=== PATIENT | male | born 1980 | race Caucasian/White ===

== ENCOUNTER 2023-11-02 15:26 | Inpatient (IN) | payer OTHER, SELFPAY ==
[2023-11-02] VITALS (7 sets, daily range): BP systolic 118–133; BP diastolic 64–96; PULSE 64–94; RESP 14–18; TEMP 36–37.2; O2SAT 95–100; BMI 30.9; BMI 30.8
--- NOTE | 2023-11-02 15:40 | EDS_ITS ---
HPI HPI - GI History of Present Illness Chief Complaint: Abd Pain Narrative Narrative: 42-year-old male who denies significant past medical history presents with diverticulitis on CT scan with possible abscess. He relates history that over the last week he has had abdominal pain and bloating, along with obstipation. No fevers or chills. He may have been nauseated but he forced himself to vomit which made him feel better temporarily. He has been showing improvement over the last 5 days with his abdominal pain, but he saw his primary care provider who ordered an outpatient CT with oral and IV contrast. After the CT was performed performed as an outpatient, he went home and had 2 large bowel movements and feels improved. However, he was told that the CT read showed diverticulitis with abscess, so he needed to come to the emergency department and be admitted for a few rounds of IV antibiotics. He denies any exacerbating or alleviating factors but states that he is feeling improved with his abdominal pain. Additionally, he denies any past abdominal surgical history. PFSH PFS Medical History no medical history Allergy/AdvReac Type Severity Reaction Status Date / Time amoxicillin Allergy Intermediate Hives Verified 11/02/23 15:29 Social History Smoking Status: Light Smoker (<10/day) ROS ROS ED ROS Narrative Constitutional: No fever, no chills. HEENT: No sore throat. No neck pain. No loss of vision. No rhinorrhea. Cardiovascular: No chest pain. No palpitations. No pedal edema. Respiratory: No cough, no shortness of breath. Abdominal: No abdominal pain. Positive nausea. No vomiting. Positive obstipation. Mild diffuse abdominal pain, improving. Genitourinary: No dysuria. No hematuria. Musculoskeletal: No myalgias. No arthralgias. Neurologic: No headaches. No dizziness. No lightheadedness. Skin: No rash. No change in color. Psychiatric: No depression. No anxiety. EXAM Physical Exam Narrative Exam Narrative: Afebrile. Vital signs noted. HEENT: Normocephalic. Atraumatic. PERRL, EOMI. Neck soft and supple. No point tenderness or step off. Cardiovascular: Regular rate and rhythm. No murmurs, rubs, or gallops appreciated. Respiratory: No tachypnea. Lungs clear to auscultation bilaterally. Gastrointestinal: Abdomen soft, nontender, with normoactive to slightly decreased bowel sounds. No rebound or guarding. Neurological: Awake. Alert. Nonfocal, nonlateralizing. Skin: No rash. Normal color. No pallor. Musculoskeletal: No pedal edema. Full range of motion extremities. Const Vital Signs: 11/02/23 15:27 Temperature 96.8 F L Temperature Source Temporal Pulse Rate 94 Respiratory Rate 16 Blood Pressure 131/96 H Blood Pressure Mean 107 Pulse Ox 100 Oxygen Delivery Method Room Air MDM MDM MDM Narrative Medical decision making narrative: I do not feel that the differential is warranted as he presents with imaging studies saying that he has diverticulitis. I reviewed the CT results from the outside facility and there is marked inflammatory changes of the sigmoid colon consistent with diverticulitis. Superior and to the left of the colon is a hypo attenuating focus with an area suspicious for phlegmon versus abscess. He may have a microperforation. There is extraluminal punctate air and superior into the left of the sigmoid is an air-fluid level. There is also moderate stool retention. I will obtain a CBC and CMP and start him on Cipro and Flagyl as he has hives to amoxicillin. I will discuss patient with Dr. Beauchamp with general surgery. I reviewed his laboratory work and he has a leukocytosis of 28.2, hemoglobin normal at 15. He has elevated neutrophils of 73 and band of 8. His CMP is significant for a sodium of 130, LFTs are slightly elevated with AST of 58 and ALT of 105 with slightly elevated alk phos. In discussion with Dr. Beauchamp, he was able to review the CT imaging that had been downloaded from the outside facility. Patient will be admitted to the medical surgical floor. Patient is in stable condition. History & Record Review Discussion w/independent historian: Patient Lab Data Attestation: I reviewed the patient's lab results. Labs: Laboratory Results - last 24 hr 11/02/23 15:40 WBC 28.2 H RBC 4.95 Hgb 15.0 Hct 44.0 MCV 88.9 MCH 30.3 MCHC 34.1 RDW Std Deviation 45.5 H RDW Coeff of Hayden 14.1 Plt Count 370 MPV 10.4 Neut % (Auto) Not Reportable Absolute Neuts (auto) 22.8 H Absolute Lymphs (auto) 2.54 Total Counted 100 Neutrophils % (Manual) 73 H Band Neutrophils % 8 H Lymphocytes % (Manual) 9 L Monocytes % (Manual) 5 Eosinophils % (Manual) 1 Metamyelocytes % 1 Myelocytes % 3 H Diff Path Review May foll Platelet Estimate ADEQUATE RBC Morphology NORM C+C Sodium 130 L Potassium 3.4 L Chloride 93 L Carbon Dioxide 32.0 Anion Gap 5 BUN 16 Creatinine 1.14 Estim Creat Clear Calc 86.27 Est GFR (MDRD) Af Amer 90 Est GFR (MDRD) Non-Af 74 BUN/Creatinine Ratio 14.0 Glucose 116 H Calcium 9.3 Total Bilirubin 1.20 H AST 58 H ALT 105 H Alkaline Phosphatase 148 H Total Protein 8.1 Albumin 3.3 Globulin 4.8 H Albumin/Globulin Ratio 0.7 L Management Discussion w/another healthcare provider: [employer] Engine [employer] (Dr. Beauchamp, general surgery) Discharge Plan Dx/Rx/DC Orders Clinical Impression: Hyponatremia, Leukocytosis, Sigmoid diverticulitis, Colonic diverticular abscess Disposition Disposition: Acute Care Hospital [facility]
[2023-11-02 15:49] LABS: Mean Corp Hgb Conc 34.1 g/dL (32-36); Mean Corpuscular Hgb 30.3 pg (27.0-32.0); Mean Corpuscular Volume 88.9 fL (80-94); Mean Platelet Vol. 10.4 fl (6.2-12.0); POSITIVE COUNT YES; POSITIVE DIFFERENTIAL YES; POSITIVE MORPHOLOGY YES; Platelet Count 370 K/mm3 (150-450); RBC Distribution Width CV 14.1 % (11.6-14.6); RBC Distribution Width SD 45.5 fl (35.1-43.9); Red Blood Count 4.95 M/mm3 (4.6-6.2); White Blood Count 28.2 K/mm3 (4.4-11.0)
[2023-11-02] MEDS: 0.9% Normal Saline (1000mL) 1,000 ML 1000 ML IV (15:49)
[2023-11-02 15:55] LABS: Differential Indicated MANUAL DIFF
[2023-11-02 16:04] LABS: ALB/GLOB Ratio 0.7 RATIO (0.9-2.4); AST(SGOT) 58 U/L (15-37); Alanine Aminotransfer ALT/SGPT 105 U/L (16-61); Albumin, Serum 3.3 g/dL (3.2-5.0); Alkaline Phosphatase 148 U/L (45-117); Anion Gap 5 (5-15); BUN 16 mg/dL (7-18); Calcium,Total 9.3 mg/dL (8.5-10.1); Chloride 93 mmol/L (98-107); Creatinine, Serum 1.14 mg/dL (0.70-1.30); EST Glomerular Filtration Rate 74 mL/min (>60); Est Glom Filt Rate - Afr Amer 90 mL/min (>60); Estimated Creatinine Clearance 86.27 ml/min; Globulin 4.8 g/dL (2.2-4.2); Glucose 116 mg/dL (74-106); Potassium 3.4 mmol/L (3.5-5.1); Protein, Total 8.1 g/dL (6.4-8.2); Sodium Level 130 mmol/L (136-145)
[2023-11-02] MEDS: Ciprofloxacin 400 MG/200 ML BAG 200 MG IV (16:27)
[2023-11-02 16:46] LABS: Eosinophil 1 % (0-5); Lymphocyte 9 % (19-41); Metamyelocyte 1 % (0-1); Monocyte 5 % (0-10); Myelocyte 3 % (0-0); Neutrophil-Band 8 % (0-5); Neutrophil-Segmented 73 % (47-70); Total Cells Counted 100 (MANUAL DIFF)
[2023-11-02 16:47] LABS: Absolute Lymphocyte Count 2.54 X10^3/uL (0.83-4.51); Absolute Neutrophil Count 22.8 X10^3/uL (2.0-7.7); Platelet Estimate ADEQUATE (ADEQ); Red Cell Morphology NORM C+C NORMAL (NORM C&C)
--- NOTE | 2023-11-02 17:13 | PCM.HP.STD ---
HPI - General General Date of Service: 11/02/23 HPI Narrative JOE GARCÍA, is a 42 M who presents to [facility] after being referred to present for emergency evaluation upon a reading of an outpatient CT scan that was arranged through his primary care provider and performed at [facility]. He shares that he has had approximately 1 week of crampy abdominal pain and constipation. He shares that he was only able to manage small bowel movements despite doing things like milk of magnesia and additional fiber. He does confirm that he was passing flatus through these times. It became so uncomfortable with his inability to have a bowel movement and is associated bloating that he began inducing vomiting to clear stomach acid. He also reports that his appetite was minimal through this time. He denies any associated fevers, chills, or nausea. Following his CT imaging performed earlier today he returned home where he had 2 large bowel movements and now reports that this significantly improved his symptoms. Patient's CT results above showed evidence of a combination of extraluminal air and phlegmon. Laboratories were obtained in our ER and showed a white blood cell count of 28,[address] imaging results were digitally pushed through to our hospital and are available in the PACS system. Patient reports a possible intermittent history of similar symptoms which he suggested occurred with the frequency no more than once per year. He does mention that these were associated with some lower abdominal cramps and constipation, but always self-limited. He otherwise denies any present diagnoses. He has no history of abdominal surgery. He denies any family history of diverticulitis, inflammatory bowel disease, or colon cancer. He has never undergone colonoscopy himself. FORMERLY [facility], [facility]–1983 Medical History no medical history Allergy/AdvReac Type Severity Reaction Status Date / Time amoxicillin Allergy Intermediate Hives Verified 11/02/23 15:29 Social History Smoking Status: Light Smoker (<10/day) ROS Constitutional Constitutional: Denies chills or fever(s) Gastrointestinal Gastrointestinal: Reports abdominal pain, constipation and vomiting; Denies diarrhea or nausea Genitourinary Genitourinary: Denies dysuria Vital Signs Vital Signs Vital Signs: 11/02/23 15:27 Temperature 96.8 F L Temperature Source Temporal Pulse Rate 94 Respiratory Rate 16 Blood Pressure 131/96 H Blood Pressure Mean 107 Pulse Ox 100 Oxygen Delivery Method Room Air Weight Weight: 215 lb 9.6 oz Body Mass Index (BMI) 30.9 Physical Exam Const alert, oriented x3, no apparent distress and well nourished General Appearance: cooperative Resp normal respiratory effort GI GI Narrative: Hirsute, obese, umbilical herniation visible. Abdomen is soft and largely nontender to palpation (even focusing over the suprapubic and mid to lower abdomen). He does have tenderness with any significant palpation over his umbilical hernia which is soft and feels to be fat?containing Results Lab / Micro Data 11/02/23 15:40 11/02/23 15:40 Labs: Laboratory Results - last 24 hr 11/02/23 15:40: WBC 28.2 H, RBC 4.95, Hgb 15.0, Hct 44.0, MCV 88.9, MCH 30.3, MCHC 34.1, RDW Std Deviation 45.5 H, RDW Coeff of Hayden 14.1, Plt Count 370, MPV 10.4, Neut % (Auto) Not Reportable, Absolute Neuts (auto) 22.8 H, Absolute Lymphs (auto) 2.54, Total Counted 100, Neutrophils % (Manual) 73 H, Band Neutrophils % 8 H, Lymphocytes % (Manual) 9 L, Monocytes % (Manual) 5, Eosinophils % (Manual) 1, Metamyelocytes % 1, Myelocytes % 3 H, Diff Path Review March, Platelet Estimate ADEQUATE, RBC Morphology NORM C+C, Sodium 130 L, Potassium 3.4 L, Chloride 93 L, Carbon Dioxide 32.0, Anion Gap 5, BUN 16, Creatinine 1.14, Estim Creat Clear Calc 86.27, Est GFR (MDRD) Af Amer 90, Est GFR (MDRD) Non-Af 74, BUN/Creatinine Ratio 14.0, Glucose 116 H, Calcium 9.3, Total Bilirubin 1.20 H, AST 58 H, ALT 105 H, Alkaline Phosphatase 148 H, Total Protein 8.1, Albumin 3.3, Globulin 4.8 H, Albumin/Globulin Ratio 0.7 L Assessment & Plan Assessment/Plan (1) Colonic diverticular abscess: (2) Sigmoid diverticulitis: PLAN: Plan This is a 42-year-old male with no significant past medical history presents with a weeklong history of constipation and crampy abdominal pain. He had an outpatient CT scan performed today through an outside hospital that showed evidence of complicated diverticulitis. Following the CT scan he had a number of bowel movements from the imaging contrast and reports significant spontaneous resolution of his symptoms. In fact, on exam he denies tenderness with deeper palpation in the vicinity of the inflammation showing on CT imaging. However, he does have a leukocytosis of 28,[address] imaging shows a contained area of air/phlegmon approximately 5 cm in size. I held a detailed conversation with the patient and his spouse regarding the natural history of diverticulitis and reviewed his personal case details with them. With the benign nature of his exam, I would like to proceed with conservative management upfront. Patient does have a history of hives to amoxicillin so he has been started empirically on Cipro and Flagyl. At this juncture I will plan to admit to inpatient and continue these antibiotics with plans to reimage in 48 hours to assess for any possible need for percutaneous drainage. Charges/Coding Visit Charges Inpatient E&M: 06132 Init Hosp L2
--- NOTE | 2023-11-02 17:29 | NURSING ---
MED SURG NICCI DIVERTICULITIS, DIVERTICULAR ABSCESS
[2023-11-02] MEDS: metroNIDAZOLE 500 MG/100 ML BAG 100 MG IV ×2 (17:34→21:43)
--- NOTE | 2023-11-02 17:35 | NURSING ---
MED SURG BOR
[2023-11-02] MEDS: 0.9% Normal Saline (1000mL) 1,000 ML 125 ML IV (21:41)
[2023-11-02] MEDS: 0.9% Saline Lock 10 ML Syringe IV (21:43)
[2023-11-03 01:58] VITALS: BP 131/78; PULSE 73; RESP 16; TEMP 36.8; O2SAT 95
[2023-11-03] MEDS: Ciprofloxacin 400 MG/200 ML BAG 200 MG IV ×3 (02:00→20:49)
[2023-11-03] MEDS: metroNIDAZOLE 500 MG/100 ML BAG 100 MG IV ×3 (06:18→23:27)
[2023-11-03] MEDS: 0.9% Normal Saline (1000mL) 1,000 ML 125 ML IV ×2 (06:19→20:12)
[2023-11-03 06:23] VITALS: BP 135/98; PULSE 70; RESP 18; TEMP 36.7; O2SAT 95
--- NOTE | 2023-11-03 07:22 | PCM.PN.SRG ---
Subjective Subjective Patient seen and examined during AM rounds. He reports that he feels somewhat better and that this is the best he has felt in over a week. He confirms 3 additional bowel movements overnight. He denies any difficulty with urination. Objective Data Objective Data Vital Signs: Vital Signs Temp Pulse Resp BP Pulse Ox O2 Del Method 98.1 F 70 18 135/98 H 95 Room Air 11/03/23 06:23 11/03/23 06:23 11/03/23 06:23 11/03/23 06:23 11/03/23 06:23 11/03/23 06:23 Oxygen Delivery Method Room Air Weight: 215 lb 6.266 oz Body Mass Index (BMI) 30.8 Intake & Output: Intake and Output for Last 24 Hours 11/01/23 11/02/23 11/03/23 23:59 23:59 23:59 Intake Total 1400 / 1400 1200 / 1200 Balance 1400 / 1400 1200 / 1200 Lab / Micro Data 11/02/23 15:40 11/02/23 15:40 Labs: Laboratory Results - last 24 hr 11/02/23 15:40: WBC 28.2 H, RBC 4.95, Hgb 15.0, Hct 44.0, MCV 88.9, MCH 30.3, MCHC 34.1, RDW Std Deviation 45.5 H, RDW Coeff of Hayden 14.1, Plt Count 370, MPV 10.4, Neut % (Auto) Not Reportable, Absolute Neuts (auto) 22.8 H, Absolute Lymphs (auto) 2.54, Total Counted 100, Neutrophils % (Manual) 73 H, Band Neutrophils % 8 H, Lymphocytes % (Manual) 9 L, Monocytes % (Manual) 5, Eosinophils % (Manual) 1, Metamyelocytes % 1, Myelocytes % 3 H, Diff Path Review March, Platelet Estimate ADEQUATE, RBC Morphology NORM C+C, Sodium 130 L, Potassium 3.4 L, Chloride 93 L, Carbon Dioxide 32.0, Anion Gap 5, BUN 16, Creatinine 1.14, Estim Creat Clear Calc 86.27, Est GFR (MDRD) Af Amer 90, Est GFR (MDRD) Non-Af 74, BUN/Creatinine Ratio 14.0, Glucose 116 H, Calcium 9.3, Total Bilirubin 1.20 H, AST 58 H, ALT 105 H, Alkaline Phosphatase 148 H, Total Protein 8.1, Albumin 3.3, Globulin 4.8 H, Albumin/Globulin Ratio 0.7 L Physical Exam Resp normal respiratory effort GI GI Narrative: Nondistended, soft, nontender to palpation even deeper palpation across the left lower quadrant and suprapubic positions Assessment & Plan Assessment/Plan (1) Colonic diverticular abscess: (2) Sigmoid diverticulitis: PLAN: Plan This is a 42-year-old male with no significant past medical history presents with a weeklong history of constipation and crampy abdominal pain. He had an outpatient CT scan performed today through an outside hospital that showed evidence of complicated diverticulitis. He was admitted here on 11/02/2023 after he was referred for emergency room evaluation upon reporting of this CT imaging. Overnight he had an uneventful course and continues to report near complete resolution of his symptoms. His exam remains benign. ?Follow-up a.m. labs ? Patient okay for clear liquid diet with Ensure clears ? Planning to repeat CT imaging of the abdomen pelvis with p.o. and IV contrast tomorrow Charges/Coding Visit Charges Inpatient E&M: 95094 Subs Hosp L2
[2023-11-03 07:43] LABS: Hematocrit 41.5 % (40-54); Hemoglobin 14.2 g/dL (13.0-16.5); Mean Corp Hgb Conc 34.2 g/dL (32-36); Mean Corpuscular Hgb 30.5 pg (27.0-32.0); Mean Corpuscular Volume 89.1 fL (80-94); Mean Platelet Vol. 10.5 fl (6.2-12.0); POSITIVE COUNT YES; POSITIVE DIFFERENTIAL YES; POSITIVE MORPHOLOGY YES; Platelet Count 374 K/mm3 (150-450); RBC Distribution Width CV 14.5 % (11.6-14.6); RBC Distribution Width SD 47.2 fl (35.1-43.9); Red Blood Count 4.66 M/mm3 (4.6-6.2); White Blood Count 18.5 K/mm3 (4.4-11.0)
[2023-11-03 07:49] LABS: Differential Indicated MANUAL DIFF
[2023-11-03 08:17] LABS: Anion Gap 8 (5-15); BUN 11 mg/dL (7-18); BUN/Creat Ratio 14.2 RATIO (10-20); Calcium,Total 8.2 mg/dL (8.5-10.1); Chloride 101 mmol/L (98-107); Creatinine, Serum 0.78 mg/dL (0.70-1.30); EST Glomerular Filtration Rate 116 mL/min (>60); Est Glom Filt Rate - Afr Amer 140 mL/min (>60); Estimated Creatinine Clearance 126.09 ml/min; Glucose 89 mg/dL (74-106); Magnesium 2.7 mg/dL (1.6-2.6); Phosphorus 2.7 mg/dL (2.5-4.9); Potassium 3.1 mmol/L (3.5-5.1); Sodium Level 137 mmol/L (136-145)
[2023-11-03 09:02] LABS: Eosinophil 1 % (0-5); Lymphocyte 15 % (19-41); Metamyelocyte 1 % (0-1); Monocyte 4 % (0-10); Myelocyte 2 % (0-0); Neutrophil-Band 4 % (0-5); Neutrophil-Segmented 73 % (47-70); Platelet Estimate ADEQUATE (ADEQ); Red Cell Morphology NORM C+C NORMAL (NORM C&C); Total Cells Counted 100 (MANUAL DIFF)
[2023-11-03 09:03] LABS: Absolute Lymphocyte Count 2.79 X10^3/uL (0.83-4.51); Absolute Neutrophil Count 14.2 X10^3/uL (2.0-7.7)
[2023-11-03 09:19] VITALS: BP 135/91; PULSE 84; RESP 18; TEMP 36.8; O2SAT 98
--- NOTE | 2023-11-03 12:05 | CASEMGMT ---
SOCO SWANN Assessment: Face to Face with pt for initial transition planning/care coordination assessment. RN SHREE introduced self and role at [facility], pt voices understanding and consents to assessment. Pt is A/O x4 and answers all questions appropriately at this time. Patient sitting up in chair, no distress. Patient's mother and present, patient agreeable to assessment with visitors present. Care providers, pharmacy, and demographics verified/updated. Admitting Dx: Complicated diverticulitis. PCP: Dr. Jamar Roldan. Specialists: None. Preferred Pharmacy: [facility] in [place]. Insurance: [employer]. Prescription Benefit: yes LW/HPOA: Pt denies having a LW/DPOA and denies need for info regarding AD. LNOK: Capri Clark, . Living Arrangements: Pt lives with and 2 children. One story home with 2 steps to enter. Patient states I with ADLs and denies concerns at home. Transportation: Pt drives self and denies concerns with transportation. DME: Cane and walker, doesn't use AD. HHC/SNF: Denies hx. Pt states no concerns with going home at time of dc. Pt states no further concerns/needs. CM to follow. Advised pt to ask CM if any further question/concerns/needs arise, voices understanding. Pt Goal: Home. Plan: Home.
[2023-11-03 13:56] LABS: Pathologist Review Reviewed
[2023-11-03 15:30] VITALS: BP 126/91; PULSE 81; RESP 18; TEMP 37.1; O2SAT 99
[2023-11-03 20:18] VITALS: BP 128/79; PULSE 65; RESP 16; TEMP 36.4; O2SAT 95
[2023-11-03] MEDS: 0.9% Saline Lock 10 ML Syringe IV (20:48)
[2023-11-04] VITALS (18 sets, daily range): BP systolic 123–171; BP diastolic 81–129; PULSE 64–73; RESP 12–18; TEMP 36.4–36.8; O2SAT 92–99
[2023-11-04] MEDS: 0.9% Saline Lock 10 ML Syringe IV ×2 (04:33→05:46)
[2023-11-04] MEDS: metroNIDAZOLE 500 MG/100 ML BAG 100 MG IV ×2 (04:34→14:54)
[2023-11-04] MEDS: 0.9% Normal Saline (1000mL) 1,000 ML 75 ML IV (06:41)
--- NOTE | 2023-11-04 07:00 | CT_ITS ---
EXAM: CT abdomen and pelvis with contrast. HISTORY: Perforated sigmoid diverticulitis TECHNIQUE: CT Abdomen And Pelvis W/ Contrast Injection. A radiation dose optimization technique was used for this scan. COMPARISON: None. LIMITATIONS: None. LOWER CHEST: Mild atelectasis in the left lung base.. LIVER: Normal. GALLBLADDER: Normal. BILE DUCTS: Normal. PANCREAS: Normal. SPLEEN: Normal. ADRENAL GLANDS: Normal. KIDNEYS/URETERS/BLADDER: Cyst in the left kidney. No hydronephrosis. AORTA: Normal caliber. BOWEL/MESENTERY: Multiple diverticula are identified. There is extensive pericolonic inflammatory change at the sigmoid colon. A collection of fluid and gas in the same region measures 6.2 x 6 cm. No small bowel obstruction. APPENDIX: Normal. PERITONEUM: No gross free fluid.. REPRODUCTIVE ORGANS: Normal. BONES/SOFT TISSUES: No acute fracture. Right hip prosthesis. 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 OTHER: None. CONCLUSION: Sigmoid diverticulitis with localized perforation and a 6.2 cm abscess. Electronically Signed: Yonatan Obando MD at 7:42 EST , CT/Abdomen/Pelvis WITH Contrast IMPRESSION: undefined
[2023-11-04 08:15] LABS: Hematocrit 41.1 % (40-54); Hemoglobin 13.9 g/dL (13.0-16.5); Mean Corp Hgb Conc 33.8 g/dL (32-36); Mean Corpuscular Hgb 30.2 pg (27.0-32.0); Mean Corpuscular Volume 89.3 fL (80-94); Mean Platelet Vol. 10.7 fl (6.2-12.0); POSITIVE COUNT YES; POSITIVE MORPHOLOGY YES; Platelet Count 377 K/mm3 (150-450); RBC Distribution Width CV 14.5 % (11.6-14.6); White Blood Count 15.3 K/mm3 (4.4-11.0)
[2023-11-04 08:24] LABS: Differential Indicated MANUAL DIFF
--- NOTE | 2023-11-04 08:24 | CT_ITS ---
PROCEDURE: CT DIRECTED ABSCESS DRAINAGE, PERITONEAL DATE OF EXAMINATION: PROCEDURE: CT DIRECTED ABSCESS DRAINAGE, PERITONEAL DATE OF EXAMINATION: INDICATION: Male, 42 years old. PHYSICIAN: Lobo Schofield M.D. CONSENT: Written informed consent was obtained having explained the risks, benefits and alternatives in detail with the patient who accepted the risks and agreed to proceed. Laboratory review and clinical assessment was performed. CONSCIOUS SEDATION PROTOCOL: The Drugs used were: 5 mg Versed, IV., and 125 mcg Fentanyl, IV. The sedation time was: 15 minutes. The conscious sedation protocol was independently monitored. RADIATION DOSAGE (If Supplied By Facility): CTDIvol = ( 15.5 ) mGy, DLP = ( 1113.17 ) mGycm. Individualized dose optimization techniques were utilized. TECHNIQUE: CT sections were made through the abdomen and pelvis revealing an abscess in the left side of the pelvis adjacent to the sigmoid colon. The skin surface was prepped and draped in a sterile fashion. Puncture of this collection was performed initially with a 18-gauge biopsy needle and fluid was aspirated. An 8 Turkmen Drainage catheter was then inserted into the collection and formed into position. Additional fluid was aspirated for a total of approximately 20 cc of cloudy red fluid. The catheter was secured into position to allow for continued drainage. Followup CT sections reveals good position of the catheter. CT/CT Guidance Abscess Drg w/Cath IMPRESSION: 1. CT directed drainage of a fluid /abscess collection using CT image guidance and image documentation as described. 2. Conscious Sedation protocol utilized with independent monitoring Electronically Signed: Lobo Schofield MD at 13:50 EST ,
--- NOTE | 2023-11-04 08:24 | PCM.PN.SRG ---
Subjective Subjective Patient seen and examined during AM rounds. He reports no acute events overnight. He states that his abdominal pain is about as it was yesterday. Objective Data Objective Data Vital Signs: Vital Signs Temp Pulse Resp BP Pulse Ox O2 Del Method 98.0 F 73 16 131/88 H 98 Room Air 11/04/23 04:23 11/04/23 04:23 11/04/23 04:23 11/04/23 04:23 11/04/23 04:23 11/04/23 04:23 Oxygen Delivery Method Room Air Weight: 215 lb 6.266 oz Body Mass Index (BMI) 30.8 Intake & Output: Intake and Output for Last 24 Hours 11/02/23 11/03/23 11/04/23 23:59 23:59 23:59 Intake Total 1400 / 1400 3186.67 / 4186.67 2200 / 2200 Output Total 360 / 360 Balance 1400 / 1400 2826.67 / 3826.67 2200 / 2200 Lab / Micro Data 11/04/23 07:00 11/04/23 07:00 Labs: Laboratory Results - last 24 hr 11/02/23 15:40: Diff Path Review Reviewed 11/03/23 06:56: Absolute Neuts (auto) 14.2 H, Absolute Lymphs (auto) 2.79, Total Counted 100, Neutrophils % (Manual) 73 H, Band Neutrophils % 4, Lymphocytes % (Manual) 15 L, Monocytes % (Manual) 4, Eosinophils % (Manual) 1, Metamyelocytes % 1, Myelocytes % 2 H, Diff Path Review May , Platelet Estimate ADEQUATE, RBC Morphology NORM C+C 11/04/23 07:00: WBC 15.3 H, RBC 4.60, Hgb 13.9, Hct 41.1, MCV 89.3, MCH 30.2, MCHC 33.8, RDW Std Deviation 47.0 H, RDW Coeff of Hayden 14.5, Plt Count 377, MPV 10.7, Neut % (Auto) Not Reportable Radiography Diagnostic Testing: Radiology Impression Abdomen/Pelvis CT 11/04/23 07:00 IMPRESSION: undefined ADDENDUM: 11/04/23821 IMPRESSION: undefined Physical Exam Const oriented x3 and no apparent distress Resp normal respiratory effort GI GI Narrative: Mild tenderness in the mid to lower abdomen without guarding. Umbilical hernia remains stable in appearance. Otherwise unremarkable abdominal exam. Assessment & Plan Assessment/Plan (1) Colonic diverticular abscess: (2) Sigmoid diverticulitis: PLAN: Plan This is a 42-year-old male with no significant past medical history presents with a weeklong history of constipation and crampy abdominal pain. He had an outpatient CT scan performed today through an outside hospital that showed evidence of complicated diverticulitis. He was admitted here on 11/02/2023 after he was referred for emergency room evaluation upon reporting of this CT imaging. Overnight he had an uneventful course and CT imaging was repeated this morning. The area in question from his prior scan. More consolidated and measures 6 x 6 cm. I believed identified a window between patient's small bowel and colon and this was confirmed by radiology so he will now proceed to the radiology suite for CT-guided percutaneous drainage of this abscess. ? Continue to trend a.m. labs ? Follow-up abscess cultures ? Continue empiric Cipro and Flagyl ? Patient okay for clear liquid diet with Ensure clears Charges/Coding Visit Charges Inpatient E&M: 63703 Subs Hosp L2
[2023-11-04 08:31] LABS: Anion Gap 6 (5-15); BUN 8 mg/dL (7-18); BUN/Creat Ratio 10.5 RATIO (10-20); Calcium,Total 8.1 mg/dL (8.5-10.1); Chloride 99 mmol/L (98-107); Creatinine, Serum 0.76 mg/dL (0.70-1.30); EST Glomerular Filtration Rate 119 mL/min (>60); Est Glom Filt Rate - Afr Amer 144 mL/min (>60); Glucose 90 mg/dL (74-106); Magnesium 2.5 mg/dL (1.6-2.6); Phosphorus 2.9 mg/dL (2.5-4.9); Potassium 3.2 mmol/L (3.5-5.1); Sodium Level 134 mmol/L (136-145)
[2023-11-04] MEDS: Ciprofloxacin 400 MG/200 ML BAG 200 MG IV ×2 (08:54→23:22)
--- NOTE | 2023-11-04 09:00 | NURSING ---
Pt aware that Radiology wants to put a drain in. Pt wanted to talk to Dr. Schofield about his options. Ralph in Radiology aware and states she can see if Twila his MATERIAL MOVER could come up and talk to pt. Pt understands he is npo now. Ralph is aware that pt got done drinking his 240cc vegetable broth when this RN entered his room at approxmately 0840am this morning.
[2023-11-04 09:09] LABS: International Normalized Ratio 1.1; Prothrombin Time (Protime)PT. 14.1 SECONDS (11.7-14.9)
[2023-11-04 09:10] LABS: Partial Thromboplast Time 33.2 Seconds (24.1-36.2)
[2023-11-04 09:54] LABS: Eosinophil 1 % (0-5); Lymphocyte 17 % (19-41); Metamyelocyte 3 % (0-1); Monocyte 2 % (0-10); Myelocyte 4 % (0-0); Neutrophil-Band 2 % (0-5); Neutrophil-Segmented 71 % (47-70); Platelet Estimate ADEQUATE (ADEQ); Red Cell Morphology NORM C+C NORMAL (NORM C&C); Total Cells Counted 100 (MANUAL DIFF)
[2023-11-04 09:55] LABS: Absolute Neutrophil Count 11.1 X10^3/uL (2.0-7.7)
[2023-11-04] MEDS: 0.9% Normal Saline (250mL Bag) 250 ML 15 ML IV (11:37)
[2023-11-04] MEDS: Midazolam 2 MG/2 ML Syringe IV ×4 (11:38→12:05)
[2023-11-04] MEDS: fentaNYL 100 MCG/2 ML Ampul IV ×4 (11:40→12:02)
[2023-11-04] MEDS: Lidocaine 2% (20 ml mdv) 20 ML Vial INFILT (11:43)
[2023-11-04 13:21] LABS: Pathologist Review Reviewed
--- NOTE | 2023-11-04 13:33 | PRO.PCM_ITS ---
Procedure Report Date of Procedure: 11/04/23 Assessment & Plan Assessment/Plan (1) Colonic diverticular abscess: PLAN: PROCEDURE: CT DIRECTED ABSCESS DRAINAGE, diverticular ORDERING PROVIDER: Dr. Beauchamp INDICATION: Male, 42 years old. Colonic diverticular abscess. PROVIDER: Jaclyn Delong APRN-TITLE INVESTIGATOR CONSENT: Written informed consent was obtained having explained the risks, benefits and alternatives in detail with the patient who accepted the risks and agreed to proceed. Laboratory review and clinical assessment was performed. PRE-PROCEDURE SEDATION ASSESSMENT: Current history and physical dictated by referring physician and reviewed. No clinical changes since date of exam. Patient has an ASA Class of 1. PROCEDURAL SEDATION PROTOCOL: The Drugs used were: 5 mg Versed, IV, and 125 mcg Fentanyl, IV. The sedation time was: 32 minutes, starting at 1138 and terminated at 1210. The procedural sedation protocol was independently monitored by the department nurse. RADIATION DOSAGE (If Supplied By Facility): CTDIvol = 12.086 mGy, DLP = 937.8 mGycm Individualized dose optimization techniques were used for this CT. CONSENT: Written informed consent was obtained having explained the risks, benefits and alternatives in detail with the patient who accepted the risks and agreed to proceed. Laboratory review and clinical assessment was performed. TECHNIQUE: CT sections were made through the abdomen and pelvis revealing an abscess in the pelvis. The skin surface was prepped and draped in a sterile fashion. Puncture of this collection was initially attempted with a 8 Albanian catheter; however, the abscess wall was too thick to penetrate. A Drainage catheter was then inserted into the collection and formed into position. Additional fluid was aspirated for a total of approximately 200 cc of cloudy red fluid. The catheter was sutured into position to allow for continued drainage. Followup CT sections reveals good position of the catheter. IMPRESSION: 1. CT directed drainage of a fluid collection using CT image guidance and image documentation as described. 2. Procedural Sedation protocol utilized with independent monitoring by the department nurse.
[2023-11-04] MEDS: Acetaminophen 500 MG Tablet PO ×2 (14:59→20:15)
[2023-11-04] MEDS: Potassium Chloride 10mEq/100mL 10 MEQ/100 ML IV.SOLN. 100 MEQ IV BOLUS ×3 (18:07→21:52)
[2023-11-05 00:44] VITALS: BP 133/93; PULSE 65; RESP 18; TEMP 36.7; O2SAT 94
[2023-11-05] MEDS: metroNIDAZOLE 500 MG/100 ML BAG 100 MG IV ×3 (00:47→14:39)
[2023-11-05] MEDS: Potassium Chloride 10mEq/100mL 10 MEQ/100 ML IV.SOLN. 100 MEQ IV BOLUS (02:08)
[2023-11-05] MEDS: 0.9% Normal Saline (1000mL) 1,000 ML 75 ML IV (02:08)
[2023-11-05 06:22] LABS: Hematocrit 42.9 % (40-54); Hemoglobin 14.5 g/dL (13.0-16.5); Mean Corp Hgb Conc 33.8 g/dL (32-36); Mean Corpuscular Hgb 30.3 pg (27.0-32.0); Mean Corpuscular Volume 89.7 fL (80-94); Mean Platelet Vol. 10.2 fl (6.2-12.0); POSITIVE COUNT YES; POSITIVE MORPHOLOGY YES; Platelet Count 408 K/mm3 (150-450); RBC Distribution Width CV 14.5 % (11.6-14.6); RBC Distribution Width SD 48.1 fl (35.1-43.9); Red Blood Count 4.78 M/mm3 (4.6-6.2)
[2023-11-05 06:36] LABS: Differential Indicated MANUAL DIFF
[2023-11-05 06:44] VITALS: BP 146/99; PULSE 73; RESP 18; TEMP 36.6; O2SAT 96
[2023-11-05 06:53] LABS: Anion Gap 5 (5-15); BUN 7 mg/dL (7-18); BUN/Creat Ratio 9.5 RATIO (10-20); Calcium,Total 8.2 mg/dL (8.5-10.1); Chloride 103 mmol/L (98-107); Creatinine, Serum 0.74 mg/dL (0.70-1.30); EST Glomerular Filtration Rate 122 mL/min (>60); Est Glom Filt Rate - Afr Amer 148 mL/min (>60); Glucose 87 mg/dL (74-106); Magnesium 2.4 mg/dL (1.6-2.6); Phosphorus 2.9 mg/dL (2.5-4.9); Potassium 3.4 mmol/L (3.5-5.1); Sodium Level 135 mmol/L (136-145)
--- NOTE | 2023-11-05 07:55 | PCM.PN.SRG ---
Subjective Subjective Patient reports no abdominal pain this morning. He had a bowel movement this morning. He denies any nausea or vomiting. He denies any fevers or chills. He feels well Objective Data Objective Data Vital Signs: Vital Signs Temp Pulse Resp BP Pulse Ox O2 Del Method O2 Flow Rate 97.8 F 73 18 146/99 H 96 Room Air 2 11/05/23 06:44 11/05/23 06:44 11/05/23 06:44 11/05/23 06:44 11/05/23 06:44 11/05/23 06:44 11/04/23 12:10 Oxygen Flow Rate (L/min) 2 Oxygen Delivery Method Room Air Weight: 215 lb 6.266 oz Body Mass Index (BMI) 30.8 Intake & Output: Intake and Output for Last 24 Hours 11/03/23 11/04/23 11/05/23 23:59 23:59 23:59 Intake Total 3186.67 / 4186.67 4160 / 4160 650 / 650 Output Total 360 / 360 26 / 34 Balance 2826.67 / 3826.67 4134 / 4126 634 / 634 Lab / Micro Data 11/05/23 05:38 11/05/23 05:38 Labs: Laboratory Results - last 24 hr 11/03/23 06:56: Diff Path Review Reviewed 11/04/23 07:00: WBC 15.3 H, RBC 4.60, Hgb 13.9, Hct 41.1, MCV 89.3, MCH 30.2, MCHC 33.8, RDW Std Deviation 47.0 H, RDW Coeff of Hayden 14.5, Plt Count 377, MPV 10.7, Neut % (Auto) Not Reportable, Absolute Neuts (auto) 11.1 H, Absolute Lymphs (auto) 2.60, Total Counted 100, Neutrophils % (Manual) 71 H, Band Neutrophils % 2, Lymphocytes % (Manual) 17 L, Monocytes % (Manual) 2, Eosinophils % (Manual) 1, Metamyelocytes % 3 H, Myelocytes % 4 H, Diff Path Review May , Platelet Estimate ADEQUATE, RBC Morphology NORM C+C, Sodium 134 L, Potassium 3.2 L, Chloride 99, Carbon Dioxide 29.0, Anion Gap 6, BUN 8, Creatinine 0.76, Estim Creat Clear Calc 129.40, Est GFR (MDRD) Af Amer 144, Est GFR (MDRD) Non-Af 119, BUN/Creatinine Ratio 10.5, Glucose 90, Calcium 8.1 L, Phosphorus 2.9, Magnesium 2.5 11/04/23 08:41: PT 14.1, INR 1.1, APTT 33.2 11/05/23 05:38: WBC 18.0 H, RBC 4.78, Hgb 14.5, Hct 42.9, MCV 89.7, MCH 30.3, MCHC 33.8, RDW Std Deviation 48.1 H, RDW Coeff of Hayden 14.5, Plt Count 408, MPV 10.2, Neut % (Auto) Not Reportable, Sodium 135 L, Potassium 3.4 L, Chloride 103, Carbon Dioxide 27.0, Anion Gap 5, BUN 7, Creatinine 0.74, Estim Creat Clear Calc 132.90, Est GFR (MDRD) Af Amer 148, Est GFR (MDRD) Non-Af 122, BUN/Creatinine Ratio 9.5 L, Glucose 87, Calcium 8.2 L, Phosphorus 2.9, Magnesium 2.4 Micro: Microbiology 11/04/23 12:10 Wound Abcess - Abdominal Gram Stain - Final Radiography Diagnostic Testing: Radiology Impression Abdomen/Pelvis CT 11/04/23 07:00 IMPRESSION: undefined ADDENDUM: 11/04/23 0822 IMPRESSION: undefined Abscess Drainage CT 11/04/23 08:24 IMPRESSION: 1. CT directed drainage of a fluid /abscess collection using CT image guidance and image documentation as described. 2. Conscious Sedation protocol utilized with independent monitoring Electronically Signed: Lobo Schofield MD at 13:50 EST , Physical Exam Const oriented x3 and no apparent distress Cardio regular rate and regular rhythm GI soft to palpation and non-tender Assessment & Plan Assessment/Plan (1) Colonic diverticular abscess: PLAN: Patient has diverticulitis with diverticular abscess. He had a drain placed yesterday. His white count did rise slightly but this may be due to having the drain placed. He is not complaining of any abdominal pain and he is having bowel function. I will advance him to a full liquid diet. If he is doing well this afternoon I may discharge him home on a full liquid diet and oral antibiotics versus keeping him for 1 more day and rechecking labs in the morning. Alcides Diaz MD Pager: [facility] [address] [place] [address], [address] [place] [phone] Office:
[2023-11-05] MEDS: Ciprofloxacin 400 MG/200 ML BAG 200 MG IV (10:15)
[2023-11-05 12:27] LABS: Lymphocyte 9 % (19-41); Monocyte 5 % (0-10); Myelocyte 3 % (0-0); Neutrophil-Band 3 % (0-5); Neutrophil-Segmented 80 % (47-70); Total Cells Counted 100 (MANUAL DIFF)
[2023-11-05 12:48] LABS: Platelet Estimate ADEQUATE (ADEQ); Red Cell Morphology NORM C+C NORMAL (NORM C&C)
[2023-11-05 13:05] LABS: Absolute Neutrophil Count 14.9 X10^3/uL (2.0-7.7)
[2023-11-05 13:06] LABS: Absolute Lymphocyte Count 1.62 X10^3/uL (0.83-4.51)
[2023-11-05 14:40] VITALS: BP 131/89; PULSE 69; RESP 14; TEMP 36.7
[2023-11-05] MEDS: 0.9% Saline Lock 10 ML Syringe IV (14:40)
[2023-11-05 14:45] VITALS: O2SAT 96
--- NOTE | 2023-11-05 15:08 | PCM.DC.SUM ---
Providers Date of Admission: 11/02/23 Primary Care Physician: Dr. Jamar Roldan MD Reason For Visit: COMPLICATED DIVERTICULITIS Diagnosis Discharge Diagnosis (1) Colonic diverticular abscess: Status: Acute Code(s): K57.20 - Diverticulitis of large intestine with perforation and abscess without bleeding Plan: Patient has diverticulitis with diverticular abscess. He had a drain placed yesterday. His white count did rise slightly but this may be due to having the drain placed. He is not complaining of any abdominal pain and he is having bowel function. I will advance him to a full liquid diet. If he is doing well this afternoon I may discharge him home on a full liquid diet and oral antibiotics versus keeping him for 1 more day and rechecking labs in the morning. Alcides Diaz MD Pager: [facility] [address] [place] [address], [address] [place] [address] Office: Medications at Discharge Home Medications acetaminophen 500 mg tablet 500 mg PO Q4H PRN PRN Pain Score 1-10 #0 tabs 11/05/23 ciprofloxacin HCl 500 mg tablet (Cipro) 500 mg PO BID 10 days #20 tabs 11/05/23 metronidazole 500 mg tablet 500 mg PO Q8H 10 days #30 tabs 11/05/23 Hospital Course Summary of Care Provided Hospital Course: Patient was transferred here with perforated diverticulitis with abscess. He was kept on antibiotics and 2 days later a repeat CT was performed. That same day a percutaneous drain was placed. Patient is doing well and tolerating diet and having bowel movements and I will discharge him home on full liquid diet. Weight / BMI Weight Weight: 215 lb 6.266 oz Body Mass Index (BMI) 30.8 ABG / Lab / Microbiology Data 11/05/23 05:38 11/05/23 05:38 Laboratory: Laboratory Results - last 24 hr 11/05/23 05:38: WBC 18.0 H, RBC 4.78, Hgb 14.5, Hct 42.9, MCV 89.7, MCH 30.3, MCHC 33.8, RDW Std Deviation 48.1 H, RDW Coeff of Hayden 14.5, Plt Count 408, MPV 10.2, Neut % (Auto) Not Reportable, Absolute Neuts (auto) 14.9 H, Absolute Lymphs (auto) 1.62, Total Counted 100, Neutrophils % (Manual) 80 H, Band Neutrophils % 3, Lymphocytes % (Manual) 9 L, Monocytes % (Manual) 5, Myelocytes % 3 H, Diff Path Review May foll, Platelet Estimate ADEQUATE, RBC Morphology NORM C+C, Sodium 135 L, Potassium 3.4 L, Chloride 103, Carbon Dioxide 27.0, Anion Gap 5, BUN 7, Creatinine 0.74, Estim Creat Clear Calc 132.90, Est GFR (MDRD) Af Amer 148, Est GFR (MDRD) Non-Af 122, BUN/Creatinine Ratio 9.5 L, Glucose 87, Calcium 8.2 L, Phosphorus 2.9, Magnesium 2.4 Microbiology: Microbiology 11/04/23 12:10 Wound Abcess - Abdominal Gram Stain - Final 11/04/23 12:10 Wound Abcess - Abdominal Wound Culture - Preliminary GNR lactose strike plate attacher Gram positive organism D/C Instructions Discharge Diet: - (Full liquid diet) Discharge Activity: Return to Normal Activity and May Drive Call your doctor if your incision/area has: Increased Pain/ Swelling Call your doctor if you observe: Fever of 101 or Higher and Inability to have a bowel movement Additional Instructions: Empty drain as needed and record daily output amount Please Follow Up With: Amos Beauchamp MD When: call tuesday to make follow up appt [phone] Meaningful Use Info Meaningful Use Diagnoses (Choose all that apply): None applicable Discharge Plan Admission Admit Date/Time: 11/02/23 17:27 Attending Provider: Amos Beauchamp Primary Care Provider: Jamar Roldan Instructions Patient Instructions: Jan King Drain Tube Dc, Post Op Drain Emptying Steps Discharge Orders/Prescriptions Prescriptions: New acetaminophen 500 mg Tablet 500 mg PO Q4H PRN PRN (Reason: Pain Score 1-10) Qty: 0 0RF ciprofloxacin HCl [Cipro] 500 mg tablet 500 mg PO BID 10 Days Qty: 20 0RF metronidazole 500 mg tablet 500 mg PO Q8H 10 Days Qty: 30 0RF Referrals / Follow Up: Jamar Roldan MD [Primary Care Provider] - Disposition Disposition (needs filled in before D/C Order can be placed): Home, Self Care
[2023-11-05 16:00] VITALS: BP 127/87; PULSE 71; RESP 16; TEMP 36.8; O2SAT 95
[2023-11-07 13:18] LABS: Pathologist Review Reviewed
[2023-11-07 13:24] LABS: Pathologist Review Reviewed
== END 2023-11-05 16:20 | disposition home or self-care (01) | DRG 392 ==
LOC: ED 17:00 → MS3 19:08
PROVIDERS: Nurse Practitioner Acute Care; Admitting Provider Surgery; Emergency Provider Emergency Medicine; PCP Family Medicine; Visit Provider Surgery
DX: K57.20 Diverticulitis of large intestine with perforation and abscess without bleeding (principal); E87.1 Hypo-osmolality and hyponatremia; F17.200 Nicotine dependence, unspecified, uncomplicated
CPT/HCPCS: 36415; 74177; 75989; 80048; 80053; 83735; 84100; 85025; 85610; 85730; 87070; 87075; 87077; 87186; 87205; 99156; 99157; 99284; 99406; J7030; J7050; Q9967; A4216; J0744

== ENCOUNTER 2024-01-06 06:38 | Day surgery (SDC) | payer OTHER, SELFPAY ==
--- NOTE | 2024-01-06 | COLBX_PTH ---
PATHOLOGY RESULTS PATIENT: JOE GARCÍA LOC: EN U#:[id number] AGE/SX: 43/M ROOM: RE01/06/[address]: Dr. Amos Beauchamp MD : 1980 BED: DIS: 01/06/2024 SPEC #: [id number] RECD: 01/06/24 13:25 STATUS: MILTON RIOSCarlos #: [id number] MAYITO: 01/06/24 00:[address]: Amos Beauchamp DEPT: SURGICAL PATHOLOGY RECD BY: David Guillermo ENTERED: 01/09/24 07:59 SP TYPE: COLON BX OTHR DR: Dr. Jamar Roldan MD Tissues: Sigmoid colon biopsy Procedures: Surgery Specimen Level IV HEADER OPERATION: Colonoscopy, polypectomy PRE-OP DIAGNOSIS: Colonic diverticular abscess TISSUE SUBMITTED: Sigmoid colon polyp MICROSCOPIC DIAGNOSIS Sigmoid colon polyp, biopsy: Polypoid fragments of benign colonic mucosa. See comment. AM:sahley 01/10/2024 COMMENT Thermal artifact is present. MICROSCOPIC DESCRIPTION Slides are reviewed. GROSS DESCRIPTION Received in fixative is one container labeled with the patient's name and designated sigmoid colon polyp. The specimen consists of multiple irregular fragments of light vu soft tissue that in aggregate measure 1.0 x 0.3 x 0.1 cm. The specimen is totally submitted in one cassette. / SJ:rg 01/09/2024 TC:5 CPT: 03365
--- OUTSIDE RECORDS SUMMARY | 2024-01-06 06:42 | XMS RPT_ITS | CCD ---
Author Name Unknown Address [address] [place] [address] Organization [facility] Care Team Providers Care Blood Tester Fowl Name Role Phone RATNA ABDUL Attending UnavailBOB Thompson Attending Unavailable EMORY ATKINSON DO Attending Unavailable EMORY ATKINSON DO Primary Care Unavailable EMORY ATKINSON DO Admitting Unavailable HUMBERTO DSOUZA Admitting Unavailable HUMBERTO DSOUZA Attending Unavailable HUMBERTO DSOUZA Primary Care Unavailable DR HUMBERTO DSOUZA MD Attending Unavaildeisi CISSE DRIVER MESSENGER-CPHILLIP Unavailable NEHEMIAS LAMBERT DO Unavailable Unavailable JOSE LUIS DSOUZA MD Unavailable Liana Ceron RN Unavailable Unavailable HUMBERTO DSOUZA MD Unavailable [phone] Juan PEARCE MD Unavailable Madonna Maldonado Unavailable Unavailable Xavier MALDONADO MD Unavailable Erum Valle Unavailable Unavailable Bri Bucio RN Unavailable Unavaila ble Unavailable Unavailable Allergies Allergy Classification Reported Allergen(s) Allergy Type Date of Onset Reaction(s) Facility (1 source) Amoxicillin Drug Allergy [facility] Medications Completed/Discontinued Medications Medication Drug Class(es) Dates Sig (Normalized) Sig (Original) acyclovir 800 mg oral tablet (1 source) Herpesvirus Nucleoside Analog DNA Polymerase Inhibitor, Herpes Simplex Virus Nucleoside Analog DNA Polymerase Inhibitor, Herpes Zoster Virus Nucleoside Analog DNA Polymerase Inhibitor Start: 06-12-2012 End: 02-26-2014 ACYCLOVIR, 800MG (Oral Tablet) ; 1 Tablet four-five times daily (every four hours) for 0 days Quantity: 30 {Tablet} Refills: 1 Ordered: 26-Feb-2014 Start: 12-Jun-2012 End: 26-Feb-2014 Status: Inactive levothyroxine sodium 0.088 mg oral tablet (1 source) l-Thyroxine Start: 04-02-2014 End: 09-02-2017 take 1 tablet by mouth once daily Levothyroxine Sodium 88 MCG Oral Tablet ; 1 (one) Tablet daily for 30 days Quantity: 30 {Tablet} Refills: 2 Ordered: 02-Sep-2017 Madonna Maldonado Start: 02-Apr-2014 End: 02-Sep-2017 Status: Inactive predniSONE 10 mg oral tablet (1 source) Start: 03-19-2014 End: 03-31-2014 PREDNISONE (NELY), 10MG (Oral Tablet) ; 1 (one) Tablet D 1-3=6tab daily D 4-6=4tab D 7-9=2tab W80-43=6hug for 12 days Quantity: 40 {Tablet} Refills: 0 Ordered: 01-Apr-2014 MD Juan PEARCE Start: 19-Mar-2014 End: 31-Mar-2014 Status: Inactive Comments: Days 1,2,3 = 6 tabs daily; Days 4,5,6 = 4 tabs daily; Days 7,8,9 = 2 tabs daily; Days 10,11,12 = 1 tab daily; Take with food. May take each days medication at one time Problems Active Problems Problem Classification Problem Date Documented Date Episodic/Chronic Abdominal pain (4 sources) Right lower quadrant pain; Translations: [Right lower quadrant pain] Onset: 10-31-2023 Episodic Administrative/social admission (3 sources) Patient encounter status; Translations: [Counseling, unspecified] 10-31-2023 Episodic Allergic reactions (4 sources) Urticaria; Translations: [Urticaria, unspecified] 03-19-2014 Episodic Cardiac dysrhythmias (3 sources) Tachycardia; Translations: [Tachycardia, unspecified] 04-01-2014 Episodic Essential hypertension (3 sources) Hypertensive disorder; Translations: [Essential (primary) hypertension] 04-01-2014 Chronic Osteoarthritis (4 sources) Osteoarthritis of knee, unspecified; Translations: [Osteoarthritis of hip, unspecified] Onset: 11-06-2018 Chronic Other non-traumatic joint disorders (1 source) Pain in right shoulder; Translations: [Pain in joint, shoulder region] 06-12-2012 Episodic Other screening for suspected conditions (not mental disorders or infectious disease) (3 sources) Screening status; Translations: [Encounter for screening for lipoid disorders] 04-01-2014 Episodic Other skin disorders (2 sources) Skin tag; Translations: [Other hypertrophic disorders of the skin] 10-08-2021 Episodic Past or Other Problems Problem Classification Problem Date Documented Da te Episodic/Chronic Unclassified (1 source) !Patient notification of lab results - Dr. Dsouza (Discussed with pt. on phone that there is likely an abscess from the diverticulitis and he will need to be admitted to the hospital for IV antibiotics. Pt. decided he will go to [place] [facility].). You should call our office if you have any questions. 11-02-2023 Unclassified (1 source) Abdominal Pain, Male - Symptoms include abdominal pain and nausea, while symptoms do not include vomiting or diarrhea. The pain is located in the entire abdomen. Onset was 1 week(s) ago. Associated symptoms do not include fever, jaundice, bloody stool or dysuria. Note for Abdominal pain : C/O bloating and not able to pass stool. Is using Milk of Magnesia and stool softeners. 11-02-2023 Unclassified (1 source) Skin lesion - The skin lesion appeared gradually and has been occurring for years. The skin lesion is located on the lower extremity (right). 10-08-2021 Unclassified (1 source) recheck - other illness (abscess on upper back/neck area.). Note for recheck : finishing bactrim 09-09-2017 Unclassified (1 source) Cyst - Symptoms include a single cyst. Cyst(s) are located on the neck. Initial cyst onset was year(s) ago. Cyst changes include rapidly enlarging and becoming more painful. The patient is not currently being treated for this problem. Previous presentation included tender lesion(s). 09-02-2017 Unclassified (1 source) HYPERTENSION - Note for HYPERTENSION : still has rash at times. Here for exam. 03-19-2014 Unclassified (1 source) Rash - The rash has been occurring in an intermittent pattern for 2 weeks. The rash is characterized as red and raised above the skin. The rash was first seen on the trunk and the upper extremity. There has been associated itching, while there has been no pain. Note for Rash : Here for exam. 02-26-2014 Unclassified (1 source) Rash - The rash is characterized as red. The rash was first seen on the back (right mid back). Note for Rash : area is painful. 06-12-2012 Results Test Name Value Interpretation Reference Range Facil ity Vital Signs Date Time Vital Sign Value Performing Clinician Faci lity 10-31-2023 14:45-0500 Body height 179.07 cm Liana Ceron RN [facility], [place], [facility]. 10-31-2023 14:45-0500 Body mass index (BMI) [Ratio] 32.11 kg/m2 Liana Ceron RN [facility], [facility].; [facility], [facility]. 10-31-2023 14:45-0500 Body surface area Derived from formula 2.21 m2 Liana Ceron RN [facility], [facility].; [facility], [facility]. 10-31-2023 14:45-0500 Body temperature 98.5 [degF] Liana Ceron RN [facility], [place], [place]. Encounters Encounter Date Encounter Type Care Provider Facility Start: 11-02-2023 Emergency department patient visit EMORY LANDON [facility] Start: 11-02-2023 End: 11-02-2023 Results Review [facility]ILL[facility]AS [facility] Start: 11-02-2023 End: 11-02-2023 ambulatory HUMBERTO DSOUZA [facility] Start: 10-31-2023 End: 11-05-[address] HUMBERTO DSOUZA MD Facility:A Start: 10-31-2023 End: 10-31-2023 Office outpatient visit 15 minutes PHILLIP TAVERAS Work Phone: [facility] [place]. Start: 10-08-2021 End: 10-08-2021 Office outpatient visit 15 minutes PHILLIP BETITO DRIVER MESSENGER-C Work Phone: [employer] [facility]. Start: 12-08-2018 End: 12-08-2018 Patient encounter procedure BOB OSULLIVAN [facility] Start: 11-06-2018 Encounter for other preprocedural examination RATNA [facility] Start: 11-06-2018 End: 11-06-2018 Patient encounter procedure RATNA LIRIANO [facility] Start: 09-09-2017 End: 09-09-2017 Office outpatient visit 10 minutes PHILLIP CISSE DRIVER MESSENGER-C [facility] Start: 09-02-2017 End: 09-02-2017 Office outpatient visit 25 minutes PHILLIP MENDOZASUZANNEDAVID DRIVER MESSENGER-C Work Phone: [facility] [employer] [facility]. Start: 04-02-2014 End: 04-02-2014 Follow-up encounter PHILLIP GARCIADAVID DRIVER MESSENGER-C Work Phone: [facility] [place]. Start: 04-01-2014 End: 04-01-2014 Lab Only PHILLIP GARCIADAVID DRIVER MESSENGER-C Work Phone: [facility] [employer]. Start: 03-19-2014 End: 03-19-2014 Medication Refill/Order PHILLIP MENDOZASUZANNEDAVID DRIVER MESSENGER-C Work Phone: [facility] [employer]. Start: 03-19-2014 End: 03-19-2014 Patient encounter procedure PHILLIP GARCIADAVID DRIVER MESSENGER-C Work Phone: [facility]. Start: 02-26-2014 End: 02-26-2014 Patient encounter procedure PHILLIP GARCIAJAKOBER DRIVER MESSENGER-C Work Phone: [facility] [place] Start: 06-12-2012 End: 06-12-2012 Patient encounter procedure PHILLIP CISSE DRIVER MESSENGER-C Work Phone: [email or web address] Encounter for other preprocedural examination [facility] Procedures Date Procedure Procedure Detail Performing Clinician Start: 10-31-2023 End: 10-31-2023 Dischrg meds reconciled w/current med list HUMBERTO DSOUZA MD Work Phone: Start: 10-08-2021 End: 10-08-2021 Removal skn tags thermite welder fibrq tags any area upw/15 HUMBERTO DSOUZA MD Work Phone: Start: 09-02-2017 End: 09-02-2017 Incision & drainage abscess simple/single J EMORY MALDONADO MD Work Phone: [employer] [facility] [employer] Theresa Ceron RN Plan of Treatment Date Care Activity Detail Author Start: 10-31-2023 Ct abdomen & pelvis w/contrast material CT ABDOMEN AND PELVIS WITH IV AND ORAL CONTRAST ([id number]) Start: 31-Oct-2023 Intent [employer]; [employer]. Start: 05-16-2014 Assay of thyroid stimulating hormone tsh TSH (THYROID STIMULATING HORMONE) ([id number]) Start: 16-May-2014 21:10 Request [employer]; [employer]. 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 Immunizations Immunization Date Immunization Notes Care Provider Fa cility influenza virus vaccine, unspecified formulation PHILLIP CISSE DRIVER MESSENGER-C Work Phone: [email or web address]; tab ticketbroker Payers Date Payer Category Payer Unknown [id number] 2017 Unknown [id number] 1980 Unknown [id number] 2.16.8 [id number] 1980 Unknown [id number] 2.16.8 [id number] 1980 Unknown [id number] 2.16.8 [id number] 1980 Unknown [id number] [id number] [id number] 1980 Unknown [id number] 2.16.8 [id number] Unknown [facility] Social History Date Type Detail Facility Alcohol Use: Alcohol Use: ; Y es for Alcohol Use. 1 to 7 drinks per week. [facility] Current Work/Study Status Current Work/St udy Status [facility]; [facility] Tobacco use: Tobacco use: ; C urrent some day smoker. [facility]; [facility]. Male [facility]; [facility] Work Phone: Occasional tobacco smoker [facility] [employer] [facility]; [facility] Work Phone: Smoker [facility]; [facility]. Work Phone: Summary Purpose Family History No Family History Records FoundNo Family History Records FoundNo Family History Records Found Advance Directives No Advanced Directives Records FoundNo Advanced Directives Records FoundNo Advanced Directives Records Found Additional Source Comments (unrecognized sect ion and content) No Status Records FoundNo Status Records FoundNo Status Records Found INFORMATION SOURCE (unrecogn ized section and content) DATE CREATED AUTHOR AUTHOR'S ORGANIZ ATION 11/04/2023 [facility] DATE CREATED AUTHOR AUTHOR'S ORGANIZ ATION 11/12/2023 [facility] ([place]) FOR RECORDS PERTAINING TO PATIENTS WHO ARE OR HAVE BEEN ENROLLED IN A CHEMICAL DEPENDENCY/SUBSTANCEABUSE PROGRAM, SOME INFORMATION MAY BE OMITTED. This clinical summary was aggregated from multiple sources. Caution should be exercised in using it in the provision of clinical care. This summary normalizes information from multiple sources, and as a consequence, information in this document may materially change the coding, format and clinical context of patient data. In addition, data may be omitted in some cases. CLINICAL DECISIONS SHOULD BE BASED ON THE PRIMARY CLINICAL RECORDS. [facility] [employer] [facility]. provides no warranty or guarantee of the accuracy or completeness of information in this document.
[2024-01-06 07:04] VITALS: BP 121/81; PULSE 85; RESP 16; TEMP 36.4; O2SAT 100; BMI 29.3
[2024-01-06] MEDS: Lactated Ringers 1,000 ML 15 ML IV (07:08)
--- NOTE | 2024-01-06 07:28 | PCM.HP.BLA ---
History and Physical Date of Admission: 01/06/24 OFFICE VISIT Date of Service: 11/15/23 MR#: [id number] Acct: [id number] Name: JOE GARCAÍ Rep #: [id number] : 1980 Provider: Dr. Amos Beauchamp MD Age/Sex: 43/M Location: [facility] Status: Signed Intake Vital Signs 11/03/2310:18 Height 5 ft 10.08 in Intake Visit Reasons: DIVERTICULITIS 11/05 Chief Complaint: diverticulitis 11/05 Is patient in pain?: No Allergies amoxicillin Allergy (Intermediate, Verified 11/15/23 12:21) Hives Medications acetaminophen 500 mg tablet 500 mg PO Q4H PRN PRN Pain Score 1-10 #0 tabs 11/05/23 [Rx Confirmed 11/15/23] ciprofloxacin HCl 500 mg tablet (Cipro) 500 mg PO BID 10 days #20 tabs 11/05/23 [Rx Confirmed 11/15/23] metronidazole 500 mg tablet 500 mg PO Q8H 10 days #30 tabs 11/05/23 [Rx Confirmed 11/15/23] PFSH Surgical History History of right hip replacement Social History Smoking Status: Light Smoker (<10/day) alcohol intake: current alcohol intake frequency: holidays/special occasions only substance use type: does not use HPI HPI HPI: Patient is a 43-year-old male with history of colonic diverticulitis and diverticular abscess status post percutaneous drainage. He follows up from 11/10/2023 clinic visit and presents for possible drain discontinuation. He states that he has done well following her last visit and has not had any output from his drain. He denies any fevers or chills Below is recapitulated from patient's prior visit for ease of review: Patient follows up from recent hospitalization at due to 11/05/2023 and included percutaneous drainage via CT guidance of a peritoneal abscess secondary to complicated diverticulitis. Today presents with his and reports that he is overall doing well. In fact, he reports that he is returned to work without difficulty. He provides a drain log that suggests every day outside of 11/08/2023 he has had 5 mL or less drainage. He describes the output is generally light brown with no smell. He denies any fevers or chills. He continues on a full liquid diet but has had a strong appetite. He confirms that his bowels been regular and unremarkable. [facility] Musculoskeletal: Yes arthritis Gastro Gastrointestinal: Yes abdominal pain Exam Const General: cooperative and comfortable Resp Effort & Inspection: normal respiratory effort GI Other: Patient's abdomen is nondistended, soft, nontender to palpation. He has no output from his TOMASA drain and the drainage in the tubing is simply clear yellow. Assessment and Plan Assessment and Plan (1) Colonic diverticular abscess: Status: Acute Comment: This is a 43-year-old male who makes his second outpatient visit following percutaneous drain placement during inpatient stay which concluded 11/05/2023. Overall he appears continue to be doing well as an outpatient. He has just 1 more day of antibiotics. I have instructed him to then begin use of a probiotic. His drain was pulled successfully during today's visit and was well-tolerated. I have encouraged him to gradually go up on his diet?pain specific attention to incorporating protein. I have given him alarm symptoms to be on the look out for, but have stated that we will plan to begin the 6-week count down to a diagnostic colonoscopy. Plan: ? Complete antibiotic course ? Begin probiotic ? Patient continue more of a soft low residue diet with inclusion of foods such as mashed potatoes, eggs, ground lean meats,? ? Remove drain site dressing in 48 hours then begin showering ? Diagnostic colonoscopy in 6 weeks I have examined the patient and the H&P has been reviewed. There are no clinical changes since date of exam. Patient reports that he has had no further abdominal pain apart from some cramping related to his bowel prep. He confirms that he completed his prep and that his output is now clear. He states that he is given some thought to segmental colectomy for addressing his diverticular disease but is not yet decided. He denies any further questions related to procedure after a brief overview was reviewed. Therefore we will proceed to the endoscopy suite for diagnostic colonoscopy as discussed in greater detail above.
[2024-01-06 08:07] VITALS: BP 115/74; BP 121/81; PULSE 75; RESP 16; TEMP 36.6; O2SAT 99
[2024-01-06 08:10] VITALS: BP 119/86; BP 121/81; PULSE 76; RESP 16; O2SAT 100
[2024-01-06 08:15] VITALS: BP 121/81; BP 122/83; PULSE 71; RESP 16; O2SAT 100
--- NOTE | 2024-01-06 08:15 | OP.CCLET_ITS ---
01/06/2024 Jamar Roldan Md Re : Colonoscopy procedure for Alli Valderrama Jamar This procedure was performed on Saturday, January 06, 2024. My impressions and recommendations are as follows: Impressions : - Enlarged prostate found on perianal exam. - Diverticulosis in the sigmoid colon. No specimens collected. - One 5 mm, non-bleeding polyp in the sigmoid colon, removed with a hot snare. Complete resection. Partial retrieval. - The examination was otherwise normal on direct and retroflexion views. Recommendations : - Discharge patient to home (via wheelchair). - High fiber diet today. - Continue present medications. - Await pathology results. - Repeat colonoscopy date to be determined after pending pathology results are reviewed for surveillance based on pathology results. - Telephone my office for pathology results in 1 week. My findings are described in the full procedure note, which is enclosed. If I can be of further assistance, please feel free to contact me at Doctor phone number(s): , Work: . Sincerely, Amos Beauchamp MD 01/06/2024 8:14:27 AM This report has been signed electronically.
--- NOTE | 2024-01-06 08:15 | OP.COLON_ITS ---
Patient Name: Alli Clark Procedure Date: 01/06/2024 7:19 AM Date of : 1980 Age: 43 Procedure: Colonoscopy Indications: Diverticulitis Providers: Amso Beauchamp MD Referring MD: Jamar Roldan Md Medicines: See the Anesthesia note for documentation of the administered medications Patient Profile: Refer to note in patient chart for documentation of history and physical. Last Colonoscopy: none. The patient's first colonoscopy is today. Complications: No immediate complications. Estimated blood loss: Minimal. Procedure: Pre-Anesthesia Assessment: - The heart rate, respiratory rate, oxygen saturations, blood pressure, adequacy of pulmonary ventilation, and response to care were monitored throughout the procedure. After I obtained informed consent, the scope was passed under direct vision. Throughout the procedure, the patient's blood pressure, pulse, and oxygen saturations were monitored continuously. The pediatric colonoscope was introduced through the anus and advanced to the cecum, identified by the appendiceal orifice, IC valve and transillumination. The colonoscopy was performed without difficulty. The patient tolerated the procedure well. The quality of the bowel preparation was adequate to identify polyps. Scope In: 7:37:28 AM Scope Withdrawal Time 0 hours 19 minutes 5 seconds Scope Out: 8:02:20 AM Total Procedure Duration Time 0 hours 24 minutes 52 seconds Findings: The perianal exam findings include enlarged prostate. Many small-mouthed diverticula were found in the sigmoid colon. No biopsies or other specimens were collected for this exam. A 5 mm, non-bleeding polyp was found in the sigmoid colon. The polyp was semi-pedunculated. The polyp was removed with a hot snare. Resection was complete, but the polyp tissue was only partially retrieved. Estimated blood loss was minimal. The exam was otherwise without abnormality on direct and retroflexion views. Impression: - Enlarged prostate found on perianal exam. - Diverticulosis in the sigmoid colon. No specimens collected. - One 5 mm, non-bleeding polyp in the sigmoid colon, removed with a hot snare. Complete resection. Partial retrieval. - The examination was otherwise normal on direct and retroflexion views. Recommendation: - Discharge patient to home (via wheelchair). - High fiber diet today. - Continue present medications. - Await pathology results. - Repeat colonoscopy date to be determined after pending pathology results are reviewed for surveillance based on pathology results. - Telephone my office for pathology results in 1 week. Procedure Code(s): --- Professional --- 63862, Colonoscopy, flexible; with removal of tumor(s), polyp(s), or other lesion(s) by snare technique Diagnosis Code(s): --- Professional --- D12.5, Benign neoplasm of sigmoid colon K57.32, Diverticulitis of large intestine without perforation or abscess without bleeding K57.30, Diverticulosis of large intestine without perforation or abscess without bleeding CPT copyright 2021 [employer]. All rights reserved. The codes documented in this report are preliminary and upon medical coder review may be revised to meet current compliance requirements. Amos Beauchamp MD 01/06/2024 8:14:27 AM This report has been signed electronically. Number of Addenda: 0 Note Initiated On: 01/06/2024 7:19 AM
[2024-01-06 08:20] VITALS: BP 121/81; BP 121/85; PULSE 87; RESP 16; TEMP 36.6; O2SAT 99
[2024-01-06 08:31] VITALS: BP 121/81
== END 2024-01-06 08:43 | disposition home or self-care (01) ==
LOC: EN 06:40 → AC 06:41
PROVIDERS: PCP Family Medicine; Referring Provider Family Medicine; Visit Provider Surgery
PROC: 0DJD8ZZ Inspection of Lower Intestinal Tract, Via Natural or Artificial Opening Endoscopic (ICD-10-PCS; CPT 45378; principal; 2024-01-06 07:25)
DX: K57.30 Diverticulosis of large intestine without perforation or abscess without bleeding (principal); K57.32 Diverticulitis of large intestine without perforation or abscess without bleeding; F17.200 Nicotine dependence, unspecified, uncomplicated; K63.5 Polyp of colon; N40.0 Benign prostatic hyperplasia without lower urinary tract symptoms
CPT/HCPCS: 45385; 88305; J7120; J2405

== ENCOUNTER 2025-06-23 14:58 | Inpatient (IN) | payer OTHER, SELFPAY ==
[2025-06-23] VITALS (8 sets, daily range): BP systolic 119–154; BP diastolic 78–106; PULSE 92–128; RESP 18–20; TEMP 36.9–37.5; O2SAT 95–100; BMI 27.8; BMI 27.9
--- NOTE | 2025-06-23 15:35 | CT_ITS ---
PROCEDURE: ABDOMEN/PELVIS W IV CONT ONLY 06/23/2025 REASON FOR EXAM: LLQ PAIN TECHNIQUE: ABDOMEN/PELVIS W IV CONT ONLY Coronal and Sagittal reconstruction series were provided. CONTRAST: Isovue 370 VOLUME: 100 mL One or more dose reduction techniques were used (e.g., Automated exposure control, adjustment of the mA and/or kV according to patient size, use of iterative reconstruction technique. RADIATION DOSE SUMMARY: CTDlvol: 25.31 mGy DLP: 1372.09 mGycm COMPARISON: CT 11/04/2023 FINDINGS: Lung bases: Subtle patchy airspace disease in the inferior lingula and lung bases. Included heart size appears normal. Liver: Normal Gallbladder: Normal Spleen: Normal Pancreas: Normal Adrenals: Normal Kidneys: Simple cyst upper pole left kidney, requiring no follow-up, Bosniak 1 Bladder: Inflammatory stranding in the pelvis may represent cystitis. Also suggestion of mild diverticulitis either which could be primary etiology for the fat stranding seen Reproductive Organs: Enlarged prostate Bowel: Dilated fluid-filled and air-filled loops of small bowel suggesting ileus or obstruction or enteritis and colitis. Fluid-filled cecum, ascending colon. Appendix: No inflammatory process in the right lower quadrant. Lymph nodes: No significant lymphadenopathy Vasculature: Unremarkable aorta and IVC Peritoneum / Retroperitoneum: No free air, fat stranding and trace fluid at the pericolonic sigmoid colon Bones: Unremarkable CT/Abdomen/Pelvis W IV Cont ONLY IMPRESSION: Inflammatory process in the left lower quadrant with bowel wall thickening of t he sigmoid colon suggest possibility of recurrent diverticulitis. Trace fluid and fat stranding. No drainable fluid collection. Fluid-filled distended loops of small bowel indicate possible SBO or ileus, ple ase correlate clinically Subtle patchy airspace disease inferior lingula and to lesser extent lung bases , please provide clinical correlation to exclude pneumonia Reading Location[facility]
[2025-06-23 15:51] LABS: Hematocrit 42.8 % (40-54); Hemoglobin 15.5 g/dL (13.0-16.5); Immature Granulocytes Count 0.210 X10^3/uL (0.0-0.0); Mean Corp Hgb Conc 36.2 g/dL (32-36); Mean Corpuscular Volume 86.5 fL (80-94); Mean Platelet Vol. 11.3 fl (6.2-12.0); NRBC Flagged by Analyzer 0 % (0-5); POSITIVE DIFFERENTIAL YES; Platelet Count 249 K/mm3 (150-450); RBC Distribution Width CV 13.6 % (11.6-14.6); RBC Distribution Width SD 43.2 fl (35.1-43.9); Red Blood Count 4.95 M/mm3 (4.6-6.2); White Blood Count 25.7 K/mm3 (4.4-11.0)
--- NOTE | 2025-06-23 16:02 | EX.ED.DYSGE1 ---
HPI <TERRI Owens - Last Filed: 06/23/25 18:00> History of Present Illness Chief Complaint: Abd Pain Narrative Narrative: 44-year-old male with past medical history of diverticulitis with abscess presents with 3 days of left lower quadrant abdominal pain. He states it felt like prior episode of diverticulitis though he started to drink clear fluids only. He did not really have much of an appetite. Last night he vomited x 1. He took a plexus cleanse and Metamucil with Gatorade to clear out his system and has been having loose nonbloody stool. He states when he had the diverticulitis in the past Dr. Beauchamp placed the drain that was in for about 3 weeks. He had a follow-up colonoscopy that showed no damage. PFSH <TERRI Owens - Last Filed: 06/23/25 18:00> PFSH Medical History Alcohol use Arthritis History of diverticulitis Former smoker Home Medications ?Medication ?Instructions ?Recorded ?Last Taken ?Type acetaminophen 500 mg tablet 500 mg PO Q4H PRN fever or pain 06/23/25 06/23/25 History Allergy/AdvReac Type Severity Reaction Status Date / Time amoxicillin Allergy Intermediate Hives Verified 06/23/25 15:02 Surgical History Hx of tonsillectomy Hx of left knee surgery History of right hip replacement Social History Smoking Status: Former smoker alcohol intake: current alcohol intake frequency: holidays/special occasions only substance use type: does not use ROS <TERRI Owens - Last Filed: 06/23/25 18:00> ROS ED ROS Narrative Constitutional: Negative for fever, chills, malaise. GI: Positive for abdominal pain, nausea, vomiting. Negative for melena, hematochezia. : Negative for dysuria. EXAM <TERRI Owens - Last Filed: 06/23/25 18:00> Physical Exam Narrative Exam Narrative: CONST: Patient sitting in no acute distress. EYES: Normal inspection. NECK: Normal inspection. RESP: No respiratory distress, CTAB. CVS: Tachycardic with regular rhythm, no murmur, no gallop. ABD: Soft with left lower quadrant tenderness, no guarding or rebound. SKIN: Color normal, no rash, warm, dry, intact. EXTREMITIES: Normal appearance, no pedal edema. NEURO: Alert and answering questions appropriately. PSYCH: Normal affect. Const Vital Signs: 06/23/25 14:59 06/23/25 16:02 06/23/25 17:00 Temperature 99.1 F 98.4 F 98.5 F Temperature Source Oral Oral Oral Pulse Rate 128 H 103 H 92 Respiratory Rate 18 18 18 Blood Pressure 134/96 H 125/78 H 130/88 H Blood Pressure Mean 108 93 102 Pulse Ox 98 97 98 Oxygen Delivery Method Room Air Room Air Room Air 06/23/25 17:21 06/23/25 18:00 Temperature 98.5 F 98.9 F Temperature Source Temporal Pulse Rate 92 95 Respiratory Rate 18 18 Blood Pressure 130/88 H 119/82 H Blood Pressure Mean 102 94 Pulse Ox 97 95 Oxygen Delivery Method Room Air <Kentrell Solano MD - Last Filed: 06/23/25 18:26> Physical Exam Const Vital Signs: 06/23/25 14:59 06/23/25 16:02 06/23/25 17:00 Temperature 99.1 F 98.4 F 98.5 F Temperature Source Oral Oral Oral Pulse Rate 128 H 103 H 92 Respiratory Rate 18 18 18 Blood Pressure 134/96 H 125/78 H 130/88 H Blood Pressure Mean 108 93 102 Pulse Ox 98 97 98 Oxygen Delivery Method Room Air Room Air Room Air 06/23/25 17:21 06/23/25 18:00 Temperature 98.5 F 98.9 F Temperature Source Temporal Pulse Rate 92 95 Respiratory Rate 18 18 Blood Pressure 130/88 H 119/82 H Blood Pressure Mean 102 94 Pulse Ox 97 95 Oxygen Delivery Method Room Air MDM <TERRI Owens - Last Filed: 06/23/25 18:00> [facility] MDM Narrative Medical decision making narrative: Differential: Diverticulitis, abscess, perforation, kidney stone Consults: General surgery, hospitalist 44-year-old male presents with 3 days of LLQ abdominal pain. He appears well and nontoxic. He was tachycardic at 128 with otherwise normal vital signs, afebrile. He is tender in the LLQ without peritoneal signs. Labs show WBC of 25.7, lactic 1.0. Normal electrolytes, BUN 28, creatinine 1.34 (up from 0.74 two years ago). CT shows sigmoid diverticulitis without fluid collection. He was treated with IV fluids, Toradol, Cipro and Flagyl. Blood cultures were sent prior to antibiotics. The CT read also noted fluid-filled distended loops of small bowel which could be possible SBO or ileus. Clinically had 1 episode of vomiting last night but is tolerating p.o. intake today and has been having bowel movements so I do not suspect SBO. I spoke with Dr. Mejias in general surgery to make him aware but at this time there is no surgical intervention. I discussed case with the hospitalist for admission. History & Record Review Discussion w/independent historian: Patient Additional record(s) reviewed:: Prior inpatient record, Prior ED visit and Prior labs Lab Data Attestation: I reviewed the patient's lab results. Labs: Laboratory Results - last 24 hr 06/23/25 06/23/25 15:45 16:35 WBC 25.7 H RBC 4.95 Hgb 15.5 Hct 42.8 MCV 86.5 MCH 31.3 MCHC 36.2 H RDW Std Deviation 43.2 RDW Coeff of Hayden 13.6 Plt Count 249 MPV 11.3 Immature Gran % (Auto) 0.800 Neut % (Auto) 90.1 H Lymph % (Auto) 5.1 L Bosque % (Auto) 3.3 Eos % (Auto) 0.4 Baso % (Auto) 0.3 Absolute Neuts (auto) 23.2 H Absolute Lymphs (auto) 1.31 Nucleated RBC % 0 Differential Comment SCANNED Platelet Estimate ADEQUATE Sodium 134 Potassium 3.5 Chloride 96 L Carbon Dioxide 21.6 Anion Gap 16 H BUN 28 H Creatinine 1.34 H Estim Creat Clear Calc 77.72 Est GFR (MDRD) Non-Af 67 BUN/Creatinine Ratio 21.0 H Glucose 124 H Lactic Acid 1.0 Calcium 9.7 Radiography Diagnostic Testing: Clinical Impression(s) from Imaging Studies Abdomen/Pelvis CT 06/23/25 15:35 IMPRESSION: Inflammatory process in the left lower quadrant with bowel wall thickening of the sigmoid colon suggest possibility of recurrent diverticulitis. Trace fluid and fat stranding. No drainable fluid collection. Fluid-filled distended loops of small bowel indicate possible SBO or ileus, please correlate clinically Subtle patchy airspace disease inferior lingula and to lesser extent lung bases, please provide clinical correlation to exclude pneumonia Reading Location: [facility] BEDS AT [facility] <Kentrell Solano MD - Last Filed: 06/23/25 18:26> [facility] Lab Data Labs: Laboratory Results - last 24 hr 06/23/25 06/23/25 15:45 16:35 WBC 25.7 H RBC 4.95 Hgb 15.5 Hct 42.8 MCV 86.5 MCH 31.3 MCHC 36.2 H RDW Std Deviation 43.2 RDW Coeff of Hayden 13.6 Plt Count 249 MPV 11.3 Immature Gran % (Auto) 0.800 Neut % (Auto) 90.1 H Lymph % (Auto) 5.1 L Bosque % (Auto) 3.3 Eos % (Auto) 0.4 Baso % (Auto) 0.3 Absolute Neuts (auto) 23.2 H Absolute Lymphs (auto) 1.31 Nucleated RBC % 0 Differential Comment SCANNED Platelet Estimate ADEQUATE Sodium 134 Potassium 3.5 Chloride 96 L Carbon Dioxide 21.6 Anion Gap 16 H BUN 28 H Creatinine 1.34 H Estim Creat Clear Calc 77.72 Est GFR (MDRD) Non-Af 67 BUN/Creatinine Ratio 21.0 H Glucose 124 H Lactic Acid 1.0 Calcium 9.7 Radiography Diagnostic Testing: Clinical Impression(s) from Imaging Studies Abdomen/Pelvis CT 06/23/25 15:35 IMPRESSION: Inflammatory process in the left lower quadrant with bowel wall thickening of the sigmoid colon suggest possibility of recurrent diverticulitis. Trace fluid and fat stranding. No drainable fluid collection. Fluid-filled distended loops of small bowel indicate possible SBO or ileus, please correlate clinically Subtle patchy airspace disease inferior lingula and to lesser extent lung bases, please provide clinical correlation to exclude pneumonia Reading Location: [facility] 234 BEDS AT [facility] Management Discussion w/another healthcare provider: Hospitalist (Dr. Murry) and Rrts (Dr. Mejias, General Surgery) Treatment and Re-Evaluation :: Dr. Solano: I have personally performed a face to face assessment of the patient and have reviewed the JOB Note. I performed a substantive portion of the visit including all aspects of the following. My zheng findings include: History is suprapubic to left lower quadrant abdominal pain with history of diverticular abscess. Exam is afebrile. Vital signs noted. Nontoxic-appearing. Cardiovascular examination reveals positive tachycardia. Lungs clear to auscultation bilaterally. Abdomen is soft with mild tenderness to palpation in the suprapubic and left lower quadrant area, no guarding or rebound. Positive bowel sounds. Medical Decision Making: Check labs. Check CT scan. On review of the CT report there is diverticulitis but no drainable fluid collection. Given his leukocytosis and tachycardia, lactic acid is obtained and is negative. Discussed with general surgery and hospitalist. IV antibiotics. Admit. Other additions or changes: [None] Discharge Plan Triage Chief Complaint: Abd Pain ED Midlevel Provider: [place] [place] ED Provider: Kentrell Solano Dx/Rx/DC Orders Clinical Impression: Sigmoid diverticulitis, Acute kidney injury Prescriptions: No Action acetaminophen 500 mg Tablet 500 mg PO Q4H PRN (Reason: fever or pain) Primary Care Provider: Jamar Roldan Referrals: Jamar Roldan MD [Primary Care Provider] - Print Language: Icelandic
--- OUTSIDE RECORDS SUMMARY | 2025-06-23 16:03 | XMS RPT_ITS | CCD ---
Author Organization [facility] Care Team Providers Care Foamite Mixer Name Role Phone RATNA ABDUL Attending UnavailBOB Thompson Attending Unavailable Dr. Humberto Dsouza Primary Care Provider MD Xiomara Kentrell Emergency Provider [phone] Nehemias Beauchamp Attending Provider LIANNA CHAMPION, DR HUMBERTO Puga Attending Unavaildeisi [facility], [facility]IP Manning Unavailable [phone] NEHEMIAS LAMBERT DO Unavailable Unavailable JOSE LUIS DSOUZA MD Unavailable Liana Ceron RN Unavailable Unavailable HUMBERTO DSOUZA MD Unavailable Juan PEARCE MD Unavailable [phone] Madonna Maldonado Unavailable Unavailable Xavier MALDONADO MD Unavailable Erum Valle Unavailable Unavailable Fortunato WAN, Bri Unavailable Unavaila ble Unavailable Unavailable Dr. Nehemias Beauchamp Admit Provider [phone] Nehemias Beauchamp Other Provider Dr. Alcides Diaz Attending Provider Dr. Humberto Dsouza Referring Provider [phone] Nehemias Beauchamp Consulting Unavailable Nehemias Beauchamp Attending Unavailable Humberto Dsouza Referring Unavailable Humberto Dsouza Primary Care Unavailable Humberto Dsouza Primary Care Unavailable Nehemias Beauchamp Attending Unavailable Nehemias Beauchamp Admitting Unavailable Nehemias Beauchamp Consulting Unavailable Humberto Dsouza Primary Care Unavailable Nehemias Beauchamp Attending Unavailable Alcides Diaz Attending Unavailable Humberto Dsouza Primary Care Unavailable LiannaHumberto Referring Unavailable Nehemias Beauchamp Attending Unavailable Humberto Dsouza Primary Care Unavailable DsouzaHumberto brandt Referring Unavailable Nehemias Beauchamp Attending Unavailable DsouzaHumberto Primary Care Unavailable LiannaHumberto Referring Unavailable Nehemias Beauchamp Attending Unavailable Nehemias Beauchamp Admitting Unavailable LiannaHumberto Primary Care Unavailable Nehemias Beauchamp Attending Unavailable EMORY ATKINSON DO Attending Unavailable CSERNYIK, EMORY DO Primary Care Unavailable CSERNYIK, EMORY DO Admitting Unavailable Allergies Allergy Classification Reported Allergen(s) Allergy Type Date of Onset Reaction(s) Facility (6 sources) Amoxicillin Drug Allergy 11-02-2023 [place] (1 source) Amoxicillin Drug Allergy 01-06-2024 [facility] Repository Medications Current Medications Medication Drug Class(es) Dates Sig (Normalized) Sig (Original) acetaminophen 500 mg oral tablet (2 sources) Start: 11-05-2023 take 500 mg by mouth every four hours as needed Acetaminophen Active 500 MG PO EVERY 4 HOURS NEEDED 0 November 05, 2023 12:00am ciprofloxacin 500 mg oral tablet (1 source) Quinolone Antimicrobial Start: 11-05-2023 take 1 tablet by mouth twice daily Ciprofloxacin Hcl (Cipro) 500 mg tablet Active 500 MG PO TWICE A DAY 20 November 05, 2023 12:00am metroNIDAZOLE 500 mg oral tablet (1 source) Nitroimidazole Antimicrobial Start: 11-05-2023 take 500 mg by mouth every eight hours Metronidazole Active 500 MG PO Q8H 30 November 05, 2023 12:00am [employer] (2 sources) Start: 12-30-2023 [employer] Active 12 OZ PO DAILY December 30, 2023 12:00am Start: 12-30-2023 take 1 tablet by luis alberto th twice daily [employer] Active 1 TABLET PO TWICE A DAY December 30, 2023 12:00am Completed/Discontinued Medications Medication Drug Class(es) Dates Sig (Normalized) Sig (Original) acyclovir 800 mg oral tablet (3 sources) Herpesvirus Nucleoside Analog DNA Polymerase Inhibitor, Herpes Simplex Virus Nucleoside Analog DNA Polymerase Inhibitor, Herpes Zoster Virus Nucleoside Analog DNA Polymerase Inhibitor Start: 06-12-2012 End: 02-26-2014 ACYCLOVIR, 800MG (Oral Tablet) ; 1 Tablet four-five times daily (every four hours) for 0 days Quantity: 30 {Tablet} Refills: 1 Ordered: 26-Feb-2014 Start: 12-Jun-2012 End: 26-Feb-2014 Status: Inactive levothyroxine sodium 0.088 mg oral tablet (3 sources) l-Thyroxine Start: 04-02-2014 End: 09-02-2017 take 1 tablet by mouth once daily Levothyroxine Sodium 88 MCG Oral Tablet ; 1 (one) Tablet daily for 30 days Quantity: 30 {Tablet} Refills: 2 Ordered: 02-Sep-2017 Madonna Maldonado Start: 02-Apr-2014 End: 02-Sep-2017 Status: Inactive predniSONE 10 mg oral tablet (3 sources) Start: 03-19-2014 End: 03-31-2014 PREDNISONE (NELY), 10MG (Oral Tablet) ; 1 (one) Tablet D 1-3=6tab daily D 4-6=4tab D 7-9=2tab [id number] for 12 days Quantity: 40 {Tablet} Refills: 0 Ordered: 01-Apr-2014 MD Juan PEARCE Start: 19-Mar-2014 End: 31-Mar-2014 Status: Inactive Comments: Days 1,2,3 = 6 tabs daily; Days 4,5,6 = 4 tabs daily; Days 7,8,9 = 2 tabs daily; Days 10,11,12 = 1 tab daily; Take with food. May take each days medication at one time Comment on above: Days 1,2,3 = 6 tabs daily; Days 4,5,6 = 4 tabs daily; Days 7,8,9 = 2 tabs daily; Days 10,11,12 = 1 tab daily; Take with food. May take each days medication at one time sulfamethoxazole 800 mg / trimethoprim 160 mg oral tablet (3 sources) Dihydrofolate Reductase Inhibitor Antibacterial, Sulfonamide Antimicrobial Start: 09-09-2017 End: 09-16-2017 take 1 tablet by mouth twice daily Bactrim DS 800-160 MG Oral Tablet ; 1 (one) Tablet Tablet two times daily for 7 days Quantity: 14 {Tablet} Refills: 0 Ordered: 09-Sep-2017 MD Xavier MALDONADO Start: 09-Sep-2017 End: 16-Sep-2017 Status: Inactive Problems Active Problems Problem Classification Problem Date Documented Date Episodic/Chronic Abdominal pain (8 sources) Right lower quadrant pain; Translations: [Right lower quadrant pain] Onset: 10-31-2023 Episodic Administrative/social admission (9 sources) Patient encounter status; Translations: [Counseling, unspecified] 10-31-2023 Episodic Allergic reactions (12 sources) Urticaria; Translations: [Urticaria, unspecified] 03-19-2014 Episodic Cardiac dysrhythmias (9 sources) Tachycardia; Translations: [Tachycardia, unspecified] 04-01-2014 Episodic Diseases of white blood cells (6 sources) Leukocytosis; Translations: [Elevated white blood cell count, unspecified] 11-02-2023 Chronic Diverticulosis and diverticulitis (17 sources) Diverticulitis of sigmoid colon; Translations: [Diverticulitis of large intestine without perforation or abscess without bleeding] Onset: 11-14-2023 11-02-2023 Chronic Essential hypertension (9 sources) Hypertensive disorder; Translations: [Essential (primary) hypertension] 04-01-2014 Chronic Fluid and electrolyte disorders (6 sources) Hyponatremia; Translations: [Hypo-osmolality and hyponatremia] 11-02-2023 Episodic Osteoarthritis (4 sources) Osteoarthritis of knee, unspecified; Translations: [Osteoarthritis of hip, unspecified] Onset: 11-06-2018 Chronic Other non-traumatic joint disorders (3 sources) Pain in right shoulder; Translations: [Pain in joint, shoulder region] 06-12-2012 Episodic Other screening for suspected conditions (not mental disorders or infectious disease) (9 sources) Screening status; Translations: [Encounter for screening for lipoid disorders] 04-01-2014 Episodic Other skin disorders (6 sources) Skin tag; Translations: [Other hypertrophic disorders of the skin] 10-08-2021 Episodic Comment on above: LLE Skin and subcutaneous tissue infections (9 sources) Abscess; Translations: [Cutaneous abscess, unspecified] 09-09-2017 Episodic Substance-related disorders (2 sources) Nicotine dependence, cigarettes, uncomplicated; Translations: [Nicotine dependence, cigarettes, uncomplicated] Onset: 11-06-2018 Chronic Thyroid disorders (6 sources) Hypothyroidism; Translations: [Hypothyroidism, unspecified] 04-02-2014 Chronic Unclassified (3 sources) !Patient notification of lab results 1 - [facility]. The test(s) that you had done were/was blood work (The tests showed that the thyroid is underactive. You should start medication to help the thyroid function normally. Please start levothyroxine 88 mcg daily and follow up in 2-3 weeks. This prescription has been sent to your pharmacy. Also, the LDL (bad cholesterol) was 133 with a goal of 130. The triglycerides were 167 with a goal of 150. Continue to watch the diet and decrease fats and cholesterol in the diet). You should call our office to schedule an appointment for a repeat visit, to schedule an appointment for additional testing and if you have any questions. Please follow up as scheduled. 04-02-2014 Unclassified (3 sources) LAB DRAW - The labs drawn today include: CBC, CMP, Lipid Panel and TSH. The lab was drawn from the left antecubital vein. The lab was ordered by Dr. Pearce. 04-01-2014 Viral infection (3 sources) Herpes zoster without mention of complication 06-12-2012 Episodic Past or Other Problems Problem Classification Problem Date Documented Da te Episodic/Chronic Unclassified (3 sources) !Patient notification of lab results - Dr. Dsouza (Discussed with pt. on phone that there is likely an abscess from the diverticulitis and he will need to be admitted to the hospital for IV antibiotics. Pt. decided he will go to [facility].). You should call our office if you have any questions. 11-02-2023 Unclassified (3 sources) Abdominal Pain, Male - Symptoms include abdominal pain and nausea, while symptoms do not include vomiting or diarrhea. The pain is located in the entire abdomen. Onset was 1 week(s) ago. Associated symptoms do not include fever, jaundice, bloody stool or dysuria. Note for Abdominal pain: C/O bloating and not able to pass stool. Is using Milk of Magnesia and stool softeners. 11-02-2023 Unclassified (3 sources) Skin lesion - The skin lesion appeared gradually and has been occurring for years. The skin lesion is located on the lower extremity (right). 10-08-2021 Unclassified (3 sources) recheck - other illness (abscess on upper back/neck area.). Note for recheck: finishing bactrim 09-09-2017 Unclassified (3 sources) Cyst - Symptoms include a single cyst. Cyst(s) are located on the neck. Initial cyst onset was year(s) ago. Cyst changes include rapidly enlarging and becoming more painful. The patient is not currently being treated for this problem. Previous presentation included tender lesion(s). 09-02-2017 Unclassified (3 sources) HYPERTENSION - Note for HYPERTENSION: still has rash at times. Here for exam. 03-19-2014 Unclassified (3 sources) Rash - The rash has been occurring in an intermittent pattern for 2 weeks. The rash is characterized as red and raised above the skin. The rash was first seen on the trunk and the upper extremity. There has been associated itching, while there has been no pain. Note for Rash: Here for exam. 02-26-2014 Unclassified (3 sources) Rash - The rash is characterized as red. The rash was first seen on the back (right mid back). Note for Rash: area is painful. 06-12-2012 Results Test Name Value Interpretation Reference Range Facility Colonoscopy Reporton 024 Colonoscopy Report [facility] Medical Records Department [address] [place] [id number] Colonoscopy Report MR#: [id number] Acct: [id number] Name: JOE CLARK Rep #: [id number] : 1980 43 From: Nehemias Beauchamp MD PCP: Dr. Humberto Dsouza MD Status:[facility] Patient Name: Joe Clark Procedure Date: 01/06/2024 7:19 AM Date of : 1980 Age: 43 Procedure: Colonoscopy Indications: Diverticulitis Providers: Nehemias Beauchamp MD Referring MD: Humberto Dsouza Md Medicines: See the Anesthesia note for documentation of the administered medications Patient Profile: Refer to note in patient chart for documentation of history and physical. Last Colonoscopy: none. The patient's first colonoscopy is today. Complications: No immediate complications. Estimated blood loss: Minimal. Procedure: Pre-Anesthesia Assessment: - The heart rate, respiratory rate, oxygen saturations, blood pressure, adequacy of pulmonary ventilation, and response to care were monitored throughout the procedure. After I obtained informed consent, the scope was passed under direct vision. Throughout the procedure, the patient's blood pressure, pulse, and oxygen saturations were monitored continuously. The pediatric colonoscope was introduced through the anus and advanced to the cecum, identified by the appendiceal orifice, IC valve and transillumination. The colonoscopy was performed without difficulty. The patient tolerated the procedure well. The quality of the bowel preparation was adequate to identify polyps. Scope In: 7:37:28 AM Scope Withdrawal Time 0 hours 19 minutes 5 seconds Scope Out: 8:02:20 AM Total Procedure Duration Time 0 hours 24 minutes 52 seconds Findings: The perianal exam findings include enlarged prostate. Many small-mouthed diverticula were found in the sigmoid colon. No biopsies or other specimens were collected for this exam. A 5 mm, non-bleeding polyp was found in the sigmoid colon. The polyp was semi-pedunculated. The polyp was removed with a hot snare. Resection was complete, but the polyp tissue was only partially retrieved. Estimated blood loss was minimal. The exam was otherwise without abnormality on direct and retroflexion views. Impression: - Enlarged prostate found on perianal exam. - Diverticulosis in the sigmoid colon. No specimens collected. - One 5 mm, non-bleeding polyp in the sigmoid colon, removed with a hot snare. Complete resection. Partial retrieval. - The examination was otherwise normal on direct and retroflexion views. Recommendation: - Discharge patient to home (via wheelchair). - High fiber diet today. - Continue present medications. - Await pathology results. - Repeat colonoscopy date to be determined after pending pathology results are reviewed for surveillance based on pathology results. - Telephone my office for pathology results in 1 week. Procedure Code(s): --- Professional --- 59936, Colonoscopy, flexible; with removal of tumor(s), polyp(s), or other lesion(s) by snare technique Diagnosis Code(s): --- Professional --- D12.5, Benign neoplasm of sigmoid colon K57.32, Diverticulitis of large intestine without perforation or abscess without bleeding K57.30, Diverticulosis of large intestine without perforation or abscess without bleeding CPT copyright 2021 [employer]. All rights reserved. The codes documented in this report are preliminary and upon tomahawk weapon system operator review may be revised to meet current compliance requirements. Nehemias Beauchamp MD 01/06/2024 8:14:27 AM This report has been signed electronically. Number of Addenda: 0 Note Initiated On: 01/06/2024 7:19 AM 01/06/24 0815 Date Nehemias Beauchamp MD Cosigner Signature: Date (if indicated) CC: Dr. Nehemias Beauchamp MD; Dr. Humberto Dsouza MD Date Dictated: 01/06/24718 Date Transcribed: Hand Candy Cutter: RITCHIE Garrison [facility] No Panel Informationon 01-06 [facility]; [facility] Novav[facility]; [facility] Nov[facility] Surgery Specimen Level [place] 01-06-2024 Surgery Specimen Level IV Patient Age/Sex Location Account Attending Physician JOE CLARK 43/M EN [id number] Dr. Nehemias Beauchamp MD Specimen: [id number] Received: 01/06/24 Status: [place] Che Num: [id number] Spec Type: COLON BX Subm Dr: Dr. Nehemias Beauchamp MD HEADER OPERATION: Colonoscopy, polypectomy PRE-OP DIAGNOSIS: Colonic diverticular abscess TISSUE SUBMITTED: Sigmoid colon polyp MICROSCOPIC DIAGNOSIS Sigmoid colon polyp, biopsy: Polypoid fragments of benign colonic mucosa. See comment. AM:ashley 01/10/2024 COMMENT Thermal artifact is present. MICROSCOPIC DESCRIPTION Slides are reviewed. GROSS DESCRIPTION Received in fixative is one container labeled with the patient's name and designated sigmoid colon polyp. The specimen consists of multiple irregular fragments of light vu soft tissue that in aggregate measure 1.0 x 0.3 x 0.1 cm. The specimen is totally submitted in one cassette. / SJ:ashley 01/09/2024 TC:5 CPT: 35339 Patient Age/Sex Location Account Attending Physician JOE CLARK 43/M EN [id number] Dr. Nehemias Beauchamp MD Signed (signature on file) Dr. Naga Gruber DO 01/10/24 1216 Normal [facility] Comment on above: Performed By: #### P KELI ####[facility] [id number] [place], [place], [id number] No Panel Informationon 11-22 [facility], [facility]. Surgery Visit Reporton 11-15 Surgery Visit Report [facility] [address] [place] [address] OFFICE VISIT Date of Service: 11/15/23 MR#: [id number] Acct: [id number] Name: JOE CLARK Rep #: [id number] : 1980 Provider: Dr. Nehemias garcia MD Age/Sex: 43/M Location: [facility] Status: Signed Intake Vital Signs 11/03/23 10:18 Height 5 ft 10.08 in Intake Visit Reasons: DIVERTICULITIS 11/05 Chief Complaint: diverticulitis 11/05 Is patient in pain?: No Allergies amoxicillin Allergy (Intermediate, Verified 11/15/23 12:21) Hives Medications acetaminophen 500 mg tablet 500 mg PO Q4H PRN PRN Pain Score 1-10 #0 tabs 11/05/23 [Rx Confirmed 11/15/23] ciprofloxacin HCl 500 mg tablet (Cipro) 500 mg PO BID 10 days #20 tabs 11/05/23 [Rx Confirmed 11/15/23] metronidazole 500 mg tablet 500 mg PO Q8H 10 days #30 tabs 11/05/23 [Rx Confirmed 11/15/23] PFSH Surgical History History of right hip replacement Social History Smoking Status: Light Smoker (<10/day) alcohol intake: current alcohol intake frequency: holidays/special occasions only substance use type: does not use HPI HPI HPI: Patient is a 43-year-old male with history of colonic diverticulitis and diverticular abscess status post percutaneous drainage. He follows up from 11/10/2023 clinic visit and presents for possible drain discontinuation. He states that he has done well following her last visit and has not had any output from his drain. He denies any fevers or chills Below is recapitulated from patient's prior visit for ease of review: Patient follows up from recent hospitalization at due to 11/05/2023 and included percutaneous drainage via CT guidance of a peritoneal abscess secondary to complicated diverticulitis. Today presents with his and reports that he is overall doing well. In fact, he reports that he is returned to work without difficulty. He provides a drain log that suggests every day outside of 2023 he has had 5 mL or less drainage. He describes the output is generally light brown with no smell. He denies any fevers or chills. He continues on a full liquid diet but has had a strong appetite. He confirms that his bowels been regular and unremarkable. [facility] Musculoskeletal: Yes arthritis Gastro Gastrointestinal: Yes abdominal pain Exam Const General: cooperative and comfortable Resp Effort Inspection: normal respiratory effort GI Other: Patient's abdomen is nondistended, soft, nontender to palpation. He has no output from his TOMASA drain and the drainage in the tubing is simply clear yellow. Assessment and Plan Assessment and Plan (1) Colonic diverticular abscess: Status: Acute Comment: This is a 43-year-old male who makes his second outpatient visit following percutaneous drain placement during inpatient stay which concluded 11/05/2023. Overall he appears continue to be doing well as an outpatient. He has just 1 more day of antibiotics. I have instructed him to then begin use of a probiotic. His drain was pulled successfully during today's visit and was well-tolerated. I have encouraged him to gradually go up on his diet???pain specific attention to incorporating protein. I have given him alarm symptoms to be on the look out for, but have stated that we will plan to begin the 6-week count down to a diagnostic colonoscopy. Plan: ??? Complete antibiotic course ??? Begin probiotic ??? Patient continue more of a soft low residue diet with inclusion of foods such as mashed potatoes, eggs, ground lean meats,? Remove drain site dressing in 48 hours then begin showering ??? Diagnostic colonoscopy in 6 weeks Coding Level of Care Code Off vis,est,level 3 Diagnoses Colonic diverticular abscess K57.20 11/15/23 1724 Date Nehemias Beauchamp MD [facility] Signature: Date (if applicable) CC: Normal [facility] Surgery Visit Reporton 11-10 Surgery Visit Report [facility] [address] [place] [address] OFFICE VISIT Date of Service: 11/10/23 MR#: [id number] Acct: [id number] Name: JOE CLARK Rep #: [id number] : 1980 Provider: Dr. Nehemias garcia MD Age/Sex: 43/M Location: [facility] Status: Signed Intake Vital Signs 11/03/23 10:18 Height 5 ft 10.08 in Intake Visit Reasons: DIVERTICULITIS 11/05 Chief Complaint: diverticulitis 11/05 Is patient in pain?: No Allergies amoxicillin Allergy (Intermediate, Verified 11/10/23 15:42) Hives Medications acetaminophen 500 mg tablet 500 mg PO Q4H PRN PRN Pain Score 1-10 #0 tabs 11/05/23 [Rx Confirmed 11/10/23] ciprofloxacin HCl 500 mg tablet (Cipro) 500 mg PO BID 10 days #20 tabs 11/05/23 [Rx Confirmed 11/10/23] metronidazole 500 mg tablet 500 mg PO Q8H 10 days #30 tabs 11/05/23 [Rx Confirmed 11/10/23] PFSH Surgical History History of right hip replacement Social History (Updated 11/10/23 @ 15:41 by Kylee Dominguez LPN) Smoking Status: Light Smoker (<10/day) alcohol intake: current alcohol intake frequency: holidays/special occasions only substance use type: does not use HPI HPI HPI: Patient follows up from recent hospitalization at due to 11/05/2023 and included percutaneous drainage via CT guidance of a peritoneal abscess secondary to complicated diverticulitis. Today presents with his and reports that he is overall doing well. In fact, he reports that he is returned to work without difficulty. He provides a drain log that suggests every day outside of 2023 he has had 5 mL or less drainage. He describes the output is generally light brown with no smell. He denies any fevers or chills. He continues on a full liquid diet but has had a strong appetite. He confirms that his bowels been regular and unremarkable. [facility] Musculoskeletal: Yes arthritis Gastro Gastrointestinal: Yes abdominal pain Exam Const General: cooperative, healthy appearing and no acute distress Orientation: alert, awake and oriented x3 Resp Effort Inspection: normal respiratory effort GI Other: Percutaneous drain remains in place. There is brown???almost feculent???appearing drainage in patient's drain tubing and in the bulb. There also appears to be partial occlusion with some exudative material of the drain tubing. Patient's abdomen is nondistended, soft, and nontender to palpation Assessment and Plan Assessment and Plan (1) Colonic diverticular abscess: Status: Acute Comment: This is a 43-year-old male who makes his first outpatient visit following percutaneous drain placement during inpatient stay which concluded 11/05/2023. Overall he appears to be doing well as an outpatient. He remains on antibiotics and is continuing a dietary restriction. I am encouraged by his clinical exam, however, his output has a dark brown appearance and part of the drain tubing appeared partially obstructed with exudative material. This was cleared via his three-way stopcock using injectable saline during today's visit. I have shared with Mr. Clark and his that I am reluctant to pull his drain given the appearance and character of the output he presently has and his drain tubing. Ideally this would appear more serous in character. Therefore, I am recommending continuing the drain for another 5 days recording the outputs and if the output remains minimal and the character changes favorably we will plan to discontinue the drain. At that time we would then begin a 6-week count towards proceeding with a diagnostic colonoscopy. Plan: ??? Continue drain and daily outputs ??? Complete antibiotic course ??? Patient okay to begin more of a soft low residue diet with inclusion of foods such as mashed potatoes, eggs, ground lean meats,? Follow-up office visit 11/15/2023 Coding Level of Care Code Off vis,est,level 3 Diagnoses Colonic diverticular abscess K57.20 11/10/23 1723 Date Nehemias Beauchamp MD Cosigner Signature: Date (if applicable) CC: Normal [facility] Culture, Anaerobic Any Sourc sneha 11-09-2023 CUAN #1 Studies Have Confirmed That B. Fragilis Group are Routinely Susceptible to: Metronidazole, Piperacillin/Tazobac macias, Amoxicillin/Clavulan ic acid, and Ertapenem. They are showing an increased RESISTANCE to Penicillin, Clindamycin and Moxifloxacin. Bacteria Spec Anaerobe Cult #2 PREVIOUSLY NAMED ACTINOMYCES TURICENSIS. Bacteria Spec Anaerobe Cult Copy of report sent to Infection Control Printer [id number] 11/09/23 0949 JPIELINDSAY. Bacteroides caccae Beta Lactamase-Reportable Positive Schaalia turicensis Normal [facility] Comment on above: Performed By: #### M 100.2000, M100.3000, M100.4001 ####[facility] [address] [place], [place], [address] CBC W/Diff, Automatedon 10-21 PATH REV Reviewed [facility] Comment on above: Result Comment: Neut rophilic leukocytosis with left shift. Clinical correlation necessary. Taj Jimenez M.D. 11/07/23 AMENDED REPORT 11/07/23 1324 PATH REV previously reported as: March foll Performed By: #### L 501.5200, L500.2500, L100.0100, L501.2300 #### [facility] [address] [place], [address] PATH REV Reviewed Normal [facility] Comment on above: Result Comment: Neut rophilic leukocytosis with left shift. Clinical correlation necessary. Taj Jimenez M.D. 11/07/23 AMENDED REPORT 11/07/23 1318 PATH REV previously reported as: March foll Performed By: #### L 100.0100, L501.2300, L500.2500, L501.5200 ####[facility] [address] [place], [address] Wound Cultureon 11-07-2023 WC Escherichia coli Amount Growth Rare Streptococcus sanguinis Amount Growth 1+ Escherichia coli: REACTION Ampicillin Islt LUZ >=32 R Ampicillin+Sulbac Islt LUZ 16 I ceFAZolin Islt LUZ <=4 S Cefepime Islt LUZ <=0.12 S cefTRIAXone Islt LUZ <=0.25 S Ciprofloxacin Islt LUZ <=0.25 S Ertapenem Islt LUZ <=0.12 S B-Lactamase Extended Susc Islt NEG Gentamicin Islt LUZ <=1 S Imipenem Islt LUZ <=0.25 S levoFLOXacin Islt LUZ <=0.12 S Pip+Tazo Islt LUZ <=4 S Tobramycin Islt LUZ <=1 S TMP SMX Islt LUZ <=20 S Streptococcus sanguinis: REACTION Ampicillin Islt LUZ <=0.25 S Penicillin G Islt LUZ <=0.06 S Cefotaxime Islt LUZ <=0.12 S cefTRIAXone Islt LUZ 0.25 S Erythromycin Islt LUZ <=0.12 S Vancomycin Islt LUZ 0.5 S Normal [facility] Comment on above: Performed By: #### M 100.2000, M100.3000, M100.4001 ####[facility] [address] [place], [address] Basic Metabolic Profile (BMP )on 11-06-2023 BUN Normal - [facility] Comment on above: Result Comment: Canc elled via OM: Order cancelled - Patient discharged Performed By: #### L 100.0100, L500.2500 ####[facility] [address] [place], [address] BUN/CRE Normal - [facility] Comment on above: Result Comment: Canc elled via OM: Order cancelled - Patient discharged Performed By: #### L 100.0100, L500.2500 ####[facility] [address] [place], [address] CA,Total Normal 8.5-10.1 [facility] Comment on above: Result Comment: Canc elled via OM: Order cancelled - Patient discharged Performed By: #### L 100.0100, L500.2500 ####[facility] [address] [place], [address] CL Normal 98-107 [facility] Comment on above: Result Comment: Canc elled via OM: Order cancelled - Patient discharged Performed By: #### L 100.0100, L500.2500 ####[facility] [address] [place], [address] CO2 Normal 21.0-32.0 [facility] Comment on above: Result Comment: Canc elled via OM: Order cancelled - Patient discharged Performed By: #### L 100.0100, L500.2500 ####[facility] [address] [place], [address] CREAT,SERUM Normal 0.70-1.30 [facility] Comment on above: Result Comment: Canc elled via OM: Order cancelled - Patient discharged Performed By: #### L 100.0100, L500.2500 ####[facility] [address] [place], [address] EST GFR Normal >60 [facility] Comment on above: Result Comment: Canc elled via OM: Order cancelled - Patient discharged Performed By: #### L 100.0100, L500.2500 ####[facility] [address] [place], [address] EST GFR - AA Normal >60 [facility] Comment on above: Result Comment: Canc elled via OM: Order cancelled - Patient discharged Performed By: #### L 100.0100, L500.2500 ####[facility] [address] [place], [address] GAP Normal 5-15 [facility] Comment on above: Result Comment: Canc elled via OM: Order cancelled - Patient discharged Performed By: #### L 100.0100, L500.2500 ####[facility] [address] [place], [address] GLU Normal 74-106 [facility] Comment on above: Result Comment: Canc elled via OM: Order cancelled - Patient discharged Performed By: #### L 100.0100, L500.2500 ####[facility] [address] [place], [address] Potassium Normal 3.5-5.1 [facility] Comment on above: Result Comment: Canc elled via OM: Order cancelled - Patient discharged Performed By: #### L 100.0100, L500.2500 ####[facility] [address] [place], [address] Basic Metabolic Profile (BMP) Normal 136-145 [facility] Comment on above: Result Comment: Canc elled via OM: Order cancelled - Patient discharged Performed By: #### L 100.0100, L500.2500 ####[facility] [address] [place], [address] CBC W/Diff, Automatedon 12- Absolute Neut Normal 2.0-7.7 [facility] Comment on above: Result Comment: Canc elled via OM: Order cancelled - Patient discharged Performed By: #### L 100.0100, L500.2500 ####[facility] [address] [place], [address] HCT Normal 40-54 [facility] Comment on above: Result Comment: Canc elled via OM: Order cancelled - Patient discharged Performed By: #### L 100.0100, L500.2500 ####[facility] [address] [place], [address] HGB Normal 13.0-16.5 [facility] Comment on above: Result Comment: Canc elled via OM: Order cancelled - Patient discharged Performed By: #### L 100.0100, L500.2500 ####[facility] [address] [place], [address] MCH Normal 27.0-32.0 [facility] Comment on above: Result Comment: Canc elled via OM: Order cancelled - Patient discharged Performed By: #### L 100.0100, L500.2500 ####[facility] [address] [place], [address] MCHC Normal 32-36 [facility] Comment on above: Result Comment: Canc elled via OM: Order cancelled - Patient discharged Performed By: #### L 100.0100, L500.2500 ####[facility] [address] [place], [address] MCV Normal 80-94 [facility] Comment on above: Result Comment: Canc elled via OM: Order cancelled - Patient discharged Performed By: #### L 100.0100, L500.2500 ####[facility] [address] [place], [address] NEUT% Normal 47-70 [facility] Comment on above: Result Comment: Canc elled via OM: Order cancelled - Patient discharged Performed By: #### L 100.0100, L500.2500 ####[facility] [address] [place], [address] PLT Normal 150-450 [facility] Comment on above: Result Comment: Canc elled via OM: Order cancelled - Patient discharged Performed By: #### L 100.0100, L500.2500 ####[facility] [address] [place], [address] RBC Normal 4.6-6.2 [facility] Comment on above: Result Comment: Canc elled via OM: Order cancelled - Patient discharged Performed By: #### L 100.0100, L500.2500 ####[facility] [address] [place], [address] RDW CV Normal 11.6-14.6 [facility] Comment on above: Result Comment: Canc elled via OM: Order cancelled - Patient discharged Performed By: #### L 100.0100, L500.2500 ####[facility] [address] [place], [address] RDW SD Normal 35.1-43.9 [facility] Comment on above: Result Comment: Canc elled via OM: Order cancelled - Patient discharged Performed By: #### L 100.0100, L500.2500 ####[facility] [address] [place], [address] WBC Normal 4.4-11.0 [facility] Comment on above: Result Comment: Canc elled via OM: Order cancelled - Patient discharged Performed By: #### L 100.0100, L500.2500 ####[facility] [address] [place], [address] Absolute lymphocyte countOrd ered By: Nehemias Beauchamp on 11-05-2023 Lymphocytes Auto (Unsp spec) [#/Vol] 1.62 10*3/uL 0.83-4.51 [facility] Basic Metabolic Profile (BMP )on 11-05-2023 BUN/CRE 9.5 RATIO Low 10-20 [facility] Comment on above: Performed By: #### L 501.5200, L500.2500, L100.0100, L501.2300 #### [facility] [address] [place], [address] CA,Total 8.2 mg/dL Low 8.5-10.1 [facility] Comment on above: Performed By: #### L 501.5200, L500.2500, L100.0100, L501.2300 #### [facility] [address] [place], [address] Chloride [Moles/Vol] 103 mmol/L Normal 98-107 [facility] Comment on above: Performed By: #### L 501.5200, L500.2500, L100.0100, L501.2300 #### [facility] [address] [place], [address] CO2 [Moles/Vol] 27.0 mmol/L Normal 21.0-32.0 [facility] Comment on above: Performed By: #### L 501.5200, L500.2500, L100.0100, L501.2300 #### [facility] [address] [place], [address] Creatinine [Mass/Vol] 0.74 mg/dL Normal 0.70-1.30 [facility] Comment on above: Result Comment: The validity of the calculated GFR GFRAA in patients over 70 years has not been determined. Clinical correlation is essential. Performed By: #### L 501.5200, L500.2500, L100.0100, L501.2300 #### [facility] [address] [place], [address] ECRCL 132.90 ml/min Normal [facility] Comment on above: Performed By: #### L 501.5200, L500.2500, L100.0100, L501.2300 #### [facility] [address] [place], [address] EST GFR - AA 148 mL/min Normal >60 [facility] Comment on above: Result Comment: Afri can [place] GFR Calc Performed By: #### L 501.5200, L500.2500, L100.0100, L501.2300 #### [facility] [address] [place], [address] GAP 5 Normal 5-15 [facility] Comment on above: Performed By: #### L 501.5200, L500.2500, L100.0100, L501.2300 #### [facility] [address] [place], [address] GFR/1.73 sq M.predicted among non-blacks MDRD (S/P/Bld) [Vol rate/Area] 122 mL/min/{1.73_m2} Normal >60 [facility] Comment on above: Result Comment: Non- GFR Calc Performed By: #### L 501.5200, L500.2500, L100.0100, L501.2300 #### [facility] [address] [place], [address] Glucose [Mass/Vol] 87 mg/dL Normal 74-106 [facility] Comment on above: Performed By: #### L 501.5200, L500.2500, L100.0100, L501.2300 #### [facility] [address] [place], [address] Potassium [Moles/Vol] 3.4 mmol/L Low 3.5-5.1 [facility] Comment on above: Performed By: #### L 501.5200, L500.2500, L100.0100, L501.2300 #### [facility] [address] [place], [address] Sodium [Moles/Vol] 135 mmol/L Low 136-145 [facility] Comment on above: Performed By: #### L 501.5200, L500.2500, L100.0100, L501.2300 #### [facility] [address] [place], [address] Urea nitrogen [Mass/Vol] 7 mg/dL Normal 7-18 [facility] Comment on above: Performed By: #### L 501.5200, L500.2500, L100.0100, L501.2300 #### [facility] [address] [place], [address] Basophil percentageOrdered B y: Nehemias Beauchamp on 11-05-2023 Basophil percentage Not Reportable [facility] Basophil percentage 2.9 mg/dL 2.5-4.9 [facility] Chloride [Moles/Vol] 103 mmol/L 98-107 [facility] Glucose [Mass/Vol] 87 mg/dL 74-106 [facility] Neutrophils (Bld) [#/Vol] 14.9 10*3/uL 2.0-7.7 [facility] Potassium [Moles/Vol] 3.4 mmol/L 3.5-5.1 [facility] Sodium [Moles/Vol] 135 mmol/L 136-145 [facility] WBC (Bld) [#/Vol] 18.0 10*3/uL 4.4-11.0 [facility] Blood band neutrophil count as percentage of total leukocytesOrdered By: Nehemias Beauchamp on 11-05-2023 Band form neutrophils/100 WBC (Bld) 3 % 0-5 [facility] Blood erythrocytes count (nu mber/volume)Ordered By: Nehemias Beauchamp on 11-05-2023 RBC (Bld) [#/Vol] 4.78 10*6/uL 4.6-6.2 [facility] Blood hemoglobin measurement (mass/volume)Ordered By: Nehemias Beauchamp on 11-05-2023 Hemoglobin (Bld) [Mass/Vol] 14.5 g/dL 13.0-16.5 [facility] Blood lymphocytes/100 leukoc ytesOrdered By: Nehemias Beauchamp on 11-05-2023 Lymphocytes/100 WBC (Bld) 9 % 19-41 [facility] Blood monocytes/100 leukocyt esOrdered By: Nehemias Beauchamp on 11-05-2023 Monocytes/100 WBC (Bld) 5 % 0-10 [facility] Blood platelet adequacy dete ction by light microscopyOrdered By: Nehemias Beauchamp on 11-05-2023 Platelets LM Ql (Bld) ADEQUATE ADEQ [facility] Blood platelet mean volumeOr dered By: Nehemias Beauchamp on 11-05-2023 Platelet mean volume (Bld) [Entitic vol] 10.2 fL 6.2-12.0 [facility] Blood segmented neutrophils/ 100 leukocytesOrdered By: Nehemias Beauchamp on 11-05-2023 Segmented neutrophils/100 WBC (Bld) 80 % 47-70 [facility] Determination of erythrocyte mean corpuscular volume (MCV)Ordered By: Nehemias Beauchamp on 11-05-2023 MCV (RBC) [Entitic vol] 89.7 fL 80-94 [facility] Hematocrit Auto (Bld) [Volum e fraction]Ordered By: Nehemias Beauchamp on 11-05-2023 Hematocrit (Bld) [Volume fraction] 42.9 % 40-54 [facility] - Chemistry and C hemistry - challengeOrdered By: Nehemias Beauchamp on 11-05-2023 CO2 [Moles/Vol] 27.0 mmol/L 21.0-32.0 [facility] Magnesium [Mass/Vol] 2.4 mg/dL 1.6-2.6 [facility] Urea nitrogen/Creatinine [Mass ratio] 9.5 mg/mg 10-20 [facility] - Hematology and Cell countsOrdered By: Nehemias Beauchamp on 11-05-2023 Erythrocyte distribution width (RBC) [Entitic vol] 48.1 fL 35.1-43.9 [facility] Erythrocyte distribution width (RBC) [Ratio] 14.5 % 11.6-14.6 [facility] MCH (RBC) [Entitic mass] 30.3 pg 27.0-32.0 [facility] Myelocytes/100 WBC (Bld) 3 % 0-0 [facility] MCHC Auto (RBC) [Mass/Vol]Or dered By: Nehemias Beauchamp on 11-05-2023 MCHC (RBC) [Mass/Vol] 33.8 g/dL 32-36 [facility] Magnesiumon 11-05-2023 Magnesium [Mass/Vol] 2.4 mg/dL Normal 1.6-2.6 [facility] Comment on above: Performed By: #### L 501.5200, L500.2500, L100.0100, L501.2300 #### [facility] [address] [place], [address] No Panel InformationOrdered By: Nehemias Beauchamp on 11-05-2023 Estimated Creatinine Clearance Calc 132.90 ml/min [facility] Estimated GFR (MDRD) Amer 148 mL/min >60 [facility] Comment on above: GFR Calc Estimated GFR (MDRD) Non-Af Amer 122 mL/min >60 [facility] Comment on above: Non- GFR Calc Phosphoruson 11-05-2023 Phosphate [Mass/Vol] 2.9 mg/dL Normal 2.5-4.9 [facility] Comment on above: Performed By: #### L 501.5200, L500.2500, L100.0100, L501.2300 #### [facility] [address] [place], [address] Platelets bldOrdered By: Luz Beauchamp on 11-05-2023 Platelets (Bld) [#/Vol] 408 10*3/uL 150-450 [facility] RBC morphologyOrdered By: Merissa Beauchamp on 11-05-2023 RBC morphology finding Nom (Bld) NORM C+C NORMAL NORM C&C [facility] Review by pathologistOrdered By: Nehemias Beauchamp on 11-05-2023 Pathologist review Hern[place] (Unsp spec) [Interp] Reviewed [facility] Comment on above: Previous reported re sult: Tatiana bhatti Edited by: REGIS on 11/07/23:1324Neutrophilic leukocytosis with left shift.Clinical correlation necessary.Taj Jimenez M.D. 11/07/23 AMENDED REPORT 11/07/23 1324 PATH REV previously reported as: Tatiana bhatti Pathologist review [place] (Unsp spec) [Interp] Tatiana bhatti [facility] Serum or plasma calcium adam urement (mass/volume)Ordered By: Nehemias Beauchamp on 11-05-2023 Calcium [Mass/Vol] 8.2 mg/dL 8.5-10.1 [facility] Serum or plasma creatinine m easurement (mass/volume)Ordered By: Nehemias Beauchamp on 11-05-2023 Creatinine [Mass/Vol] 0.74 mg/dL 0.70-1.30 [facility] Comment on above: The validity of the calculated GFR & GFRAA in patients over 70 years has not been determined. Clinical correlation is essential. Serum or plasma urea nitroge n measurement (mass/volume)Ordered By: Nehemias Beauchamp on 11-05-2023 Urea nitrogen [Mass/Vol] 7 mg/dL 7-18 [facility] Thin prep Papanicolaou smear with manual screeningOrdered By: Nehemias Beauchamp on 11-05-2023 Thin prep Papanicolaou smear with manual screening 5 5-15 [facility] Total cell countOrdered By: Nehemias Beauchamp on 11-05-2023 Cells counted Molgen (Bld/Tiss) [#] 100 MANUAL DIFF [facility] Abdomen/Pelvis WITH Contrast on 11-04-2023 Abdomen/Pelvis WITH Contrast [facility] Imaging Services [address] [place] [address] Abdomen/Pelvis WITH Contrast MR#: [id number] Acct: [id number] Name: JOE CLARK Rep #: [id number] : 1980 M 42 From: Yonatan Obando MD PCP: Dr. Humberto Dsouza MD Status: ADM IN Study: Abdomen/Pelvis WITH Contrast Date of Exam: Exam# [id number] Ordering Dr: Debbie Rodríguez P A-C ADDENDUM by Dr. Yonatan Obando MD on 11/04/23 at 0815 ADDENDUM [id number] A prior CT abdomen pelvis from an outside hospital from November 02, 2023 was sent for comparison. The exam is unreadable in the format submitted. If acceptable images of the prior exam can be submitted, an addendum will be issued. Electronically Signed: Yonatan Obando MD at 8:15 EST , 11/04/23 0815 Date cc: LM Rodríguez; Dr. Humberto Dsouza MD * Signed ADDENDUM by Dr. Yonatan Obando MD on 11/04/[address]/Abdomen/Pelvis WITH Contrast IMPRESSION: undefined 11/04/23 08 Date cc: LM Rodríguez; Dr. Humberto Dsouza MD * Signed [id number] EXAM: CT abdomen and pelvis with contrast. HISTORY: Perforated sigmoid diverticulitis TECHNIQUE: CT Abdomen And Pelvis W/ Contrast Injection. A radiation dose optimization technique was used for this scan. COMPARISON: None. LIMITATIONS: None. LOWER CHEST: Mild atelectasis in the left lung base.. LIVER: Normal. GALLBLADDER: Normal. BILE DUCTS: Normal. PANCREAS: Normal. SPLEEN: Normal. ADRENAL GLANDS: Normal. KIDNEYS/URETERS/BLAD MADDY: Cyst in the left kidney. No hydronephrosis. AORTA: Normal caliber. BOWEL/MESENTERY: Multiple diverticula are identified. There is extensive pericolonic inflammatory change at the sigmoid colon. A collection of fluid and gas in the same region measures 6.2 x 6 cm. No small bowel obstruction. APPENDIX: Normal. PERITONEUM: No gross free fluid.. REPRODUCTIVE ORGANS: Normal. BONES/SOFT TISSUES: No acute fracture. Right hip prosthesis. 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 OTHER: None. CONCLUSION: Sigmoid diverticulitis with localized perforation and a 6.2 cm abscess. Electronically Signed: oYnatan Obando MD at 7:42 EST , CT/Abdomen/Pelvis WITH Contrast IMPRESSION: undefined CC: LM Rodríguez; Dr. Humberto Dsouza MD Hand Candy Cutter: Signed Normal [facility] Bacteria identified Anaer cx Nom (Unsp spec)Ordered By: Nehemias Beauchamp on 11-04-2023 Anaerobic Culture Bacteroides caccae [facility] Anaerobic Culture [place] turgerbernsis [facility] Bacteria identified Cx Nom ( Wound)Ordered By: Nehemias Beauchamp on 11-04-2023 Wound Culture Escherichia coli [facility] Wound Culture Streptococcus sanguinis [facility] Basic Metabolic Profile (BMP )on 11-04-2023 BUN/CRE 10.5 RATIO Normal 10-20 [facility] Comment on above: Performed By: #### L 100.0100, L501.2300, L500.2500, L501.5200 ####[facility] [address] [place], [address] CA,Total 8.1 mg/dL Low 8.5-10.1 [facility] Comment on above: Performed By: #### L 100.0100, L501.2300, L500.2500, L501.5200 ####[facility] [address] [place], [address] Chloride [Moles/Vol] 99 mmol/L Normal 98-107 [facility] Comment on above: Performed By: #### L 100.0100, L501.2300, L500.2500, L501.5200 ####[facility] [address] [place], [address] CO2 [Moles/Vol] 29.0 mmol/L Normal 21.0-32.0 [facility] Comment on above: Performed By: #### L 100.0100, L501.2300, L500.2500, L501.5200 ####[facility] [address] [place], [address] Creatinine [Mass/Vol] 0.76 mg/dL Normal 0.70-1.30 [facility] Comment on above: Result Comment: The validity of the calculated GFR GFRAA in patients over 70 years has not been determined. Clinical correlation is essential. Performed By: #### L 100.0100, L501.2300, L500.2500, L501.5200 ####[facility] [address] [place], [address] ECRCL 129.40 ml/min Normal [facility] Comment on above: Performed By: #### L 100.0100, L501.2300, L500.2500, L501.5200 ####[facility] [address] [place], [address] EST GFR - AA 144 mL/min Normal >60 [facility] Comment on above: Result Comment: Afri can [place] GFR Calc Performed By: #### L 100.0100, L501.2300, L500.2500, L501.5200 ####[facility] [address] [place], [address] GAP 6 Normal 5-15 [facility] Comment on above: Performed By: #### L 100.0100, L501.2300, L500.2500, L501.5200 ####[facility] [address] [place], [address] GFR/1.73 sq M.predicted among non-blacks MDRD (S/P/Bld) [Vol rate/Area] 119 mL/min/{1.73_m2} Normal >60 [facility] [facility] Comment on above: Result Comment: Non- GFR Calc Performed By: #### L 100.0100, L501.2300, L500.2500, L501.5200 ####[facility] [address] [place], [address] Glucose [Mass/Vol] 90 mg/dL Normal 74-106 [facility] Comment on above: Performed By: #### L 100.0100, L501.2300, L500.2500, L501.5200 ####[facility] [address] [place], [address] Potassium [Moles/Vol] 3.2 mmol/L Low 3.5-5.1 [facility] Comment on above: Performed By: #### L 100.0100, L501.2300, L500.2500, L501.5200 ####[facility] [address] [place], [address] Sodium [Moles/Vol] 134 mmol/L Low 136-145 [facility] Comment on above: Performed By: #### L 100.0100, L501.2300, L500.2500, L501.5200 ####[facility] [address] [place], [address] Urea nitrogen [Mass/Vol] 8 mg/dL Normal 7-18 [facility] Comment on above: Performed By: #### L 100.0100, L501.2300, L500.2500, L501.5200 ####[facility] [address] [place], [address] Blood eosinophils/100 leukoc ytesOrdered By: Nehemias Beauchamp on 11-04-2023 Eosinophils/100 WBC (Bld) 1 % 0-5 [facility] Blood metamyelocytes/100 benny kocytesOrdered By: Nehemias Beauchamp on 11-04-2023 Metamyelocytes/100 WBC (Bld) 3 % 0-1 [facility] CBC W/Diff, Automatedon 10-21 PATH REV Reviewed Normal [facility] Comment on above: Result Comment: Neut rophilic leukocytosis. Clinical correlation necessary. Taj Jimenez M.D. 11/04/23 AMENDED REPORT 11/04/23 1320 PATH REV previously reported as: March magy Performed By: #### L 100.0100, L501.5200, L501.2300, L500.2500 ####[facility] [address] [place], [address] Absolute Neut Normal 2.0-7.7 [facility] Comment on above: Result Comment: Canc elled via OM: Duplicate Order Performed By: #### L 100.0100, L300.3900, L300.4310 ####[facility] [address] [place], [address] HCT Normal 40-54 [facility] Comment on above: Result Comment: Canc elled via OM: Duplicate Order Performed By: #### L 100.0100, L300.3900, L300.4310 ####[facility] [address] [place], [address] HGB Normal 13.0-16.5 [facility] Comment on above: Result Comment: Canc elled via OM: Duplicate Order Performed By: #### L 100.0100, L300.3900, L300.4310 ####[facility] [address] [place], [address] MCH Normal 27.0-32.0 [facility] Comment on above: Result Comment: Canc elled via OM: Duplicate Order Performed By: #### L 100.0100, L300.3900, L300.4310 ####[facility] [address] [place], [address] MCHC Normal 32-36 [facility] Comment on above: Result Comment: Canc elled via OM: Duplicate Order Performed By: #### L 100.0100, L300.3900, L300.4310 ####[facility] [address] [place], [address] MCV Normal 80-94 [facility] Comment on above: Result Comment: Canc elled via OM: Duplicate Order Performed By: #### L 100.0100, L300.3900, L300.4310 ####[facility] [address] [place], [address] NEUT% Normal 47-70 [facility] Comment on above: Result Comment: Canc elled via OM: Duplicate Order Performed By: #### L 100.0100, L300.3900, L300.4310 ####[facility] [address] [place], [address] PLT Normal 150-450 [facility] Comment on above: Result Comment: Canc elled via OM: Duplicate Order Performed By: #### L 100.0100, L300.3900, L300.4310 ####[facility] [address] [place], [address] RBC Normal 4.6-6.2 [facility] Comment on above: Result Comment: Canc elled via OM: Duplicate Order Performed By: #### L 100.0100, L300.3900, L300.4310 ####[facility] [address] [place], [address] RDW CV Normal 11.6-14.6 [facility] Comment on above: Result Comment: Canc elled via OM: Duplicate Order Performed By: #### L 100.0100, L300.3900, L300.4310 ####[facility] [address] [place], [address] RDW SD Normal 35.1-43.9 [facility] Comment on above: Result Comment: Canc elled via OM: Duplicate Order Performed By: #### L 100.0100, L300.3900, L300.4310 ####[facility] [address] [place], [address] WBC Normal 4.4-11.0 [facility] Comment on above: Result Comment: Canc elled via OM: Duplicate Order Performed By: #### L 100.0100, L300.3900, L300.4310 ####[facility] [address] [place], [address] CT Guidance Abscess Drg w/Ca thon 11-04-2023 CT Guidance Abscess Drg w/Cath [facility] Imaging Services [address] [place] [address] CT Guidance Abscess Drg w/Cath MR#: [id number] Acct: [id number] Name: JOE CLARK Rep #: [id number] : 1980 M 42 From: Lobo perdue MD PCP: Dr. Humberto Dsouza MD Status: ADM IN Study: CT Guidance Abscess Drg w/Cath Date of Exam: 1 01/05/23 Exam# [id number] Ordering Dr: Nehemias Beauchamp MD [id number] PROCEDURE: CT DIRECTED ABSCESS DRAINAGE, PERITONEAL DATE OF EXAMINATION: PROCEDURE: CT DIRECTED ABSCESS DRAINAGE, PERITONEAL DATE OF EXAMINATION: INDICATION: Male, 42 years old. PHYSICIAN: Lobo Schofield M.D. CONSENT: Written informed consent was obtained having explained the risks, benefits and alternatives in detail with the patient who accepted the risks and agreed to proceed. Laboratory review and clinical assessment was performed. CONSCIOUS SEDATION PROTOCOL: The Drugs used were: 5 mg Versed, IV., and 125 mcg Fentanyl, IV. The sedation time was: 15 minutes. The conscious sedation protocol was independently monitored. RADIATION DOSAGE (If Supplied By Facility): CTDIvol = ( 15.5 ) mGy, DLP = ( 1113.17 ) mGycm. Individualized dose optimization techniques were utilized. TECHNIQUE: CT sections were made through the abdomen and pelvis revealing an abscess in the left side of the pelvis adjacent to the sigmoid colon. The skin surface was prepped and draped in a sterile fashion. Puncture of this collection was performed initially with a 18-gauge biopsy needle and fluid was aspirated. An 8 [place]i Drainage catheter was then inserted into the collection and formed into position. Additional fluid was aspirated for a total of approximately 20 cc of cloudy red fluid. The catheter was secured into position to allow for continued drainage. Followup CT sections reveals good position of the catheter. CT/CT Guidance Abscess Drg w/Cath IMPRESSION: 1. CT directed drainage of a fluid /abscess collection using CT image guidance and image documentation as described. 2. Conscious Sedation protocol utilized with independent monitoring Electronically Signed: Lobo Schofield MD at 13:50 EST , CC: Dr. Nehemias Beauchamp MD; Dr. Humberto Dsouza MD Hand Candy Cutter: Signed Normal [facility] Gram Stainon 11-04-2023 GS Gram Stain 4+ White Blood Cells 4+ Gram variable khalida 4+ Gram positive cocci Normal [facility] Comment on above: Performed By: #### M 100.2000, M100.3000, M100.4001 ####[facility] [address] [place], [address] Gram stain for investigation of transfusion reactionOrdered By: Nehemias Beauchamp on 11-04-2023 Microscopic observation Gram stain Nom (Unsp spec) [facility] Laboratory - CoagulationOrde red By: Jaclyn Delong on 11-04-2023 aPTT Coag (Bld) [Time] 33.2 s 24.1-36.2 [facility] PT Coag (PPP) [Time] 14.1 s 11.7-14.9 [facility] Magnesiumon 11-04-2023 Magnesium [Mass/Vol] 2.5 mg/dL Normal 1.6-2.6 [facility] Comment on above: Performed By: #### L 100.0100, L501.2300, L500.2500, L501.5200 ####[facility] [address] [place], [address] Partial Thromboplast Timeon 11-04-2023 aPTT Coag (Bld) [Time] 33.2 s Normal 24.1-36.2 [facility] Comment on above: Performed By: #### L 100.0100, L300.3900, L300.4310 ####[facility] [address] [place], [address] Phosphoruson 11-04-2023 Phosphate [Mass/Vol] 2.9 mg/dL Normal 2.5-4.9 [facility] Comment on above: Performed By: #### L 100.0100, L501.2300, L500.2500, L501.5200 ####[facility] [address] [place], [address] Prothrombin Time w/INRon INR Coag (PPP) [Relative time] 1.1 {INR} Normal [facility] Comment on above: Performed By: #### L 100.0100, L300.3900, L300.4310 ####[facility] [address] [place], [address] PT Coag (PPP) [Time] 14.1 s Normal 11.7-14.9 [facility] Comment on above: Performed By: #### L 100.0100, L300.3900, L300.4310 ####[facility] [address] [place], [address] Whole blood international no rmalized ratio (INR)Ordered By: Jaclyn Delong on 11-04-2023 INR Coag (Bld) [Relative time] 1.1 {INR} [facility] Basic Metabolic Profile (BMP )on 11-03-2023 BUN/CRE 14.2 RATIO Normal 10-20 [facility] Comment on above: Performed By: #### L 100.0100, L501.5200, L501.2300, L500.2500 ####[facility] [address] [place], [address] CA,Total 8.2 mg/dL Low 8.5-10.1 [facility] Comment on above: Performed By: #### L 100.0100, L501.5200, L501.2300, L500.2500 ####[facility] [address] [place], [address] Chloride [Moles/Vol] 101 mmol/L Normal 98-107 [facility] Comment on above: Performed By: #### L 100.0100, L501.5200, L501.2300, L500.2500 ####[facility] [address] [place], [address] CO2 [Moles/Vol] 28.0 mmol/L Normal 21.0-32.0 [facility] Comment on above: Performed By: #### L 100.0100, L501.5200, L501.2300, L500.2500 ####[facility] [address] [place], [address] Creatinine [Mass/Vol] 0.78 mg/dL Normal 0.70-1.30 [facility] Comment on above: Result Comment: The validity of the calculated GFR GFRAA in patients over 70 years has not been determined. Clinical correlation is essential. Performed By: #### L 100.0100, L501.5200, L501.2300, L500.2500 ####[facility] [address] [place], [address] ECRCL 126.09 ml/min Normal [facility] Comment on above: Performed By: #### L 100.0100, L501.5200, L501.2300, L500.2500 ####[facility] [address] [place], [address] EST GFR - AA 140 mL/min Normal >60 [facility] Comment on above: Result Comment: Afri can [place] GFR Calc Performed By: #### L 100.0100, L501.5200, L501.2300, L500.2500 ####[facility] [address] [place], [address] GAP 8 Normal 5-15 [facility] Comment on above: Performed By: #### L 100.0100, L501.5200, L501.2300, L500.2500 ####[facility] [address] [place], [address] GFR/1.73 sq M.predicted among non-blacks MDRD (S/P/Bld) [Vol rate/Area] 116 mL/min/{1.73_m2} Normal >60 [facility] Comment on above: Result Comment: Non- GFR Calc Performed By: #### L 100.0100, L501.5200, L501.2300, L500.2500 ####[facility] [address] [place], [address] Glucose [Mass/Vol] 89 mg/dL Normal 74-106 [facility] Comment on above: Performed By: #### L 100.0100, L501.5200, L501.2300, L500.2500 ####[facility] [address] [place], [address] Potassium [Moles/Vol] 3.1 mmol/L Low 3.5-5.1 [facility] Comment on above: Performed By: #### L 100.0100, L501.5200, L501.2300, L500.2500 ####[facility] [address] [place], [address] Sodium [Moles/Vol] 137 mmol/L Normal 136-145 [facility] Comment on above: Performed By: #### L 100.0100, L501.5200, L501.2300, L500.2500 ####[facility] [address] [place], [address] Urea nitrogen [Mass/Vol] 11 mg/dL Normal 7-18 [facility] Comment on above: Performed By: #### L 100.0100, L501.5200, L501.2300, L500.2500 ####[facility] [address] [place], [address] CBC W/Diff, Automatedon 10-21 PATH REV Reviewed Normal [facility] Comment on above: Result Comment: Leuk ocytosis. Clinical correlation necessary. Taj Jimenez M.D. 11/03/23 AMENDED REPORT 11/03/23 1356 PATH REV previously reported as: March magy Performed By: #### L 500.4050, L100.0100 #### [facility] [address] [place], [address] Magnesiumon 11-03-2023 Magnesium [Mass/Vol] 2.7 mg/dL High 1.6-2.6 [facility] Comment on above: Performed By: #### L 100.0100, L501.5200, L501.2300, L500.2500 ####[facility] [address] [place], [address] Phosphoruson 11-03-2023 Phosphate [Mass/Vol] 2.7 mg/dL Normal 2.5-4.9 [facility] Comment on above: Performed By: #### L 100.0100, L501.5200, L501.2300, L500.2500 ####[facility] [address] [place], [address] Absolute lymphocyte countOrd ered By: Kentrell Solano on 11-02-2023 Lymphocytes Auto (Unsp spec) [#/Vol] 2.54 10*3/uL 0.83-4.51 [facility] Basophil percentageOrdered B y: Kentrell Solano on 11-02-2023 Basophil percentage Not Reportable [facility] Bilirubin [Mass/Vol] 1.20 mg/dL 0.20-1.00 [facility] Comment on above: For patients on eltr ombopag therapy, use of Dimension [place] TBIL is not recommended. Chloride [Moles/Vol] 93 mmol/L 98-107 [facility] Glucose [Mass/Vol] 116 mg/dL 74-106 [facility] Comment on above: Fasting Glucose resu lt from 100 to 125 mg/dL suggests IMPAIRED HOMEOSTASIS per A.D.A. criteria. Neutrophils (Bld) [#/Vol] 22.8 10*3/uL 2.0-7.7 [facility] Potassium [Moles/Vol] 3.4 mmol/L 3.5-5.1 [facility] Comment on above: Slight Hemolysis, Re sult may be falsely increased. Protein [Mass/Vol] 8.1 g/dL 6.4-8.2 [facility] Sodium [Moles/Vol] 130 mmol/L 136-145 [facility] WBC (Bld) [#/Vol] 28.2 10*3/uL 4.4-11.0 [facility] Blood band neutrophil count as percentage of total leukocytesOrdered By: Kentrell Solano on 11-02-2023 Band form neutrophils/100 WBC (Bld) 8 % 0-5 [facility] Blood eosinophils/100 leukoc ytesOrdered By: Kentrell Solano on 11-02-2023 Eosinophils/100 WBC (Bld) 1 % 0-5 [facility] Blood erythrocytes count (nu mber/volume)Ordered By: Kentrell Solano on 11-02-2023 RBC (Bld) [#/Vol] 4.95 10*6/uL 4.6-6.2 [facility] Blood hemoglobin measurement (mass/volume)Ordered By: Kentrell Solano on 11-02-2023 Hemoglobin (Bld) [Mass/Vol] 15.0 g/dL 13.0-16.5 [facility] Blood lymphocytes/100 leukoc ytesOrdered By: Kentrell Solano on 11-02-2023 Lymphocytes/100 WBC (Bld) 9 % 19-41 [facility] Blood metamyelocytes/100 benny kocytesOrdered By: Kentrell Solano on 11-02-2023 Metamyelocytes/100 WBC (Bld) 1 % 0-1 [facility] Blood monocytes/100 leukocyt esOrdered By: Kentrell Solano on 11-02-2023 Monocytes/100 WBC (Bld) 5 % 0-10 [facility] Blood platelet adequacy dete ction by light microscopyOrdered By: Kentrell Solano on 11-02-2023 Platelets LM Ql (Bld) ADEQUATE ADEQ [facility] Blood platelet mean volumeOr dered By: Kentrell Solano on 11-02-2023 Platelet mean volume (Bld) [Entitic vol] 10.4 fL 6.2-12.0 [facility] Blood segmented neutrophils/ 100 leukocytesOrdered By: Kentrell Solano on 11-02-2023 Segmented neutrophils/100 WBC (Bld) 73 % 47-70 [facility] Comprehensive Metabolic Prof ilon 11-02-2023 Albumin [Mass/Vol] 3.3 g/dL Normal 3.2-5.0 [facility] Comment on above: Performed By: #### L 500.4050, L100.0100 #### [facility] [address] [place], [address] Albumin/Globulin [Mass ratio] 0.7 {ratio} Low 0.9-2.4 [facility] Comment on above: Performed By: #### L 500.4050, L100.0100 #### [facility] [address] [place], [address] ALK P 148 U/L High 45-117 [facility] Comment on above: Performed By: #### L 500.4050, L100.0100 #### [facility] [address] [place], [address] ALT [Catalytic activity/Vol] 105 U/L High 16-61 [facility] Comment on above: Performed By: #### L 500.4050, L100.0100 #### [facility] [address] [place], [address] AST [Catalytic activity/Vol] 58 U/L High 15-37 [facility] Comment on above: Result Comment: Slig ht Hemolysis, Result may be falsely increased. Performed By: #### L 500.4050, L100.0100 #### [facility] [address] [place], [address] Bilirubin [Mass/Vol] 1.20 mg/dL High 0.20-1.00 [facility] Comment on above: Result Comment: For patients on eltrombopag therapy, use of Dimension [place] TBIL is not recommended. Performed By: #### L 500.4050, L100.0100 #### [facility] [address] [place], [address] BUN/CRE 14.0 RATIO Normal 10-20 [facility] Comment on above: Performed By: #### L 500.4050, L100.0100 #### [facility] [address] [place], [address] CA,Total 9.3 mg/dL Normal 8.5-10.1 [facility] Comment on above: Performed By: #### L 500.4050, L100.0100 #### [facility] [address] [place], [address] Chloride [Moles/Vol] 93 mmol/L Low 98-107 [facility] Comment on above: Performed By: #### L 500.4050, L100.0100 #### [facility] [address] [place], [address] CO2 [Moles/Vol] 32.0 mmol/L Normal 21.0-32.0 [facility] Comment on above: Performed By: #### L 500.4050, L100.0100 #### [facility] [address] [place], [address] Creatinine [Mass/Vol] 1.14 mg/dL Normal 0.70-1.30 [facility] Comment on above: Result Comment: The validity of the calculated GFR GFRAA in patients over 70 years has not been determined. Clinical correlation is essential. Performed By: #### L 500.4050, L100.0100 #### [facility] [address] [place], [address] ECRCL 86.27 ml/min Normal [facility] Comment on above: Performed By: #### L 500.4050, L100.0100 #### [facility] [address] [place], [address] EST GFR - AA 90 mL/min Normal >60 [facility] Comment on above: Result Comment: Afri can [place] GFR Calc Performed By: #### L 500.4050, L100.0100 #### [facility] [address] [place], [address] GAP 5 Normal 5-15 [facility] Comment on above: Performed By: #### L 500.4050, L100.0100 #### [facility] [address] [place], [address] GFR/1.73 sq M.predicted among non-blacks MDRD (S/P/Bld) [Vol rate/Area] 74 mL/min/{1.73_m2} Normal >60 [facility] Comment on above: Result Comment: Non- GFR Calc Performed By: #### L 500.4050, L100.0100 #### [facility] [address] [place], [address] Globulin (S) [Mass/Vol] 4.8 g/dL High 2.2-4.2 [facility] Comment on above: Performed By: #### L 500.4050, L100.0100 #### [facility] [address] [place], [address] Glucose [Mass/Vol] 116 mg/dL High 74-106 [facility] Comment on above: Result Comment: Fast ing Glucose result from 100 to 125 mg/dL suggests IMPAIRED HOMEOSTASIS per A.D.A. criteria. Performed By: #### L 500.4050, L100.0100 #### [facility] [address] [place], [address] Potassium [Moles/Vol] 3.4 mmol/L Low 3.5-5.1 [facility] Comment on above: Result Comment: Slig ht Hemolysis, Result may be falsely increased. Performed By: #### L 500.4050, L100.0100 #### [facility] [address] [place], [address] Sodium [Moles/Vol] 130 mmol/L Low 136-145 [facility] Comment on above: Performed By: #### L 500.4050, L100.0100 #### [facility] [address] [place], [address] T PROT 8.1 g/dL Normal 6.4-8.2 [facility] Comment on above: Performed By: #### L 500.4050, L100.0100 #### [facility] [address] [place], [address] Urea nitrogen [Mass/Vol] 16 mg/dL Normal 7-18 [facility] Comment on above: Performed By: #### L 500.4050, L100.0100 #### [facility] [address] [place], [address] Determination of erythrocyte mean corpuscular volume (MCV)Ordered By: Kentrell Solano on 11-02-2023 MCV (RBC) [Entitic vol] 88.9 fL 80-94 [facility] Emergency Department Summary on 11-02-2023 Emergency Department Summary [facility] Medical Records Department [address] [place] [address] Emergency Department Summary 11/02/23 MR#: [id number] Acct: [id number] Name: JOE CLARK Rep #: [id number] : 1980 42 From: Kentrell Solano MD PCP: Dr. Humberto Dsouza MD Status:REG ER Location: ED HPI HPI - GI History of Present Illness Chief Complaint: Abd Pain Narrative Narrative: 42-year-old male who denies significant past medical history presents with diverticulitis on CT scan with possible abscess. He relates history that over the last week he has had abdominal pain and bloating, along with obstipation. No fevers or chills. He may have been nauseated but he forced himself to vomit which made him feel better temporarily. He has been showing improvement over the last 5 days with his abdominal pain, but he saw his primary care provider who ordered an outpatient CT with oral and IV contrast. After the CT was performed performed as an outpatient, he went home and had 2 large bowel movements and feels improved. However, he was told that the CT read showed diverticulitis with abscess, so he needed to come to the emergency department and be admitted for a few rounds of IV antibiotics. He denies any exacerbating or alleviating factors but states that he is feeling improved with his abdominal pain. Additionally, he denies any past abdominal surgical history. [facility] Medical History no medical history Allergy/AdvReac Type Severity Reaction Status Date / Time amoxicillin Allergy Intermediate Hives Verified 11/02/23 15:29 Social History Smoking Status: Light Smoker (<10/day) ROS ROS ED ROS Narrative Constitutional: No fever, no chills. HEENT: No sore throat. No neck pain. No loss of vision. No rhinorrhea. Cardiovascular: No chest pain. No palpitations. No pedal edema. Respiratory: No cough, no shortness of breath. Abdominal: No abdominal pain. Positive nausea. No vomiting. Positive obstipation. Mild diffuse abdominal pain, improving. Genitourinary: No dysuria. No hematuria. Musculoskeletal: No myalgias. No arthralgias. Neurologic: No headaches. No dizziness. No lightheadedness. Skin: No rash. No change in color. Psychiatric: No depression. No anxiety. EXAM Physical Exam Narrative Exam Narrative: Afebrile. Vital signs noted. HEENT: Normocephalic. Atraumatic. PERRL, EOMI. Neck soft and supple. No point tenderness or step off. Cardiovascular: Regular rate and rhythm. No murmurs, rubs, or gallops appreciated. Respiratory: No tachypnea. Lungs clear to auscultation bilaterally. Gastrointestinal: Abdomen soft, nontender, with normoactive to slightly decreased bowel sounds. No rebound or guarding. Neurological: Awake. Alert. Nonfocal, nonlateralizing. Skin: No rash. Normal color. No pallor. Musculoskeletal: No pedal edema. Full range of motion extremities. Const Vital Signs: 11/02/23 15:27 Temperature 96.8 F L Temperature Source Temporal Pulse Rate 94 Respiratory Rate 16 Blood Pressure 131/96 H Blood Pressure Mean 107 Pulse Ox 100 Oxygen Delivery Method Room Air MDM MDM MDM Narrative Medical decision making narrative: I do not feel that the differential is warranted as he presents with imaging studies saying that he has diverticulitis. I reviewed the CT results from the outside facility and there is marked inflammatory changes of the sigmoid colon consistent with diverticulitis. Superior and to the left of the colon is a hypoattenuating focus with an area suspicious for phlegmon versus abscess. He may have a microperforation. There is extraluminal punctate air and superior into the left of the sigmoid is an air-fluid level. There is also moderate stool retention. I will obtain a CBC and CMP and start him on Cipro and Flagyl as he has hives to amoxicillin. I will discuss patient with Dr. Beauchamp with general surgery. I reviewed his laboratory work and he has a leukocytosis of 28.2, hemoglobin normal at 15. He has elevated neutrophils of 73 and band of 8. His CMP is significant for a sodium of 130, LFTs are sl ightly elevated with AST of 58 and ALT of 105 with slightly elevated alk phos. In discussion with Dr. Beauchamp, he was able to review the CT imaging that had been downloaded from the outside facility. Patient will be admitted to the medical surgical floor. Patient is in stable condition. History Record Review Discussion w/independent historian: Patient Lab Data Attestation: I reviewed the patient's lab results. Labs: Laboratory Results - last 24 hr 11/02/23 15:40 WBC 28.2 H RBC 4.95 Hgb 15.0 Hct 44.0 MCV 88.9 MCH 30.3 MCHC 34.1 RDW Std Deviation 45.5 H RDW Coeff of Hayden 14.1 Plt Count 370 MPV 10.4 Neut % (Auto) Not Reportable Absolute Neuts (auto) 22.8 H Absolute Lymphs (more content not included)... Normal [facility] Hematocrit Auto (Bld) [Volum e fraction]Ordered By: Kentrell Solano on 11-02-2023 Hematocrit (Bld) [Volume fraction] 44.0 % 40-54 [facility] Laboratory - Chemistry and C hemistry - challengeOrdered By: Kentrell Solano on 11-02-2023 ALP [Catalytic activity/Vol] 148 U/L 45-117 [facility] ALT [Catalytic activity/Vol] 105 U/L 16-61 [facility] CO2 [Moles/Vol] 32.0 mmol/L 21.0-32.0 [facility] Globulin (S) [Mass/Vol] 4.8 g/dL 2.2-4.2 [facility] Urea nitrogen/Creatinine [Mass ratio] 14.0 mg/mg 10-20 [facility] Laboratory - Hematology and Cell countsOrdered By: Kentrell Solano on 11-02-2023 Erythrocyte distribution width (RBC) [Entitic vol] 45.5 fL 35.1-43.9 [facility] Erythrocyte distribution width (RBC) [Ratio] 14.1 % 11.6-14.6 [facility] MCH (RBC) [Entitic mass] 30.3 pg 27.0-32.0 [facility] Myelocytes/100 WBC (Bld) 3 % 0-0 [facility] MCHC Auto (RBC) [Mass/Vol]Or dered By: Kentrell Solano on 11-02-2023 MCHC (RBC) [Mass/Vol] 34.1 g/dL 32-36 [facility] No Panel InformationOrdered By: Kentrell Solano on 11-02-2023 Estimated Creatinine Clearance Calc 86.27 ml/min [facility] Estimated GFR (MDRD) Amer 90 mL/min >60 [facility] Comment on above: GFR Calc Estimated GFR (MDRD) Non-Af Amer 74 mL/min >60 [facility] Comment on above: Non- GFR Calc Platelets bldOrdered By: Mis Solano on 11-02-2023 Platelets (Bld) [#/Vol] 370 10*3/uL 150-450 [facility] RBC morphologyOrdered By: Bryan Solano on 11-02-2023 RBC morphology finding Nom (Bld) NORM C+C NORMAL NORM C&C [facility] Review by pathologistOrdered By: Kentrell Solano on 11-02-2023 Pathologist review Hernesto (Unsp spec) [Interp] May foll [facility] Serum or plasma albumin adam urement (mass/volume)Ordered By: Kentrell Solano on 11-02-2023 Albumin [Mass/Vol] 3.3 g/dL 3.2-5.0 [facility] Serum or plasma albumin/glob ulin mass ratioOrdered By: Kentrell Solano on 11-02-2023 Albumin/Globulin [Mass ratio] 0.7 {ratio} 0.9-2.4 [facility] Serum or plasma calcium adam urement (mass/volume)Ordered By: Kentrell Solano on 11-02-2023 Calcium [Mass/Vol] 9.3 mg/dL 8.5-10.1 [facility] Serum or plasma creatinine m easurement (mass/volume)Ordered By: Kentrell Solano on 11-02-2023 Creatinine [Mass/Vol] 1.14 mg/dL 0.70-1.30 [facility] Comment on above: The validity of the calculated GFR & GFRAA in patients over 70 years has not been determined. Clinical correlation is essential. Serum or plasma urea nitroge n measurement (mass/volume)Ordered By: Kentrell Solano on 11-02-2023 Urea nitrogen [Mass/Vol] 16 mg/dL 7-18 [facility] Thin prep Papanicolaou smear with manual screeningOrdered By: Kentrell Solano on 11-02-2023 Thin prep Papanicolaou smear with manual screening 58 U/L 15-37 [facility] Comment on above: Slight Hemolysis, Re sult may be falsely increased. Thin prep Papanicolaou smear with manual screening 5 5-15 [facility] Total cell countOrdered By: Kentrell Solano on 11-02-2023 Cells counted [employer] (Bld/Tiss) [#] 100 MANUAL DIFF [facility] .Auto Diffon 11-01-2023 Basophil, Absolute 0.0 10 3/mcL Normal 0.0-0.3 [facility] ([place]) Comment on above: Performed By: #### C MP, ANEU, CBC, ADIFF, GFR #### [facility] [address] [place] [id number] Basophils/100 WBC (Bld) 0.2 % Normal 0.0-2.5 [facility] ([place]) Comment on above: Performed By: #### C MP, ANEU, CBC, ADIFF, GFR #### [address] [address] Eosinophil, Absolute 0.1 10 3/mcL Normal 0.0-0.7 [facility] ([place]) Comment on above: Performed By: #### C MP, ANEU, CBC, ADIFF, GFR #### [address] [address] Eosinophils/100 WBC (Bld) 0.5 % Normal 0.0-6.0 [facility] ([place]) Comment on above: Performed By: #### C MP, ANEU, CBC, ADIFF, GFR #### [address] [address] Lymphocyte, Absolute 1.6 10 3/mcL Normal 0.9-4.3 [facility] ([place]) Comment on above: Performed By: #### C MP, ANEU, CBC, ADIFF, GFR #### [address] [address] Lymphocytes/100 WBC (Bld) 8.8 % Low 20.0-40.0 [facility] ([place] Comment on above: Performed By: #### C MP, ANEU, CBC, ADIFF, GFR #### [address] [address] Monocyte, Absolute 1.4 10 3/mcL Normal 0.1-1.4 [facility] ([place] Comment on above: Performed By: #### C MP, ANEU, CBC, ADIFF, GFR #### [address] [address] Monocytes/100 WBC (Bld) 7.7 % Normal 2.0-13.0 [facility] ([place]) Comment on above: Performed By: #### C MP, ANEU, CBC, ADIFF, GFR #### [address] [address] Neutrophils/100 WBC (Bld) 82.8 % High 50.0-75.0 [facility] ([place] Comment on above: Performed By: #### C MP, ANEU, CBC, ADIFF, GFR #### [address] [address] .GFRon 11-01-2023 GFR Non- >60 Normal [facility] ([place]) Comment on above: Result Comment: GFR Population mean for , Non- Americans Ages 20-29 = 116 mL/min/1.73 sq.m. Ages 30-39 = 107 mL/min/1.73 sq.m. Ages 40-49 = 99 mL/min/1.73 sq.m. Ages 50-59 = 93 mL/min/1.73 sq.m. Ages 60-69 = 85 mL/min/1.73 sq.m. Ages 70+ = 75 mL/min/1.73 sq.m. Chronic Kidney Disease: Less than 60 mL/min/1.73 square meters End Stage Renal Disease: Less than 15 mL/min/1.73 square meters Performed By: #### C MP, ANEU, CBC, ADIFF, GFR #### [address] [address] GFR >60 Normal [facility] ([place] Comment on above: Result Comment: GFR Population mean for , Non- Americans Ages 20-29 = 116 mL/min/1.73 sq.m. Ages 30-39 = 107 mL/min/1.73 sq.m. Ages 40-49 = 99 mL/min/1.73 sq.m. Ages 50-59 = 93 mL/min/1.73 sq.m. Ages 60-69 = 85 mL/min/1.73 sq.m. Ages 70+ = 75 mL/min/1.73 sq.m. Chronic Kidney Disease: Less than 60 mL/min/1.73 square meters End Stage Renal Disease: Less than 15 mL/min/1.73 square meters Performed By: #### C MP, ANEU, CBC, ADIFF, GFR #### [address] [address] .NEUABSon 11-01-2023 Neutrophil, Absolute 15.0 10 3/mcL High 2.3-8.1 A [facility] ([place]) Comment on above: Performed By: #### C MP, ANEU, CBC, ADIFF, GFR #### [address] [address] CBCon 11-01-2023 Erythrocyte distribution width (RBC) [Ratio] 14.9 % Normal 11.5-15.5 [facility] ([place] Comment on above: Performed By: #### C MP, ANEU, CBC, ADIFF, GFR #### [place] [address] Hematocrit (Bld) [Volume fraction] 42.4 % Normal 40.0-52.0 [facility] ([place]) Comment on above: Performed By: #### C MP, ANEU, CBC, ADIFF, GFR #### [place] [id number] Hgb 13.8 G/dL Normal 13.0-17.5 [facility] ([place] Comment on above: Performed By: #### C MP, ANEU, CBC, ADIFF, GFR #### [place] [address] MCH (RBC) [Entitic mass] 30.3 pg Normal 27.0-33.0 [facility] ([place] Comment on above: Performed By: #### C MP, ANEU, CBC, ADIFF, GFR #### [place] [address] MCHC 32.6 G/dL Normal 32.0-36.0 [facility] ([place] Comment on above: Performed By: #### C MP, ANEU, CBC, ADIFF, GFR #### [place] [address] MCV (RBC) [Entitic vol] 93.0 fL Normal 81.0-100.0 [facility] ([place]) Comment on above: Performed By: #### C MP, ANEU, CBC, ADIFF, GFR #### [place] [address] Platelet 336 10 3/mcL Normal 150-450 [facility] ([place]) Comment on above: Performed By: #### C MP, ANEU, CBC, ADIFF, GFR #### [place] [address] Platelet mean volume (Bld) [Entitic vol] 10.0 fL Normal 6.4-10.5 [facility] ([place]) Comment on above: Performed By: #### C MP, ANEU, CBC, ADIFF, GFR #### [place] [address] RBC 4.56 10 6/mcL Normal 4.50-6.00 [facility] ([place]) Comment on above: Performed By: #### C MP, ANEU, CBC, ADIFF, GFR #### [place] [address] WBC 18.1 10 3/mcL High 4.5-10.8 [facility] ([place]) Comment on above: Performed By: #### C MP, ANEU, CBC, ADIFF, GFR #### [address] [address] CMPon 11-01-2023 Albumin Level 3.7 G/dL Normal 3.2-4.8 [facility] ([place]) Comment on above: Performed By: #### C MP, ANEU, CBC, ADIFF, GFR #### [place] [address] Albumin/Globulin [Mass ratio] 1.0 {ratio} Normal 0.9-1.6 [facility] ([place] Comment on above: Performed By: #### C MP, ANEU, CBC, ADIFF, GFR #### [address] [address] ALP [Catalytic activity/Vol] 121 U/L Normal 38-126 [facility] ([place] Comment on above: Performed By: #### C MP, ANEU, CBC, ADIFF, GFR #### [address] [address] ALT [Catalytic activity/Vol] 122 U/L High 12-55 [facility] ([place] Comment on above: Performed By: #### C MP, ANEU, CBC, ADIFF, GFR #### [address] [address] AST [Catalytic activity/Vol] 72 U/L High 8-34 [facility] ([place] Comment on above: Performed By: #### C MP, ANEU, CBC, ADIFF, GFR #### [place] [id number] Bili Total 0.70 mg/dL Normal 0.20-1.20 [facility] ([place]) Comment on above: Result Comment: Use of this assay is not recommended for patients undergoing treatment with eltrombopag due to the potential for falsely elevated results. Performed By: #### C MP, ANEU, CBC, ADIFF, GFR #### [place] [address] BUN/Creatinine Ratio 14.3 ratio Normal 10.0-22.0 [facility] ([place] Comment on above: Performed By: #### C MP, ANEU, CBC, ADIFF, GFR #### [place] [address] Calcium [Mass/Vol] 9.2 mg/dL Normal 8.7-10.4 [facility] ([place]) Comment on above: Performed By: #### C MP, ANEU, CBC, ADIFF, GFR #### [place] [address] Chloride [Moles/Vol] 98 mmol/L Normal 98-110 [facility] ([place]) Comment on above: Performed By: #### C MP, ANEU, CBC, ADIFF, GFR #### [place] [id number] CO2 [Moles/Vol] 30 mmol/L Normal 22-32 [facility] ([place]) Comment on above: Performed By: #### C MP, ANEU, CBC, ADIFF, GFR #### [address] [address] Creatinine [Mass/Vol] 0.84 mg/dL Normal 0.60-1.40 [facility] ([place]) Comment on above: Performed By: #### C MP, ANEU, CBC, ADIFF, GFR #### [address] [address] Electrolyte Balance 7.0 mEq/L Normal 4.0-15.0 [facility] ([place]) Comment on above: Performed By: #### C MP, ANEU, CBC, ADIFF, GFR #### [address] [address] Globulin 3.7 G/dL Normal 1.5-3.8 [facility] ([place] Comment on above: Performed By: #### C MP, ANEU, CBC, ADIFF, GFR #### [address] [address] Glucose [Mass/Vol] 101 mg/dL Normal 70-110 [facility] ([place]) Comment on above: Performed By: #### C MP, ANEU, CBC, ADIFF, GFR #### [address] [address] Potassium [Moles/Vol] 3.3 mmol/L Low 3.5-5.0 [facility] ([place]) Comment on above: Performed By: #### C MP, ANEU, CBC, ADIFF, GFR #### [address] [address] Sodium [Moles/Vol] 135 mmol/L Low 136-145 [facility] ([place]) Comment on above: Performed By: #### C MP, ANEU, CBC, ADIFF, GFR #### [address] [address] Total Protein 7.4 G/dL Normal 5.7-8.2 [facility] ([place]) Comment on above: Result Comment: No te - New Reference Range in effect 20 Performed By: #### C MP, ANEU, CBC, ADIFF, GFR #### [address] [address] Urea nitrogen [Mass/Vol] 12.0 mg/dL Normal 8.0-22.0 [facility] ([place]) Comment on above: Performed By: #### C MP, ANEU, CBC, ADIFF, GFR #### [address] [address] Laboratory - Chemistry and C hemistry - challengeon 10-31-2023 Albumin BCP dye [Mass/Vol] 3.7 g/dL Normal 3.2 - 4.8 g/dL [facility]; [facility] Albumin/Globulin [Mass ratio] 1.0 {ratio} Normal 0.9 - 1.6 {ratio} [facility]; [facility] ALP [Catalytic activity/Vol] 121 U/L Normal 38 - 126 U/L [facility].; [facility] ALT No additional P-5'-P [Catalytic activity/Vol] 122 U/L Abnormal 12 - 55 U/L [facility]; [facility]. AST [Catalytic activity/Vol] 72 U/L Abnormal 8 - 34 U/L [facility]; [facility], [facility]. Bilirubin [Mass/Vol] 0.70 mg/dL Normal 0.20 - 1.20 mg/dL [facility]; [facility] Calcium [Mass/Vol] 9.2 mg/dL Normal 8.7 - 10. 4 mg/dL [facility]; [facility], [facility]. Chloride [Moles/Vol] 98 mmol/L Normal 98 - 11 0 meq/L [facility]; [facility], [facility]. CO2 [Moles/Vol] 30 mmol/L Normal 22 - 32 meq/L [facility], [facility] Creatinine [Mass/Vol] 0.84 mg/dL Normal 0.60 - 1.40 mg/dL [facility].; [facility], [facility]. Globulin (S) [Mass/Vol] 3.7 g/dL Normal 1.5 - 3.8 g/dL [facility]; [facility], [facility] Glucose [Mass/Vol] 101 mg/dL Normal 70 - 110 mg/dL [facility]; [facility], [facility] Potassium [Moles/Vol] 3.3 mmol/L Abnormal 3.5 - 5.0 meq/L [facility]; [facility] Protein [Mass/Vol] 7.4 g/dL Normal 5.7 - 8.2 g/dL [facility]; [facility] Sodium [Moles/Vol] 135 mmol/L Abnormal 136 - 145 meq/L [facility]; [facility] Urea nitrogen [Mass/Vol] 12.0 mg/dL Normal 8.0 - 22.0 mg/dL [facility]; [facility] Urea nitrogen/Creatinine [Mass ratio] 14.3 {ratio} Normal 10.0 - 22.0 {ratio} [facility]; [facility] Laboratory - Hematology and Cell countson 10-31-2023 Erythrocyte distribution width (RBC) [Ratio] 14.9 % Normal 11.5 - 15.5 % [facility]; [facility] Hematocrit (Bld) [Volume fraction] 42.4 % Normal 40.0 - 52.0 % [facility]; [facility] Hemoglobin (Bld) [Mass/Vol] 13.8 g/dL Normal 13.0 - 17.5 g/dL [facility]; [facility] MCH (RBC) [Entitic mass] 30.3 pg Normal 27.0 - 33.0 pg [facility]; [facility] MCHC (RBC) [Mass/Vol] 32.6 g/dL Normal 32.0 - 36.0 g/dL [facility]; [facility] MCV (RBC) [Entitic vol] 93.0 fL Normal 81.0 - 100.0 fL [facility]; [facility] Platelet mean volume (Bld) [Entitic vol] 10.0 fL Normal 6.4 - 10.5 fL [facility]; [facility], [facility] Platelets (Bld) [#/Vol] 336 {10^3/mcL} Normal 15 0 - 450 {10^3/mcL} [facility], [facility] RBC (Bld) [#/Vol] 4.56 {10^6/mcL} Normal 4.50 - 6.00 {10^6/mcL} [facility].; [facility], [facility] WBC (Bld) [#/Vol] 18.1 {10^3/mcL} Abnormal 4.5 - 1 0.8 {10^3/mcL} [facility].; [facility], [facility]. No Panel Informationon 10-31 Electrolyte Balance 7.0 meq/L Normal 4.0 - 15 .0 meq/L [facility].; [facility] Vital Signs Date Time Vital Sign Value Performing Clinician Faci lity 01-06-2024 08:20-0500 Body temperature 98 [degF] Dr. Humberto Dsouza Work Phone: [facility] 01-06-2024 08:20-0500 Diastolic blood pressure 85 mm[Hg] Dr. Humberto Dsouza Work Phone: [facility] 01-06-2024 08:20-0500 Heart rate 87 /min Dr. Humberto Dsouza Work Phone: [facility] 01-06-2024 08:20-0500 Respiratory rate 16 /min Dr. Humberto Dsouza Work Phone: [facility] 01-06-2024 08:20-0500 SaO2% (BldA) [Mass fraction] 99 % Dr. Humberto Dsouza Work Phone: [facility] 01-06-2024 08:20-0500 Systolic blood pressure 121 mm[Hg] Dr. Humberto Dsouza Work Phone: [facility] 01-06-2024 07:04-0500 Body height 177.[address] Humberto Dsouza Work Phone: [facility] 01-06-2024 07:04-0500 Body mass index (BMI) [Ratio] 29.3 kg/m2 Dr. Humberto Dsouza Work Phone: [facility] 01-06-2024 07:04-0500 Body weight 92.[address] Humberto Dsouza Work Phone: [facility] 11-05-2023 16:00-0500 Body temperature 98.2 [degF] Dr. Humberto Dsouza Work Phone: [facility] 11-05-2023 16:00-0500 Diastolic blood pressure 87 mm[Hg] Dr. Humberto Dsouza Work Phone: [facility] 11-05-2023 16:00-0500 Heart rate 71 /min Dr. Humberto Dsouza Work Phone: [facility] 11-05-2023 16:00-0500 Respiratory rate 16 /min Dr. Humberto Dsouza Work Phone: [facility] 11-05-2023 16:00-0500 SaO2% (BldA) [Mass fraction] 95 % Dr. Humberto Dsouza Work Phone: [facility] 11-05-2023 16:00-0500 Systolic blood pressure 127 mm[Hg] Dr. Humberto Dsouza Work Phone: [facility] 11-05-2023 14:45-0500 SaO2% (BldA) [Mass fraction] 96 % Dr. Humberto Dsouza Work Phone: [facility] 11-05-2023 06:44-0500 Body temperature 97.8 [degF] Dr. Humberto Dsouza Work Phone: [facility] 11-05-2023 06:44-0500 Diastolic blood pressure 99 mm[Hg] Dr. Humberto Dsouza Work Phone: [facility] 11-05-2023 06:44-0500 Heart rate 73 /min Dr. Humberto Dsouza Work Phone: [facility] 11-05-2023 06:44-0500 Respiratory rate 18 /min Dr. Humberto Dsouza Work Phone: [facility] 11-05-2023 06:44-0500 Systolic blood pressure 146 mm[Hg] Dr. Humberto Dsouza Work Phone: [facility] 11-04-2023 12:10-0500 Inhaled oxygen flow rate 2 L/min Dr. Humberto Dsouza Work Phone: [facility] 11-03-2023 10:18-0500 Body height [address] Humberto Dsouza Work Phone: [facility] 11-03-2023 10:18-0500 Body weight 97.[address] Humberto Dsouza Work Phone: [facility] 11-02-2023 21:04-0500 Body mass index (BMI) [Ratio] 30.8 kg/m2 Dr. Humberto Dsouza Work Phone: [facility] 11-02-2023 18:00-0500 Body temperature 97.8 [degF] Dr. Humberto Dsouza Work Phone: [facility] 11-02-2023 18:00-0500 Diastolic blood pressure 64 mm[Hg] Dr. Humberto Dsouza Work Phone: [facility] 11-02-2023 18:00-0500 Heart rate 67 /min Dr. Humberto Dsouza Work Phone: [facility] 11-02-2023 18:00-0500 Respiratory rate 14 /min Dr. Humberto Dsouza Work Phone: [facility] 11-02-2023 18:00-0500 SaO2% (BldA) [Mass fraction] 99 % Dr. Humberto Dsouza Work Phone: [facility] 11-02-2023 18:00-0500 Systolic blood pressure 123 mm[Hg] Dr. Humberto Dsouza Work Phone: [facility] 11-02-2023 15:27-0500 Body height 177.[address] Humberto Dsouza Work Phone: [facility] 11-02-2023 15:27-0500 Body mass index (BMI) [Ratio] 30.9 kg/m2 Dr. Humberto Dsouza Work Phone: [facility] 11-02-2023 15:27-0500 Body weight 97.[address] Humberto Dsouza Work Phone: [facility] 10-31-2023 14:45-0500 Body height 179.07 cm Liana Ceron RN [facility] [employer] [facility] 10-31-2023 14:45-0500 Body mass index (BMI) [Ratio] 32.11 kg/m2 Liana Ceron RN [facility] [employer] [facility] [employer] [facility] 10-31-2023 14:45-0500 Body surface area Derived from formula 2.21 m2 Liana Ceron RN [facility] [facility] [employer] [facility] 10-31-2023 14:45-0500 Body temperature 98.5 [degF] Liana Ceron RN [facility] [employer] [facility] Comment on above: Method: Oral 10-31-2023 14:45-0500 Body weight 102.97 kg Liana Ceron RN [facility] [employer] [facility] [employer] [facility] [employer] [facility] 10-31-2023 14:45-0500 Diastolic blood pressure 98 mm[Hg] Liana Ceron RN [facility] [employer] [facility] [employer] [facility], [employer]. Comment on above: Patient Position: Sitting; Cuff Location : Left Arm; Cuff Size: Standard 10-31-2023 14:45-0500 Heart rate 101 /min Liana Ceron RN [facility].; [facility] Comment on above: Pattern: Regular 10-31-2023 14:45-0500 Inhaled oxygen concentration 21 % Liana Ceron RN [facility], [facility].; [facility] Comment on above: Room air 10-31-2023 14:45-0500 SaO2% (BldA) [Mass fraction] 97 % Liana Ceron RN [facility], [facility].; [facility] 10-31-2023 14:45-0500 Systolic blood pressure 142 mm[Hg] Liana Ceron RN [facility].; [facility] Comment on above: Patient Position: Sitting; Cuff Location : Left Arm; Cuff Size: Standard 10-08-2021 15:43-0500 Body height 179.07 cm Bri Bucio RN [facility], [facility].; [facility] 10-08-2021 15:43-0500 Body mass index (BMI) [Ratio] 31.12 kg/m2 Bri Bucio RN [facility], [facility].; [facility] 10-08-2021 15:43-0500 Body surface area Derived from formula 2.19 m2 Bri Bucio RN [facility].; [facility] 10-08-2021 15:43-0500 Body weight 99.79 kg Bri Bucio RN [facility], [facility].; [facility] 10-08-2021 15:43-0500 Diastolic blood pressure 96 mm[Hg] Bri Bucio RN [facility], [facility].; [facility] [employer] [facility] Comment on above: Patient Position: Sitting; Cuff Location : Left Arm; Cuff Size: Large 10-08-2021 15:43-0500 Heart rate 89 /min Bri Bucio RN [facility], [facility].; [facility] [employer] [facility] Comment on above: Pattern: Regular 10-08-2021 15:43-0500 Systolic blood pressure 144 mm[Hg] Bri Bucio RN [facility] [employer] [facility] Comment on above: Patient Position: Sitting; Cuff Location : Left Arm; Cuff Size: Large 09-09-2017 16:06-0400 Body height 179.07 cm Bri Bucio RN [facility], [facility].; [facility] [employer] [facility] 09-09-2017 16:06-0400 Body mass index (BMI) [Ratio] 28.8 kg/m2 Bri Bucio RN [facility] [employer] [facility] 09-09-2017 16:06-0400 Body surface area Derived from formula 2.11 m2 Bri Bucio RN [facility] [employer] [facility] [employer] [facility] 09-09-2017 16:06-0400 Body weight 92.35 kg Bri Bucio RN [facility].; [facility] [employer] [facility] 09-09-2017 16:06-0400 Diastolic blood pressure 77 mm[Hg] Bri Bucio RN [facility] [employer] [facility] Comment on above: Patient Position: Sitting; Cuff Location : Left Arm; Cuff Size: Large 09-09-2017 16:06-0400 Heart rate 94 /min Bri Bucio RN [facility] [employer] [facility] Comment on above: Pattern: Regular 09-09-2017 16:06-0400 Systolic blood pressure 128 mm[Hg] Bri Bucio RN [facility] [employer] [facility] Comment on above: Patient Position: Sitting; Cuff Location : Left Arm; Cuff Size: Large 09-02-2017 13:23-0400 Body height 178.44 cm Madonna Horner [facility] [employer] [facility] 09-02-2017 13:23-0400 Body mass index (BMI) [Ratio] 29.06 kg/m2 Madonna Evens Maldonado [facility] [employer] [facility] 09-02-2017 13:23-0400 Body surface area Derived from formula 2.11 m2 Madonna Maldonado [facility] [employer] [facility] [employer] [facility] 09-02-2017 13:23-0400 Body weight 92.53 kg Madonna Wilcox [facility] [employer] [facility] [employer] [facility] 09-02-2017 13:23-0400 Diastolic blood pressure 81 mm[Hg] Madonna Wilcox [facility].; [employer] [facility] [employer] [facility] Comment on above: Patient Position: Sitting; Cuff Location : Left Arm; Cuff Size: Standard 09-02-2017 13:23-0400 Heart rate 92 /min Madonna Maldonado [facility] [employer] [facility] [employer] [facility] Comment on above: Pattern: Regular 09-02-2017 13:23-0400 Systolic blood pressure 147 mm[Hg] Madonna Horner [facility] [employer] [facility] [employer] [facility] Comment on above: Patient Position: Sitting; Cuff Location : Left Arm; Cuff Size: Standard 03-19-2014 16:05-0400 Body height 179.07 cm Bri Bucio RN [facility] [employer] [facility] [place] [facility] [employer] [facility] 03-19-2014 16:05-0400 Body mass index (BMI) [Ratio] 32.18 kg/m2 rBi Bucio RN [facility] [employer] [facility] [employer] [facility] 03-19-2014 16:05-0400 Body surface area Derived from formula 2.22 m2 Bri Bucio RN [facility] [employer] [facility] [place] [facility] [employer] [facility] 03-19-2014 16:05-0400 Body weight 103.19 kg Bri Bucio RN [facility] [employer] [facility] [employer] [facility] 03-19-2014 16:05-0400 Diastolic blood pressure 88 mm[Hg] Bri Bucio RN [facility] [employer] [facility] Comment on above: Patient Position: Sitting; Cuff Location : Left Arm; Cuff Size: Large 03-19-2014 16:05-0400 Heart rate 99 /min Bri Bucio RN [employer] [facility]. Comment on above: Pattern: Regular 03-19-2014 16:05-0400 Systolic blood pressure 132 mm[Hg] Bri Bucio RN [facility] [employer] [facility], [employer]. Comment on above: Patient Position: Sitting; Cuff Location : Left Arm; Cuff Size: Large 02-26-2014 13:56-0400 Body height 179.07 cm PHILLIP Maya [employer] Work Phone: [facility] [employer] [place] [facility] [employer] [facility]. 02-26-2014 13:56-0400 Body mass index (BMI) [Ratio] 32.11 kg/m2 [employer] Work Phone: [employer] [facility] [employer] 02-26-2014 13:56-0400 Body surface area Derived from formula 2.21 m2 [employer] Work Phone: [employer] [facility] [employer]. 02-26-2014 13:56-0400 Body weight 102.97 kg PHILLIP Maya MedicalP-C Work Phone: [employer] [facility] [employer]. 02-26-2014 13:56-0400 Diastolic blood pressure 96 mm[Hg] [place] ELEVATOR ERECTOR-C Work Phone: [employer] [facility] [employer]. Comment on above: Patient Position: Sitting; Cuff Location : Left Arm; Cuff Size: Large 02-26-2014 13:56-0400 Heart rate 103 /min PHILLIP zealot networkER ELEVATOR ERECTOR-C Work Phone: [employer] [facility] [employer]. Comment on above: Pattern: Regular 02-26-2014 13:56-0400 Systolic blood pressure 160 mm[Hg] PHILLIP REAER ELEVATOR ERECTOR-C Work Phone: [facility] [employer] [facility] Ill[facility]; [employer] [facility] [employer] [facility]. Comment on above: Patient Position: Sitting; Cuff Location : Left Arm; Cuff Size: Large 06-12-2012 15:02-0400 Body height 179.07 cm PHILLIP CISSE ELEVATOR ERECTOR-C Work Phone: [facility] [employer] [facility].; [employer] [facility] [employer] [facility] 06-12-2012 15:02-0400 Body mass index (BMI) [Ratio] 30.41 kg/m2 PHILLIP CISSE ELEVATOR ERECTOR-C Work Phone: [facility] [employer] [facility].; [facility] [place] [facility] [employer] [facility]. 06-12-2012 15:02-0400 Body surface area Derived from formula 2.16 m2 PHILLIP GARCIAHome InnsERIKA ELEVATOR ERECTOR-C Work Phone: [facility] [employer] [facility] Ill[facility]k; [employer] [facility] [employer] [facility]. 06-12-2012 15:02-0400 Body temperature 98.7 [degF] PHILLIP REAER ELEVATOR ERECTOR-C Work Phone: [facility] [employer] [facility] Ill[facility]k; [employer] [facility] [employer] [facility]. Comment on above: Method: Oral 06-12-2012 15:02-0400 Body weight 97.52 kg PHILLIP REAER ELEVATOR ERECTOR-C Work Phone: [facility] [employer] [facility] IllTour Desk; [employer] [facility] [employer] [facility]. 06-12-2012 15:02-0400 Diastolic blood pressure 91 mm[Hg] PHILLIP REAER ELEVATOR ERECTOR-C Work Phone: [facility] [employer] [facility] Ill[facility] Desk; [employer] [facility] [employer]. Comment on above: Patient Position: Sitting; Cuff Location : Left Arm; Cuff Size: Standard 06-12-2012 15:02-0400 Heart rate 88 /min PHILLIP GARCIATTER ELEVATOR ERECTOR-C Work Phone: [facility] Hospital[facility]. Comment on above: Pattern: Regular 06-12-2012 15:02-0400 Systolic blood pressure 144 mm[Hg] PHILLIP CISSE ELEVATOR ERECTOR-C Work Phone: [facility]. Comment on above: Patient Position: Sitting; Cuff Location : Left Arm; Cuff Size: Standard Encounters Encounter Date Encounter Type Care Provider Facility Start: 02-20-2025 Emergency department [facility] Start: 01-06-2024 End: 01-06-2024 ambulatory Humberto Dsouza Facility:[facility] Start: 01-06-2024 Non-patient / Non-visit Dr. Kelly Dsouza Work Phone: [facility] Start: 01-06-2024 End: 01-06-2024 Admission to same day surgery center Dr. Humberto Dsouza Work Phone: [facility] Work Phone: Start: 01-06-2024 End: 01-06-[address] Humberto Dsouza Work Phone: [facility] Work Phone: Start: 11-15-2023 End: 11-15-2023 ambulatory Humberto Dsouza Facility:[facility] Start: 11-15-2023 End: 11-15-[address] Humberto Dsouza Work Phone: [facility] Work Phone: Start: 11-10-2023 End: 11-10-2023 ambulatory Humberto Dsouza Facility:[facility] Start: 11-10-2023 End: 11-10-[address] Humberto Dsouza Work Phone: [facility] Work Phone: Start: 11-05-2023 Non-patient / Non-visit Dr. Kelly Dsouza Work Phone: [facility] Start: 11-04-2023 Non-patient / Non-visit Dr. Kelly Dsouza Work Phone: [facility] Start: 11-03-2023 Non-patient / Non-visit Dr. Kelly Dsouza Work Phone: [facility] Start: 11-02-2023 End: 11-05-2023 Evaluation and management of inpatient Nehemias Beauchamp Facility:[facility] Start: 11-02-2023 ambulatory Nehemias Beauchamp [facility]: [facility] Start: 11-02-2023 End: 11-05-2023 Evaluation and management of inpatient Dr. Humbreto Dsouza Work Phone: [facility] 3 Work Phone: Start: 11-02-2023 Non-patient / Non-visit Dr. Kelly Dsouza Work Phone: [facility] Start: 11-02-2023 End: 11-02-2023 Results Review PHILLIP CISSE ELEVATOR ERECTOR-C Work Phone: [facility] Start: 10-31-2023 End: 11-05-[address] HUMBERTO DSOUZA MD Facility:A Start: 10-31-2023 End: 10-31-2023 Office outpatient visit 15 minutes PHILLIP CISSE ELEVATOR ERECTOR-C Work Phone: [facility]3] [employer] [facility] Ill[facility]k Start: 10-08-2021 End: 10-08-2021 Office outpatient visit 15 minutes PHILLIP CISSE ELEVATOR ERECTOR-C Work Phone: [facility]. Start: 12-08-2018 End: 12-08-2018 Patient encounter procedure BOB OSULLIVAN [facility] Start: 11-06-2018 Encounter for other preprocedural examination [facility] Start: 11-06-2018 End: 11-06-2018 Patient encounter procedure RATNAAMI LIRIANO [facility] Start: 09-09-2017 End: 09-09-2017 Office outpatient visit 10 minutes PHILLIP CISSE ELEVATOR ERECTOR-C Work Phone: [facility] Start: 09-02-2017 End: 09-02-2017 Office outpatient visit 25 minutes PHILLIP CISSE ELEVATOR ERECTOR-C Work Phone: [facility] Start: 04-02-2014 End: 04-02-2014 Follow-up encounter PHILLIP CISSE ELEVATOR ERECTOR-C Work Phone: [facility] Start: 04-01-2014 End: 04-01-2014 Lab Only PHILLIP CISSE ELEVATOR ERECTOR-C Work Phone: [facility]. Start: 03-19-2014 End: 03-19-2014 Medication Refill/Order PHILLIP CISSE ELEVATOR ERECTOR-C Work Phone: [facility]. Start: 03-19-2014 End: 03-19-2014 Patient encounter procedure PHILLIP CISSE ELEVATOR ERECTOR-C Work Phone: [facility] [employer] [facility]. Start: 02-26-2014 End: 02-26-2014 Patient encounter procedure PHILLIP CISSE ELEVATOR ERECTOR-C Work Phone: [facility]. Start: 06-12-2012 End: 06-12-2012 Patient encounter procedure PHILLIP CISSE ELEVATOR ERECTOR-C Work Phone: [facility] Encounter for other preprocedural examination [facility] Procedures Date Procedure Procedure Detail Performing Clinician Start: 01-06-[address] Ryann Dsouza Work Phone: Start: 11-04-[address] Humberto Dsouza Work Phone: Start: 11-04-2023 Investigation of transfusion reaction Dr. Humberto Dsouza Work Phone: Start: 11-04-2023 Microbial culture, routine Dr. Humberto Dsouza Work Phone: Start: 11-04-[address] Humberto Dsouza Work Phone: Start: 11-04-2023 Computed tomography of abdomen and pelvis with contrast Dr. 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 Plan of Treatment Date Care Activity Detail Author Start: 01-06-2024 Patient discharge [facility] Start: 11-05-2023 Patient discharge [facility] Start: 11-04-2023 Anaerobic Culture Anaerobic Culture [facility] Start: 11-04-2023 Microbial culture, routine Wound Culture [facility] Start: 11-04-2023 Oxygen therapy [facility] Start: 11-04-2023 Vital signs measurements [facility] Start: 11-04-2023 Abdomen/Pelvis WITH Contrast Abdomen/Pelvis WITH Contrast [facility] Start: 11-04-2023 CT Abdomen and Pelvis W contrast IV [facility] Start: 11-03-2023 Blood chemistry [facility] Start: 11-03-2023 [facility] Start: 11-02-2023 Following clinical pathway protocol [facility] Start: 11-02-2023 Admission procedure [facility] Start: 11-02-2023 Hospital admission, emergency, from emergency room, medical nature [facility] Start: 10-31-2023 Ct abdomen & pelvis w/contrast material CT ABDOMEN AND PELVIS WITH IV AND ORAL CONTRAST (06535) Start: 31-Oct-2023 Intent [facility]; [facility]. Start: 05-16-2014 Assay of thyroid stimulating hormone tsh TSH (THYROID STIMULATING HORMONE) (00626) Start: 16-May-2014 21:10 Request [facility]. Start: 02-26-2014 Patient Education Dietary Approaches to Stop Hypertension (The DASH Diet): blood pressure Indication: Hypertension Start: 26-Feb-2014 Instruction Type: Patient Education [facility]. Anion gap measurement [facility] Bacteria identified in Unspecified specimen by Anaerobe culture [facility] BUN/Creatinine ratio [facility] Calcium [Mass/volume ] in Serum or Plasma [facility] Carbon dioxide, tota l [Moles/volume] in Serum or Plasma [facility] Chloride [Moles/volu me] in Serum or Plasma [facility] Colonoscopy [facility] Creatinine [Moles/vo lume] in Serum or Plasma [facility] Glucose [Mass/volume ] in Serum or Plasma [facility] Hematocrit [Volume Fraction] of Blood [facility] Hemoglobin [Mass/vol ume] in Blood [facility] Leukocytes [#/volume ] in Blood [facility] Magnesium [Mass/volu me] in Serum or Plasma [facility] Mean corpuscular hemoglobin concentration determination [facility] Mean corpuscular hemoglobin determination [facility] Measurement of renal function [facility] Neutrophil count [facility] Neutrophil percent differential count [facility] Patient Education Jan King Drain Tube Dc Post Op Drain Emptying Steps [facility] Work Phone: Patient referral [facility] Work Phone: Platelets [#/volume] in Blood [facility] Potassium [Moles/vol ume] in Serum or Plasma [facility] Red blood cell count [facility] Red cell distributio n width determination [facility] Sodium [Moles/volume ] in Serum or Plasma [facility] Urea nitrogen [Mass/volume] in Serum or Plasma [facility] Immunizations Immunization Date Immunization Notes Care Provider Tanvir james 04-21-2020 Covid (Moderna) Dr. Humberto Dsouza Work Phone: [facility] 03-21-2020 Covid (Moderna) Dr. Humberto Dsouza Work Phone: [facility] influenza virus vaccine, unspecified formulation PHILLIP CISSE ELEVATOR ERECTOR-C Work Phone: [facility]. Comment on above: Refused. 10/31/2023 Payers Date Payer Category Payer Self-pay 2023 Unknown [id number] 2017 Unknown [id number] 1979 Unknown [id number] 2.16.8 [id number] 1979 Unknown [id number] 2.16.8 [id number] 1979 Unknown [id number] 2.16.8 [id number] 1979 Unknown [id number] 2.16.8 [id number] Unknown [facility] [id number] Unknown [employer] Unknown [id number] 2.16.8 [id number] Unknown [id number] 2.16.8 [id number] Unknown [id number] 2.16.8 [id number] Unknown [id number] 2.16.8 [id number] Unknown [id number] 2.16.8 [id number] Unknown [id number] 2.16.8 [id number] Unknown [id number] 2.16.8 [id number] Unknown [id number] 2.16.8 [id number] Unknown [id number] 2.16.8 [id number] Social History Date Type Detail Facility Start: 11-02-2023 End: 11-03-2023 Tobacco smoking status MNIS Unknown if ever smoked [facility] Start: 1980 Sex Assigned At Male W [facility] Alcohol Use: Alcohol Use: ; Y es for Alcohol Use. 1 to 7 drinks per week. [facility] Current Work/Study Status Current Work/Study Status [facility] Tobacco use: Tobacco use: ; C urrent some day smoker. [facility] Occasional tobac co smoker [facility] Work Phone: [facility] Work Phone: Goals Date Patient Goal Desired Activity /State Functional Status Date Assessment Result Facility 11-05-2023 Functional status Bathroom Privilege [facility] Work Phone: 11-03-2023 Functional status Tolerates Activity Well [facility] Work Phone: Mental Status Date Assessment Result Facility 01-06-2024 Cognitive function Voice/Name [facility] Work Phone: 01-06-2024 Cognitive function Patient Orien tation Person;Place;Time [facility] Work Phone: 11-04-2023 Cognitive function Voice/Name [facility] Work Phone: Clinical Notes 11-02-2023 to 01-06-2024 Note Date & Type Note Facility 01-06-2024 Note [facility] Medical Records Department [address] [place] [address] History Physical Exam 01/06/24 0728 MR#: [id number] Acct: [id number] Name: JOE CLARK Rep #: [id number] : 1980 43 From: Nehemias Beauchamp MD PCP: Dr. Humberto Dsouza MD Status:[facility] Location: [place] [address] History and Physical Date of Admission: 01/06/24 OFFICE VISIT Date of Service: 11/15/23 MR#: [id number] Acct: [id number] Name: JOE CLARK Rep #: [id number] : 1980 Provider: Dr. Nehemias Beauchamp MD Age/Sex: 43/M Location: [facility] Status: Signed Intake Vital Signs 11/03/2310:18 Height 5 ft 10.08 in Intake Visit Reasons: DIVERTICULITIS 11/05 Chief Complaint: diverticulitis 11/05 Is patient in pain?: No Allergies amoxicillin Allergy (Intermediate, Verified 11/15/23 12:21) Hives Medications acetaminophen 500 mg tablet 500 mg PO Q4H PRN PRN Pain Score 1-10 #0 tabs 11/05/23 [Rx Confirmed 11/15/23] ciprofloxacin HCl 500 mg tablet (Cipro) 500 mg PO BID 10 days #20 tabs 11/05/23 [Rx Confirmed 11/15/23] metronidazole 500 mg tablet 500 mg PO Q8H 10 days #30 tabs 11/05/23 [Rx Confirmed 11/15/23] PFSH Surgical History History of right hip replacement Social History Smoking Status: Light Smoker (<10/day) alcohol intake: current alcohol intake frequency: holidays/special occasions only substance use type: does not use HPI HPI HPI: Patient is a 43-year-old male with history of colonic diverticulitis and diverticular abscess status post percutaneous drainage. He follows up from 11/10/2023 clinic visit and presents for possible drain discontinuation. He states that he has done well following her last visit and has not had any output from his drain. He denies any fevers or chills Below is recapitulated from patient's prior visit for ease of review: Patient follows up from recent hospitalization at due to 11/05/2023 and included percutaneous drainage via CT guidance of a peritoneal abscess secondary to complicated diverticulitis. Today presents with his and reports that he is overall doing well. In fact, he reports that he is returned to work without difficulty. He provides a drain log that suggests every day outside of 2023 he has had 5 mL or less drainage. He describes the output is generally light brown with no smell. He denies any fevers or chills. He continues on a full liquid diet but has had a strong appetite. He confirms that his bowels been regular and unremarkable. [facility] Musculoskeletal: Yes arthritis Gastro Gastrointestinal: Yes abdominal pain Exam Const General: cooperative and comfortable Resp Effort Inspection: normal respiratory effort GI Other: Patient's abdomen is nondistended, soft, nontender to palpation. He has no output from his TOMASA drain and the drainage in the tubing is simply clear yellow. Assessment and Plan Assessment and Plan (1) Colonic diverticular abscess: Status: Acute Comment: This is a 43-year-old male who makes his second outpatient visit following percutaneous drain placement during inpatient stay which concluded 11/05/2023. Overall he appears continue to be doing well as an outpatient. He has just 1 more day of antibiotics. I have instructed him to then begin use of a probiotic. His drain was pulled successfully during today's visit and was well-tolerated. I have encouraged him to gradually go up on his diet???pain specific attention to incorporating protein. I have given him alarm symptoms to be on the look out for, but have stated that we will plan to begin the 6-week count down to a diagnostic colonoscopy. Plan: ??? Complete antibiotic course ??? Begin probiotic ??? Patient continue more of a soft low residue diet with inclusion of foods such as mashed potatoes, eggs, ground lean meats,? Remove drain site dressing in 48 hours then begin showering ??? Diagnostic colonoscopy in 6 weeks I have examined the patient and the H P has been reviewed. There are no clinical changes since date of exam. Patient reports that he has had no further abdominal pain apart from some cramping related to his bowel prep. He confirms that he completed his prep and that his output is now clear. He states that he is given some thought to segmental colectomy for addressing his diverticular disease but is not yet decided. He denies any further questions related to procedure after a brief overview was reviewed. Therefore we will proceed to the endoscopy suite for diagnostic colonoscopy as discussed in greater detail above. 01/06/24 0729 Cosigner Sig (more content not included)... [facility] 01-06-2024 Procedure note [facility] 01-06-2024 Procedure note [facility] 11-05-2023 Note [facility] Medical Records Department [address] [place] [address] Discharge Summary 11/05/23 1508 MR#: [id number] Acct: [id number] Name: JOE CLARK Rep #: [id number] : 1980 42 From: Alcides Diaz MD PCP: Dr. Humberto Dsouza MD Status:ADM IN [facility] Providers Date of Admission: 11/02/23 Primary Care Physician: Dr. Humberto Dsouza MD Reason For Visit: COMPLICATED DIVERTICULITIS Diagnosis Discharge Diagnosis (1) Colonic diverticular abscess: Status: Acute Code(s): K57.20 - Diverticulitis of large intestine with perforation and abscess without bleeding Plan: Patient has diverticulitis with diverticular abscess. He had a drain placed yesterday. His white count did rise slightly but this may be due to having the drain placed. He is not complaining of any abdominal pain and he is having bowel function. I will advance him to a full liquid diet. If he is doing well this afternoon I may discharge him home on a full liquid diet and oral antibiotics versus keeping him for 1 more day and rechecking labs in the morning. Alcides Diaz MD Pager: [facility] [address] [place] [address], [address] [place] [address] Office: Medications at Discharge Home Medications acetaminophen 500 mg tablet 500 mg PO Q4H PRN PRN Pain Score 1-10 #0 tabs 11/05/23 ciprofloxacin HCl 500 mg tablet (Cipro) 500 mg PO BID 10 days #20 tabs 11/05/23 metronidazole 500 mg tablet 500 mg PO Q8H 10 days #30 tabs 11/05/23 Hospital Course Summary of Care Provided Hospital Course: Patient was transferred here with perforated diverticulitis with abscess. He was kept on antibiotics and 2 days later a repeat CT was performed. That same day a percutaneous drain was placed. Patient is doing well and tolerating diet and having bowel movements and I will discharge him home on full liquid diet. Weight / BMI Weight Weight: 215 lb 6.266 oz Body Mass Index (BMI) 30.8 ABG / Lab / Microbiology Data 11/05/23 05:38 11/05/23 05:38 Laboratory: Laboratory Results - last 24 hr 11/05/23 05:38: WBC 18.0 H, RBC 4.78, Hgb 14.5, Hct 42.9, MCV 89.7, MCH 30.3, MCHC 33.8, RDW Std Deviation 48.1 H, RDW Coeff of Hayden 14.5, Plt Count 408, MPV 10.2, Neut % (Auto) Not Reportable, Absolute Neuts (auto) 14.9 H, Absolute Lymphs (auto) 1.62, Total Counted 100, Neutrophils % (Manual) 80 H, Band Neutrophils % 3, Lymphocytes % (Manual) 9 L, Monocytes % (Manual) 5, Myelocytes % 3 H, Diff Path Review May foll, Platelet Estimate ADEQUATE, RBC Morphology NORM C+C, Sodium 135 L, Potassium 3.4 L, Chloride 103, Carbon Dioxide 27.0, Anion Gap 5, BUN 7, Creatinine 0.74, Estim Creat Clear Calc 132.90, Est GFR (MDRD) Af Amer 148, Est GFR (MDRD) Non-Af 122, BUN/Creatinine Ratio 9.5 L , Glucose 87, Calcium 8.2 L, Phosphorus 2.9, Magnesium 2.4 Microbiology: Microbiology 11/04/23 12:10 Wound Abcess - Abdominal Gram Stain - Final 12/15/23 12:10 Wound Abcess - Abdominal Wound Culture - Preliminary GNR lactose log check scaler Gram positive organism D/C Instructions Discharge Diet: - (Full liquid diet) Discharge Activity: Return to Normal Activity and May Drive Call your doctor if your incision/area has: Increased Pain/ Swelling Call your doctor if you observe: Fever of 101 or Higher and Inability to have a bowel movement Additional Instructions: Empty drain as needed and record daily output amount Please Follow Up With: Nehemias Beauchamp MD When: call tuesday to make follow up appt [phone] Meaningful Use Info Meaningful Use Diagnoses (Choose all that apply): None applicable Discharge Plan Admission Admit Date/Time: 11/02/23 17:27 Attending Provider: Nehemias Beauchamp Primary Care Provider: Humberto Dsouza Instructions Patient Instructions: Jan King Drain Tube Dc, Post Op Drain Emptying Steps Discharge Orders/Prescriptions Prescriptions: New acetaminophen 500 mg Tablet 500 mg PO Q4H PRN PRN (Reason: Pain Score 1-10) Qty: 0 0RF ciprofloxacin HCl [Cipro] 500 mg tablet 500 mg PO BID 10 Days Qty: 20 0RF metronidazole 500 mg tablet 500 mg PO Q8H 10 Days Qty: 30 0RF Referrals / Follow Up: Humberto Dsouza MD [Primary Care Provider] - Disposition Disposition (needs filled in before D/C Order can be placed): Home, Self Care 11/05/23 1512 Cosigner Signature (if applicable): CC: Dr. Alcides Diaz MD; Dr. Humberto Dsouza MD Signed [facility] 11-05-2023 Progress note Note Date/Time November 05, 2023 7:57am [facility] Medical Records Department [address] [place] [address] Progress Note - Surgery 11/05/23 0755 MR#: [id number] Acct: [id number] Name: JOE CLARK Rep #:[id number] : 1980 42 From: Alcides ram MD PCP: Dr. Humberto Dsouza MD Status:ADM I N Location: [place] [address] Subjective Subjective Patient reports no abdominal pain this morning. He had a bowel movement this morning. He denies any nausea or vomiting. He denies any fevers or chills. Hefeels well Objective Data Objective Data Vital Signs: Vital Signs Temp Pulse Resp BP Pulse Ox O2 Del Method O2 Flow Rate 97.8 F 73 18 146/99 H 96 Room Air 2 11/05/23 06:44 11/05/23 06:44 11/05/23 06:44 11/05/23 06:44 11/05/23 06:44 11/05/23 06:44 11/04/23 12:10 Oxygen Flow Rate (L/min) 2 Oxygen Delivery Method Room Air Weight: 215 lb 6.266 oz Body Mass Index (BMI) 30.8 Intake & Output: Intake and Output for Last 24 Hours 11/03/23 11/04/23 11/05/23 23:59 23:59 23:59 Intake Total 3186.67 / 4186.67 4160 / 4160 650 / 650 Output Total 360 / 360 / 34 Balance 2826.67 / 3826.67 4134 / 4126 634 / 634 Lab / Micro Data 11/05/23 05:38 11/05/23 05:38 Labs: Laboratory Results - last 24 hr 11/03/23 06:56: Diff Path Review Reviewed 11/04/23 07:00: WBC 15.3 H, RBC 4.60, Hgb 13.9, Hct 41.1, MCV 89.3, MCH 30.2, MCHC 33.8, RDW Std Deviation 47.0 H, RDW Coeff of Hayden 14.5, Plt Count 377, MPV 10.7, Neut % (Auto) Not Reportable, Absolute Neuts (auto) 11.1 H, Absolute Lymphs (auto) 2.60, Total Counted 100, Neutrophils % (Manual) 71 H, Band Neutrophils % 2, Lymphocytes % (Manual) 17 L, Monocytes % (Manual) 2, Eosinophils % (Manual) 1, Metamyelocytes % 3 H, Myelocytes % 4 H, Diff Path Review May , Platelet Estimate ADEQUATE, RBC Morphology NORM C+C, Sodium 134L, Potassium 3.2 L, Chloride 99, Carbon Dioxide 29.0, Anion Gap 6, BUN 8, Creatinine 0.76, Estim Creat Clear Calc 129.40, Est GFR (MDRD) Af Amer 144, Est GFR (MDRD) Non-Af 119, BUN/Creatinine Ratio 10.5, Glucose 90, Calcium 8.1 L, Phosphorus 2.9, Magnesium 2.5 11/04/23 08:41: PT 14.1, INR 1.1, APTT 33.2 11/05/23 05:38: WBC 18.0 H, RBC 4.78, Hgb 14.5, Hct 42.9, MCV 89.7, MCH 30.3, MCHC 33.8, RDW Std Deviation 48.1 H, RDW Coeff of Hayden 14.5, Plt Count 408, MPV 10.2, Neut % (Auto) Not Reportable, Sodium 135 L, Potassium 3.4 L, Chloride 103,Carbon Dioxide 27.0, Anion Gap 5, BUN 7, Creatinine 0.74, Estim Creat Clear Gqwt595.90, Est GFR (MDRD) Af Amer 148, Est GFR (MDRD) Non-Af 122, BUN/Creatinine Ratio 9.5 L, Glucose 87, Calcium 8.2 L, Phosphorus 2.9, Magnesium 2.4 Micro: Microbiology 11/04/23 12:10 Wound Abcess - Abdominal Gram Stain - Final Radiography Diagnostic Testing: Radiology Impression Abdomen/Pelvis CT 11/04/23 07:00 IMPRESSION: undefined ADDENDUM: 11/04/23 0822 IMPRESSION: undefined Abscess Drainage CT 11/04/23 08:24 IMPRESSION: 1. CT directed drainage of a fluid /abscess collection using CT image guidance and image documentation as described. 2. Conscious Sedation protocol utilized with independent monitoring Electronically Signed: Lobo Schofield MD at 13:50 EST , Physical Exam Const oriented x3 and no apparent distress Cardio regular rate and regular rhythm GI soft to palpation and non-tender Assessment & Plan Assessment/Plan (1) Colonic diverticular abscess: PLAN: Patient has diverticulitis with diverticular abscess. He had a drain placed yesterday. His white count did rise slightly but this may be due to having the drain placed. He is not complaining of any abdominal pain and he is having bowel function. I will advance him to a full liquid diet. If he is doing well this afternoon I may discharge him home on a full liquid diet and oral antibiotics versus keeping him for 1 more day and rechecking labs in the morning. Alcides Diaz MD Pager: [facility] [address], [address] [place] [address] Office: 11/05/23 0757 <Electronically signed by Alcides Diaz MD> Cosigner Signature (if applicable): CC: ~ Signed [facility] Work Phone: 1(779) 412-467312-15-2023 Progress note Author Nehemias Beauchamp [facility] November 04, 2023 10:00am Note Date/Time November 04, 2023 8:24am [facility] Medical Records Department [address] [place] [address] Progress Note - Surgery 11/04/23823 MR#: [id number] Acct: [id number] Name: JOE CLARK Rep #:[id number] : 1980 42 From: Nehemias Brandt PCP: Dr. Humberto Dsouza MD Status:ADM I N Location: [place] [address] Subjective Subjective Patient seen and examined during AM rounds. He reports no acute events overnight. He states that his abdominal pain is about as it was yesterday. Objective Data Objective Data Vital Signs: Vital Signs Temp Pulse Resp BP Pulse Ox O2 Del Method 98.0 F 73 16 131/88 H 98 Room Air 11/04/23 04:23 11/04/23 04:23 11/04/23 04:23 11/04/23 04:23 11/04/23 04:23 11/04/23 04:23 Oxygen Delivery Method Room Air Weight: 215 lb 6.266 oz Body Mass Index (BMI) 30.8 Intake & Output: Intake and Output for Last 24 Hours 11/02/23 11/03/23 11/04/23 23:59 23:59 23:59 Intake Total 1400 / 1400 3186.67 / 4186.67 2200 / 2200 Output Total 360 / 360 Balance 1400 / 1400 2826.67 / 3826.67 2200 / 2200 Lab / Micro Data 11/04/23 07:00 11/04/23 07:00 Labs: Laboratory Results - last 24 hr 11/02/23 15:40: Diff Path Review Reviewed 11/03/23 06:56: Absolute Neuts (auto) 14.2 H, Absolute Lymphs (auto) 2.79, TotalCounted 100, Neutrophils % (Manual) 73 H, Band Neutrophils % 4, Lymphocytes % (Manual) 15 L, Monocytes % (Manual) 4, Eosinophils % (Manual) 1, Metamyelocytes % 1, Myelocytes % 2 H, Diff Path Review May foll, Platelet Estimate ADEQUATE, RBC Morphology NORM C+C 11/04/23 07:00: WBC 15.3 H, RBC 4.60, Hgb 13.9, Hct 41.1, MCV 89.3, MCH 30.2, MCHC 33.8, RDW Std Deviation 47.0 H, RDW Coeff of Hayden 14.5, Plt Count 377, MPV 10.7, Neut % (Auto) Not Reportable Radiography Diagnostic Testing: Radiology Impression Abdomen/Pelvis CT 11/04/23 07:00 IMPRESSION: undefined ADDENDUM: 11/04/23821 IMPRESSION: undefined Physical Exam Const oriented x3 and no apparent distress Resp normal respiratory effort GI GI Narrative: Mild tenderness in the mid to lower abdomen without guarding. Umbilical hernia remains stable in appearance. Otherwise unremarkable abdominal exam. Assessment & Plan Assessment/Plan (1) Colonic diverticular abscess: (2) Sigmoid diverticulitis: PLAN: Plan This is a 42-year-old male with no significant past medical history presents with a weeklong history of constipation and crampy abdominal pain. He had an outpatient CT scan performed today through an outside hospital that showed evidence of complicated diverticulitis. He was admitted here on 11/02/2023 after he was referred for emergency room evaluation upon reporting of this CT imaging. Overnight he had an uneventful course and CT imaging was repeated thismorning. The area in question from his prior scan. More consolidated and measures 6 x 6 cm. I believed identified a window between patient's small boweland colon and this was confirmed by radiology so he will now proceed to the radiology suite for CT-guided percutaneous drainage of this abscess. ? Continue to trend a.m. labs ? Follow-up abscess cultures ? Continue empiric Cipro and Flagyl ? Patient okay for clear liquid diet with Ensure clears Charges/Coding Visit Charges Inpatient E&M: 77665 Subs Hosp L2 11/04/23 1000 <Electronically signed by Nehemias Beauchamp MD> Cosigner Signature (if applicable): CC: ~ Signed [facility] Work Phone: 1(701) 159-305312-14-2023 Progress note Author Nehemias Beauchamp [facility] November 03, 2023 7:24am Note Date/Time November 03, 2023 7:24am [facility] Medical Records Department [address] [place] [address] Progress Note - Surgery 11/03/23721 MR#: [id number] Acct: [id number] Name: JOE CLARK Rep #:[id number] : 1980 42 From: Nehemias Brandt PCP: Dr. Humberto Dsouza MD Status:ADM I N Location: [place] [address] Subjective Subjective Patient seen and examined during AM rounds. He reports that he feels somewhat better and that this is the best he has felt in over a week. He confirms 3 additional bowel movements overnight. He denies any difficulty with urination. Objective Data Objective Data Vital Signs: Vital Signs Temp Pulse Resp BP Pulse Ox O2 Del Method 98.1 F 70 18 135/98 H 95 Room Air 11/03/23 06:23 11/03/23 06:23 11/03/23 06:23 11/03/23 06:23 11/03/23 06:23 11/03/23 06:23 Oxygen Delivery Method Room Air Weight: 215 lb 6.266 oz Body Mass Index (BMI) 30.8 Intake & Output: Intake and Output for Last 24 Hours 11/01/23 11/02/23 11/03/23 23:59 23:59 23:59 Intake Total 1400 / 1400 1200 / 1200 Balance 1400 / 1400 1200 / 1200 Lab / Micro Data 11/02/23 15:40 11/02/23 15:40 Labs: Laboratory Results - last 24 hr 11/02/23 15:40: WBC 28.2 H, RBC 4.95, Hgb 15.0, Hct 44.0, MCV 88.9, MCH 30.3, MCHC 34.1, RDW Std Deviation 45.5 H, RDW Coeff of Hayden 14.1, Plt Count 370, MPV 10.4, Neut % (Auto) Not Reportable, Absolute Neuts (auto) 22.8 H, Absolute Lymphs (auto) 2.54, Total Counted 100, Neutrophils % (Manual) 73 H, Band Neutrophils % 8 H, Lymphocytes % (Manual) 9 L, Monocytes % (Manual) 5, Eosinophils % (Manual) 1, Metamyelocytes % 1, Myelocytes % 3 H, Diff Path ReviewMay foll, Platelet Estimate ADEQUATE, RBC Morphology NORM C+C, Sodium 130 L, Potassium 3.4 L, Chloride 93 L, Carbon Dioxide 32.0, Anion Gap 5, BUN 16, Creatinine 1.14, Estim Creat Clear Calc 86.27, Est GFR (MDRD) Af Amer 90, Est GFR (MDRD) Non-Af 74, BUN/Creatinine Ratio 14.0, Glucose 116 H, Calcium 9.3, Total Bilirubin 1.20 H, AST 58 H, ALT 105 H, Alkaline Phosphatase 148 H, Total Protein 8.1, Albumin 3.3, Globulin 4.8 H, Albumin/Globulin Ratio 0.7 L Physical Exam Resp normal respiratory effort GI GI Narrative: Nondistended, soft, nontender to palpation even deeper palpation across the leftlower quadrant and suprapubic positions Assessment & Plan Assessment/Plan (1) Colonic diverticular abscess: (2) Sigmoid diverticulitis: PLAN: Plan This is a 42-year-old male with no significant past medical history presents with a weeklong history of constipation and crampy abdominal pain. He had an outpatient CT scan performed today through an outside hospital that showed evidence of complicated diverticulitis. He was admitted here on 11/02/2023 after he was referred for emergency room evaluation upon reporting of this CT imaging. Overnight he had an uneventful course and continues to report near complete resolution of his symptoms. His exam remains benign. ?Follow-up a.m. labs ? Patient okay for clear liquid diet with Ensure clears ? Planning to repeat CT imaging of the abdomen pelvis with p.o. and IV contrast tomorrow Charges/Coding Visit Charges Inpatient E&M: 58767 Subs Hosp L2 11/03/23 0724 <Electronically signed by Nehemias Beauchamp MD> Cosigner Signature (if applicable): CC: ~ Signed [facility] Work Phone: 1(313) 845-971412-13-2023 History and physical note Author Nehemias Beauchamp [facility] November 02, 2023 5:26pm Note Date/Time November 02, 2023 5:16pm [facility] Medical Records Department [address] [place] [address] History & Physical Exam 11/02/231712 MR#: [id number] Acct: [id number] Name: JOE CLARK Rep #:[id number] : 1980 42 From: Nehemias Brandt PCP: Dr. Humberto Dsouza MD Status:REG E R Location: ED HPI - General General Date of Service: 11/02/23 HPI Narrative JOE CLARK, is a 42 M who presents to [facility] after being referred to present for emergency evaluation upon a reading of an outpatient CT scan that was arranged through his primary care provider and performed at [facility]. He shares that he has had approximately 1 week of crampy abdominalpain and constipation. He shares that he was only able to manage small bowel movements despite doing things like milk of magnesia and additional fiber. He does confirm that he was passing flatus through these times. It became so uncomfortable with his inability to have a bowel movement and is associated bloating that he began inducing vomiting to clear stomach acid. He also reports that his appetite was minimal through this time. He denies any associated fevers, chills, or nausea. Following his CT imaging performed earlier today he returned home where he had 2 large bowel movements and now reports that this significantly improved his symptoms. Patient's CT results above showed evidence of a combination of extraluminal air and phlegmon. Laboratories were obtained in our ER and showed a white blood cell count of 28,[address] imaging results were digitally pushed through to our hospital and are available in the PACS system. Patient reports a possible intermittent history of similar symptoms which he suggested occurred with the frequency no more than once per year. He does mention that these were associated with some lower abdominal cramps and constipation, but always self-limited. He otherwise denies any present diagnoses. He has no history of abdominal surgery. He denies any family history of diverticulitis, inflammatory bowel disease, or colon cancer. He has never undergone colonoscopy himself. [facility] Medical History no medical history Allergy/AdvReac Type Severity Reaction Status Date / Time amoxicillin Allergy Intermediate Hives Verified 11/02/23 15:29 Social History Smoking Status: Light Smoker (<10/day) ROS Constitutional Constitutional: Denies chills or fever(s) Gastrointestinal Gastrointestinal: Reports abdominal pain, constipation and vomiting; Denies diarrhea or nausea Genitourinary Genitourinary: Denies dysuria Vital Signs Vital Signs Vital Signs: 11/02/23 15:27 Temperature 96.8 F L Temperature Source Temporal Pulse Rate 94 Respiratory Rate 16 Blood Pressure 131/96 H Blood Pressure Mean 107 Pulse Ox 100 Oxygen Delivery Method Room Air Weight Weight: 215 lb 9.6 oz Body Mass Index (BMI) 30.9 Physical Exam Const alert, oriented x3, no apparent distress and well nourished General Appearance: cooperative Resp normal respiratory effort GI GI Narrative: Hirsute, obese, umbilical herniation visible. Abdomen is soft and largely nontender to palpation (even focusing over the suprapubic and mid to lower abdomen). He does have tenderness with any significant palpation over his umbilical hernia which is soft and feels to be fat?containing Results Lab / Micro Data 11/02/23 15:40 11/02/23 15:40 Labs: Laboratory Results - last 24 hr 11/02/23 15:40: WBC 28.2 H, RBC 4.95, Hgb 15.0, Hct 44.0, MCV 88.9, MCH 30.3, MCHC 34.1, RDW Std Deviation 45.5 H, RDW Coeff of Hayden 14.1, Plt Count 370, MPV 10.4, Neut % (Auto) Not Reportable, Absolute Neuts (auto) 22.8 H, Absolute Lymphs (auto) 2.54, Total Counted 100, Neutrophils % (Manual) 73 H, Band Neutrophils % 8 H, Lymphocytes % (Manual) 9 L, Monocytes % (Manual) 5, Eosinophils % (Manual) 1, Metamyelocytes % 1, Myelocytes % 3 H, Diff Path ReviewMay foll, Platelet Estimate ADEQUATE, RBC Morphology NORM C+C, Sodium 130 L, Potassium 3.4 L, Chloride 93 L, Carbon Dioxide 32.0, Anion Gap 5, BUN 16, Creatinine 1.14, Estim Creat Clear Calc 86.27, Est GFR (MDRD) Af Amer 90, Est GFR (MDRD) Non-Af 74, BUN/Creatinine Ratio 14.0, Glucose 116 H, Calcium 9.3, Total Bilirubin 1.20 H, AST 58 H, ALT 105 H, Alkaline Phosphatase 148 H, Total Protein 8.1, Albumin 3.3, Globulin 4.8 H, Albumin/Globulin Ratio 0.7 L Assessment & Plan Assessment/Plan (1) Colonic diverticular abscess: (2) Sigmoid diverticulitis: PLAN: Plan This is a 42-year-old male with no significant past medical history presents with a weeklong history of constipation and crampy abdominal pain. He had an outpatient CT scan performed today through an outside hospital that showed evidence of complicated diverticulitis. Following the CT scan he had a number of bowel movements from the imaging contrast and reports significant spontaneousresolution of his symptoms. In fact, on exam he denies tenderness with deeper palpation in the vicinity of the inflammation showing on CT imaging. However, he does have a leukocytosis of 28,[address] imaging shows a contained area of air/phlegmon approximately 5 cm in size. I held a detailed conversation withthe patient and his spouse regarding the natural history of diverticulitis and reviewed his personal case details with them. With the benign nature of his exam, I would like to proceed with conservative management upfront. Patient does have a history of hives to amoxicillin so he has been started empirically on Cipro and Flagyl. At this juncture I will plan to admit to inpatient and continue these antibiotics with plans to reimage in 48 hours to assess for any possible need for percutaneous drainage. Charges/Coding Visit Charges Inpatient E&M: 63504 Init Hosp L2 11/02/236 <Electronically signed by Nehemias Beauchamp MD> Cosigner Signature (if applicable): CC: Dr. Nehemias Beauchamp MD; Dr. Humberto Dsouza MD~ Signed [facility] Work Phone: [phone]) 754-738512-13-2023 History and physical note Author Nehemias Beauchamp [facility] November 02, 2023 5:26pm Note Date/Time November 02, 2023 5:16pm [facility] Medical Records Department [address] [place] [address] History & Physical Exam 11/02/231712 MR#: [id number] Acct: [id number] Name: JOE CLARK Rep #:[id number] : 1980 42 From: Nehemias Brandt PCP: Dr. Humberto Dsouza MD Status:REG E R Location: ED HPI - General General Date of Service: 11/02/23 HPI Narrative JOE CLARK, is a 42 M who presents to [facility] after being referred to present for emergency evaluation upon a reading of an outpatient CT scan that was arranged through his primary care provider and performed at [facility]. He shares that he has had approximately 1 week of crampy abdominalpain and constipation. He shares that he was only able to manage small bowel movements despite doing things like milk of magnesia and additional fiber. He does confirm that he was passing flatus through these times. It became so uncomfortable with his inability to have a bowel movement and is associated bloating that he began inducing vomiting to clear stomach acid. He also reports that his appetite was minimal through this time. He denies any associated fevers, chills, or nausea. Following his CT imaging performed earlier today he returned home where he had 2 large bowel movements and now reports that this significantly improved his symptoms. Patient's CT results above showed evidence of a combination of extraluminal air and phlegmon. Laboratories were obtained in our ER and showed a white blood cell count of 28,[address] imaging results were digitally pushed through to our hospital and are available in the PACS system. Patient reports a possible intermittent history of similar symptoms which he suggested occurred with the frequency no more than once per year. He does mention that these were associated with some lower abdominal cramps and constipation, but always self-limited. He otherwise denies any present diagnoses. He has no history of abdominal surgery. He denies any family history of diverticulitis, inflammatory bowel disease, or colon cancer. He has never undergone colonoscopy himself. [facility] Medical History no medical history Allergy/AdvReac Type Severity Reaction Status Date / Time amoxicillin Allergy Intermediate Hives Verified 11/02/23 15:29 Social History Smoking Status: Light Smoker (<10/day) ROS Constitutional Constitutional: Denies chills or fever(s) Gastrointestinal Gastrointestinal: Reports abdominal pain, constipation and vomiting; Denies diarrhea or nausea Genitourinary Genitourinary: Denies dysuria Vital Signs Vital Signs Vital Signs: 11/02/23 15:27 Temperature 96.8 F L Temperature Source Temporal Pulse Rate 94 Respiratory Rate 16 Blood Pressure 131/96 H Blood Pressure Mean 107 Pulse Ox 100 Oxygen Delivery Method Room Air Weight Weight: 215 lb 9.6 oz Body Mass Index (BMI) 30.9 Physical Exam Const alert, oriented x3, no apparent distress and well nourished General Appearance: cooperative Resp normal respiratory effort GI GI Narrative: Hirsute, obese, umbilical herniation visible. Abdomen is soft and largely nontender to palpation (even focusing over the suprapubic and mid to lower abdomen). He does have tenderness with any significant palpation over his umbilical hernia which is soft and feels to be fat?containing Results Lab / Micro Data 11/02/23 15:40 11/02/23 15:40 Labs: Laboratory Results - last 24 hr 11/02/23 15:40: WBC 28.2 H, RBC 4.95, Hgb 15.0, Hct 44.0, MCV 88.9, MCH 30.3, MCHC 34.1, RDW Std Deviation 45.5 H, RDW Coeff of Hayden 14.1, Plt Count 370, MPV 10.4, Neut % (Auto) Not Reportable, Absolute Neuts (auto) 22.8 H, Absolute Lymphs (auto) 2.54, Total Counted 100, Neutrophils % (Manual) 73 H, Band Neutrophils % 8 H, Lymphocytes % (Manual) 9 L, Monocytes % (Manual) 5, Eosinophils % (Manual) 1, Metamyelocytes % 1, Myelocytes % 3 H, Diff Path ReviewMay foll, Platelet Estimate ADEQUATE, RBC Morphology NORM C+C, Sodium 130 L, Potassium 3.4 L, Chloride 93 L, Carbon Dioxide 32.0, Anion Gap 5, BUN 16, Creatinine 1.14, Estim Creat Clear Calc 86.27, Est GFR (MDRD) Af Amer 90, Est GFR (MDRD) Non-Af 74, BUN/Creatinine Ratio 14.0, Glucose 116 H, Calcium 9.3, Total Bilirubin 1.20 H, AST 58 H, ALT 105 H, Alkaline Phosphatase 148 H, Total Protein 8.1, Albumin 3.3, Globulin 4.8 H, Albumin/Globulin Ratio 0.7 L Assessment & Plan Assessment/Plan (1) Colonic diverticular abscess: (2) Sigmoid diverticulitis: PLAN: Plan This is a 42-year-old male with no significant past medical history presents with a weeklong history of constipation and crampy abdominal pain. He had an outpatient CT scan performed today through an outside hospital that showed evidence of complicated diverticulitis. Following the CT scan he had a number of bowel movements from the imaging contrast and reports significant spontaneousresolution of his symptoms. In fact, on exam he denies tenderness with deeper palpation in the vicinity of the inflammation showing on CT imaging. However, he does have a leukocytosis of 28,[address] imaging shows a contained area of air/phlegmon approximately 5 cm in size. I held a detailed conversation withthe patient and his spouse regarding the natural history of diverticulitis and reviewed his personal case details with them. With the benign nature of his exam, I would like to proceed with conservative management upfront. Patient does have a history of hives to amoxicillin so he has been started empirically on Cipro and Flagyl. At this juncture I will plan to admit to inpatient and continue these antibiotics with plans to reimage in 48 hours to assess for any possible need for percutaneous drainage. Charges/Coding Visit Charges Inpatient E&M: 92397 Init Hosp L2 11/02/23 1726 <Electronically signed by Nehemias Beauchamp MD> Cosigner Signature (if applicable): CC: Dr. Nehemias Beauchamp MD; Dr. Humberto Dsouza MD~ Signed [facility] Work Phone: [phone]) 968-570212-13-2023 [facility] Medical Records Department [address] [place] [id number] History Physical Exam 11/02/23 1713 MR#: [id number] Acct: [id number] Name: JOE CLARK Rep #: [id number] : 1980 42 From: Nehemias Beauchamp MD PCP: Dr. Humberto Dsouza MD Status:REG ER Location: ED HPI - General General Date of Service: 11/02/23 HPI Narrative JOE CLARK, is a 42 M who presents to [facility] after being referred to present for emergency evaluation upon a reading of an outpatient CT scan that was arranged through his primary care provider and performed at [facility]. He shares that he has had approximately 1 week of crampy abdominal pain and constipation. He shares that he was only able to manage small bowel movements despite doing things like milk of magnesia and additional fiber. He does confirm that he was passing flatus through these times. It became so uncomfortable with his inability to have a bowel movement and is associated bloating that he began inducing vomiting to clear stomach acid. He also reports that his appetite was minimal through this time. He denies any associated fevers, chills, or nausea. Following his CT imaging performed earlier today he returned home where he had 2 large bowel movements and now reports that this significantly improved his symptoms. Patient's CT results above showed evidence of a combination of extraluminal air and phlegmon. Laboratories were obtained in our ER and showed a white blood cell count of 28,[address] imaging results were digitally pushed through to our hospital and are available in the PACS system. Patient reports a possible intermittent history of similar symptoms which he suggested occurred with the frequency no more than once per year. He does mention that these were associated with some lower abdominal cramps and constipation, but always self-limited. He otherwise denies any present diagnoses. He has no history of abdominal surgery. He denies any family history of diverticulitis, inflammatory bowel disease, or colon cancer. He has never undergone colonoscopy himself. [facility] Medical History no medical history Allergy/AdvReac Type Severity Reaction Status Date / Time amoxicillin Allergy Intermediate Hives Verified 11/02/23 15:29 Social History Smoking Status: Light Smoker (<10/day) ROS Constitutional Constitutional: Denies chills or fever(s) Gastrointestinal Gastrointestinal: Reports abdominal pain, constipation and vomiting; Denies diarrhea or nausea Genitourinary Genitourinary: Denies dysuria Vital Signs Vital Signs Vital Signs: 11/02/23 15:27 Temperature 96.8 F L Temperature Source Temporal Pulse Rate 94 Respiratory Rate 16 Blood Pressure 131/96 H Blood Pressure Mean 107 Pulse Ox 100 Oxygen Delivery Method Room Air Weight Weight: 215 lb 9.6 oz Body Mass Index (BMI) 30.9 Physical Exam Const alert, oriented x3, no apparent distress and well nourished General Appearance: cooperative Resp normal respiratory effort GI GI Narrative: Hirsute, obese, umbilical herniation visible. Abdomen is soft and largely nontender to palpation (even focusing over the suprapubic and mid to lower abdomen). He does have tenderness with any significant palpation over his umbilical hernia which is soft and feels to be fat???containing Results Lab / Micro Data 11/02/23 15:40 11/02/23 15:40 Labs: Laboratory Results - last 24 hr 11/02/23 15:40: WBC 28.2 H, RBC 4.95, Hgb 15.0, Hct 44.0, MCV 88.9, MCH 30.3, MCHC 34.1, RDW Std Deviation 45.5 H, RDW Coeff of Hayden 14.1, Plt Count 370, MPV 10.4, Neut % (Auto) Not Reportable, Absolute Neuts (auto) 22.8 H, Absolute Lymphs (auto) 2.54, Total Counted 100, Neutrophils % (Manual) 73 H, Band Neutrophils % 8 H, Lymphocytes % (Manual) 9 L, Monocytes % (Manual) 5, Eosinophils % (Manual) 1, Metamyelocytes % 1, Myelocytes % 3 H, Diff Path Review March, Platelet Estimate ADEQUATE, RBC Morphology NORM C+C, Sodium 130 L, Potassium 3.4 L, Chloride 93 L, Carbon Dioxide 32.0, Anion Gap 5, BUN 16, Creatinine 1.14, Estim Creat Clear Calc 86.27, Est GFR (MDRD) Af Amer 90, Est GFR (MDRD) Non-Af 74, BUN/Creatinine Ratio 14.0, Glucose 116 H, Calcium 9.3, Total Bilirubin 1.20 H, AST 58 H, ALT 105 H, Alkaline Phosphatase 148 H, Total Protein 8.1, Albumin 3.3, Globulin 4.8 H, Albumin/Globulin Ratio 0.7 L Assessment Plan Assessment/Plan (1) Colonic diverticular abscess: (2) Sigmoid diverticulitis: PLAN: Plan This is a 42-year-old male with no significant past medical history presents with a weeklong history of constipation and crampy abdominal pain. He had an outpatient CT scan performed today through an outside hospital that showed evidence of complicated diverticulitis. Following the CT scan he h (more content not included)...[facility] 11-02-2023 Discharge summary Author Kentrell Solano [facility] November 02, 2023 5:00pm Note Date/Time November 02, 2023 3:45pm [facility] Medical Records Department [address] [place] [address] Emergency Department Summary 11/02/23 MR#: [id number] Acct: [id number] Name: JOE CLARK Rep #:[id number] : 1980 42 From: Kentrell Solano MD PCP: Dr. Humberto Dsouza MD Status:REG E R Location: ED HPI HPI - GI History of Present Illness Chief Complaint: Abd Pain Narrative Narrative: 42-year-old male who denies significant past medical history presents with diverticulitis on CT scan with possible abscess. He relates history that over the last week he has had abdominal pain and bloating, along with obstipation. No fevers or chills. He may have been nauseated but he forced himself to vomit which made him feel better temporarily. He has been showing improvement over the last 5 days with his abdominal pain, but he saw his primary care provider who ordered an outpatient CT with oral and IV contrast. After the CT was performed performed as an outpatient, he went home and had 2 large bowel movements and feels improved. However, he was told that the CT read showed diverticulitis with abscess, so he needed to come to the emergency department and be admitted for a few rounds of IV antibiotics. He denies any exacerbating or alleviating factors but states that he is feeling improved with his abdominalpain. Additionally, he denies any past abdominal surgical history. [facility] Medical History no medical history Allergy/AdvReac Type Severity Reaction Status Date / Time amoxicillin Allergy Intermediate Hives Verified 11/02/23 15:29 Social History Smoking Status: Light Smoker (<10/day) ROS ROS ED ROS Narrative Constitutional: No fever, no chills. HEENT: No sore throat. No neck pain. No loss of vision. No rhinorrhea. Cardiovascular: No chest pain. No palpitations. No pedal edema. Respiratory: No cough, no shortness of breath. Abdominal: No abdominal pain. Positive nausea. No vomiting. Positive obstipation. Mild diffuse abdominal pain, improving. Genitourinary: No dysuria. No hematuria. Musculoskeletal: No myalgias. No arthralgias. Neurologic: No headaches. No dizziness. No lightheadedness. Skin: No rash. No change in color. Psychiatric: No depression. No anxiety. EXAM Physical Exam Narrative Exam Narrative: Afebrile. Vital signs noted. HEENT: Normocephalic. Atraumatic. PERRL, EOMI. Neck soft and supple. No pointtenderness or step off. Cardiovascular: Regular rate and rhythm. No murmurs, rubs, or gallops appreciated. Respiratory: No tachypnea. Lungs clear to auscultation bilaterally. Gastrointestinal: Abdomen soft, nontender, with normoactive to slightly decreased bowel sounds. No rebound or guarding. Neurological: Awake. Alert. Nonfocal, nonlateralizing. Skin: No rash. Normal color. No pallor. Musculoskeletal: No pedal edema. Full range of motion extremities. Const Vital Signs: 11/02/23 15:27 Temperature 96.8 F L Temperature Source Temporal Pulse Rate 94 Respiratory Rate 16 Blood Pressure 131/96 H Blood Pressure Mean 107 Pulse Ox 100 Oxygen Delivery Method Room Air MDM MDM MDM Narrative Medical decision making narrative: I do not feel that the differential is warranted as he presents with imaging studies saying that he has diverticulitis. I reviewed the CT results from the outside facility and there is marked inflammatory changes of the sigmoid colon consistent with diverticulitis. Superior and to the left of the colon is a hypoattenuating focus with an area suspicious for phlegmon versus abscess. He may have a microperforation. There is extraluminal punctate air and superior into the left of the sigmoid is an air-fluid level. There is also moderate stool retention. I will obtain a CBC and CMP and start him on Cipro and Flagyl as he has hives to amoxicillin. I will discuss patient with Dr. Beauchamp with general surgery. I reviewed his laboratory work and he has a leukocytosis of 28.2, hemoglobin normal at 15. He has elevated neutrophils of 73 and band of 8. His CMP is significant for a sodium of 130, LFTs are slightly elevated with AST of 58 and ALT of 105 with slightly elevated alk phos. In discussion with Dr. Beauchamp, he was able to review the CT imaging that had been downloaded from the outside facility. Patient will be admitted to the medical surgical floor. Patient is in stable condition. History & Record Review Discussion w/independent historian: Patient Lab Data Attestation: I reviewed the patient's lab results. Labs: Laboratory Results - last 24 hr 11/02/23 15:40 WBC 28.2 H RBC 4.95 Hgb 15.0 Hct 44.0 MCV 88.9 MCH 30.3 MCHC 34.1 RDW Std Deviation 45.5 H RDW Coeff of Hayden 14.1 Plt Count 370 MPV 10.4 Neut % (Auto) Not Reportable Absolute Neuts (auto) 22.8 H Absolute Lymphs (auto) 2.54 Total Counted 100 Neutrophils % (Manual) 73 H Band Neutrophils % 8 H Lymphocytes % (Manual) 9 L Monocytes % (Manual) 5 Eosinophils % (Manual) 1 Metamyelocytes % 1 Myelocytes % 3 H Diff Path Review May foll Platelet Estimate ADEQUATE RBC Morphology NORM C+C Sodium 130 L Potassium 3.4 L Chloride 93 L Carbon Dioxide 32.0 Anion Gap 5 BUN 16 Creatinine 1.14 Estim Creat Clear Calc 86.27 Est GFR (MDRD) Af Amer 90 Est GFR (MDRD) Non-Af 74 BUN/Creatinine Ratio 14.0 Glucose 116 H Calcium 9.3 Total Bilirubin 1.20 H AST 58 H ALT 105 H Alkaline Phosphatase 148 H Total Protein 8.1 Albumin 3.3 Globulin 4.8 H Albumin/Globulin Ratio 0.7 L Management Discussion w/another healthcare provider: Street Superintendent (Dr. Beauchamp, general surgery) Discharge Plan Dx/Rx/DC Orders Clinical Impression: Hyponatremia, Leukocytosis, Sigmoid diverticulitis, Colonic diverticular abscess Disposition Disposition: Acute Care Hospital [facility] What to do if you have Problems For any increased pain, shortness of breath, bleeding, nausea or vomiting, chestpain, or any unexpected problems, contact your Primary Care Provider. Call [facility] ([phone]) or report to the closest Emergency Room. Call 911 if necessary. 11/02/23 1700 <Electronically signed by Kentrell Solano MD> Cosigner Signature (if applicable): CC: Dr. Humberto Dsouza MD ~ Signed [facility] Work Phone: Discharge summary Author Alcides Diaz [facility] November 05, 2023 3:12pm Note Date/Time November 05, 2023 3:10pm [facility] Medical Records Department [address] [place] [address] Discharge Summary 11/05/23 1508 MR#: [id number] Acct: [id number] Name: JOE CLARK Rep #:[id number] : 1980 42 From: Alcides ram MD PCP: Dr. Humberto Dsouza MD Status:ADM I N Location: [place] [id number] Providers Date of Admission: 11/02/23 Primary Care Physician: Dr. Humberto Dsouza MD Reason For Visit: COMPLICATED DIVERTICULITIS Diagnosis Discharge Diagnosis (1) Colonic diverticular abscess: Status: Acute Code(s): K57.20 - Diverticulitis of large intestine with perforation and abscess without bleeding Plan: Patient has diverticulitis with diverticular abscess. He had a drain placed yesterday. His white count did rise slightly but this may be due to having the drain placed. He is not complaining of any abdominal pain and he is having bowel function. I will advance him to a full liquid diet. If he is doing well this afternoon I may discharge him home on a full liquid diet and oral antibiotics versus keeping him for 1 more day and rechecking labs in the morning. Alcides Diaz MD Pager: [facility] [address] [place] [address], [address] [place] [address] Office: Medications at Discharge Home Medications acetaminophen 500 mg tablet 500 mg PO Q4H PRN PRN Pain Score 1-10 #0 tabs 11/05/23 ciprofloxacin HCl 500 mg tablet (Cipro) 500 mg PO BID 10 days #20 tabs 11/05/23 metronidazole 500 mg tablet 500 mg PO Q8H 10 days #30 tabs 11/05/23 Hospital Course Summary of Care Provided Hospital Course: Patient was transferred here with perforated diverticulitis with abscess. He was kept on antibiotics and 2 days later a repeat CT was performed. That same day a percutaneous drain was placed. Patient is doing well and tolerating diet and having bowel movements and I will discharge him home on full liquid diet. Weight / BMI Weight Weight: 215 lb 6.266 oz Body Mass Index (BMI) 30.8 ABG / Lab / Microbiology Data 11/05/23 05:38 11/05/23 05:38 Laboratory: Laboratory Results - last 24 hr 11/05/23 05:38: WBC 18.0 H, RBC 4.78, Hgb 14.5, Hct 42.9, MCV 89.7, MCH 30.3, MCHC 33.8, RDW Std Deviation 48.1 H, RDW Coeff of Hayden 14.5, Plt Count 408, MPV 10.2, Neut % (Auto) Not Reportable, Absolute Neuts (auto) 14.9 H, Absolute Lymphs (auto) 1.62, Total Counted 100, Neutrophils % (Manual) 80 H, Band Neutrophils % 3, Lymphocytes % (Manual) 9 L, Monocytes % (Manual) 5, Myelocytes % 3 H, Diff Path Review May foll, Platelet Estimate ADEQUATE, RBC Morphology NORM C+C, Sodium 135 L, Potassium 3.4 L, Chloride 103, Carbon Dioxide 27.0, Anion Gap 5, BUN 7, Creatinine 0.74, Estim Creat Clear Calc 132.90, Est GFR (MDRD) Af Amer 148, Est GFR (MDRD) Non-Af 122, BUN/Creatinine Ratio 9.5 L, Glucose 87, Calcium 8.2 L, Phosphorus 2.9, Magnesium 2.4 Microbiology: Microbiology 11/04/23 12:10 Wound Abcess - Abdominal Gram Stain - Final 11/04/23 12:10 Wound Abcess - Abdominal Wound Culture - Preliminary GNR lactose log check scaler Gram positive organism D/C Instructions Discharge Diet: - (Full liquid diet) Discharge Activity: Return to Normal Activity and [address] Call your doctor if your incision/area has: Increased Pain/ Swelling Call your doctor if you observe: Fever of 101 or Higher and Inability to have a bowel movement Additional Instructions: Empty drain as needed and record daily output amount Please Follow Up With: Nehemias Beauchamp MD When: call tuesday to make follow up appt [phone] Meaningful Use Info Meaningful Use Diagnoses (Choose all that apply): None applicable Discharge Plan Admission Admit Date/Time: 11/02/23 17:27 Attending Provider: Nehemias Beauchamp Primary Care Provider: Humberto Dsouza Instructions Patient Instructions: Jan King Drain Tube Dc, Post Op Drain Emptying Steps Discharge Orders/Prescriptions Prescriptions: New acetaminophen 500 mg Tablet 500 mg PO Q4H PRN PRN (Reason: Pain Score 1-10) Qty: 0 0RF ciprofloxacin HCl [Cipro] 500 mg tablet 500 mg PO BID 10 Days Qty: 20 0RF metronidazole 500 mg tablet 500 mg PO Q8H 10 Days Qty: 30 0RF Referrals / Follow Up: Humberto Dsouza MD [Primary Care Provider] - Disposition Disposition (needs filled in before D/C Order can be placed): Home, Self Care 11/05/23 151 <Electronically signed by Alcides Diaz MD> Cosigner Signature (if applicable): CC: Dr. Alcides Diaz MD; Dr. Humberto Dsouza MD~ Signed [facility] Work Phone: Evaluation note* Diagnosis Onset Date Resolution Status Colonic diverticular abscess acute Hyponatremia acute Leukocytosis acute Sigmoid diverticulitis acute [facility] Work Phone: Evaluation note* Diagnosis Onset Date Resolution Status Colonic diverticular abscess acute Hyponatremia resolved Leukocytosis resolved Sigmoid diverticulitis resol yanna Colonic diverticular abscess acute Colonic diverticular abscess acute [facility] Work Phone: History and physical note Author Nehemias Beauchamp [facility] January 06, 2024 7:29am Note Date/Time January 06, 2024 7:29am [facility] Medical Records Department [address] [place] [address] History & Physical Exam 01/06/24 0728 MR#: [id number] Acct: [id number] Name: JOE CLARK Rep #:[id number] : 1980 43 From: Nehemias Brandt PCP: Dr. Humberto Dsouza MD Status:REG S CA Location: [place] [address] History and Physical Date of Admission: 01/06/24 OFFICE VISIT Date of Service: 11/15/23 MR#: [id number] Acct: [id number] Name: JOE CLARK Rep #: [id number] : 1980 Provider: Dr. Nehemias Beauchamp MD Age/Sex: 43/M Location: [facility] Status: Signed Intake Vital Signs 11/03/2310:18 Height 5 ft 10.08 in Intake Visit Reasons: DIVERTICULITIS 11/05 Chief Complaint: diverticulitis 11/05 Is patient in pain?: No Allergies amoxicillin Allergy (Intermediate, Verified 11/15/23 12:21) Hives Medications acetaminophen 500 mg tablet 500 mg PO Q4H PRN PRN Pain Score 1-10 #0 tabs 11/05/23 [Rx Confirmed 11/15/23] ciprofloxacin HCl 500 mg tablet (Cipro) 500 mg PO BID 10 days #20 tabs 11/05/23 [Rx Confirmed 11/15/23] metronidazole 500 mg tablet 500 mg PO Q8H 10 days #30 tabs 11/05/23 [Rx Confirmed 11/15/23] PFSH Surgical History History of right hip replacement Social History Smoking Status: Light Smoker (<10/day) alcohol intake: current alcohol intake frequency: holidays/special occasions only substance use type: does not use HPI HPI HPI: Patient is a 43-year-old male with history of colonic diverticulitis and diverticular abscess status post percutaneous drainage. He follows up from 11/10/2023 clinic visit and presents for possible drain discontinuation. He states that he has done well following her last visit and has not had any outputfrom his drain. He denies any fevers or chills Below is recapitulated from patient's prior visit for ease of review: Patient follows up from recent hospitalization at due to 11/05/2023 and includedpercutaneous drainage via CT guidance of a peritoneal abscess secondary to complicated diverticulitis. Today presents with his and reports that he isoverall doing well. In fact, he reports that he is returned to work without difficulty. He provides a drain log that suggests every day outside of 2023 he has had 5 mL or less drainage. He describes the output is generally light brown with no smell. He denies any fevers or chills. He continues on a full liquid diet but has had a strong appetite. He confirms thathis bowels been regular and unremarkable. [facility] Musculoskeletal: Yes arthritis Gastro Gastrointestinal: Yes abdominal pain Exam Const General: cooperative and comfortable Resp Effort & Inspection: normal respiratory effort GI Other: Patient's abdomen is nondistended, soft, nontender to palpation. He has no output from his TOMASA drain and the drainage in the tubing is simply clear yellow. Assessment and Plan Assessment and Plan (1) Colonic diverticular abscess: Status: Acute Comment: This is a 43-year-old male who makes his second outpatient visit following percutaneous drain placement during inpatient stay which concluded 11/05/2023. Overall he appears continue to be doing well as an outpatient. He has just 1 more day of antibiotics. I have instructed him to then begin use of a probiotic. His drain was pulled successfully during today's visit and was well-tolerated. I have encouraged him to gradually go up on his diet?pain specific attention to incorporating protein. I have given him alarm symptoms to be on the look out for, but have stated that we will plan to begin the 6-week count down to a diagnostic colonoscopy. Plan: ? Complete antibiotic course ? Begin probiotic ? Patient continue more of a soft low residue diet with inclusion of foods such as mashed potatoes, eggs, ground lean meats,? ? Remove drain site dressing in 48 hours then begin showering ? Diagnostic colonoscopy in 6 weeks I have examined the patient and the H&P has been reviewed. There are no clinicalchanges since date of exam. Patient reports that he has had no further abdominal pain apart from some cramping related to his bowel prep. He confirms that he completed his prep and that his output is now clear. He states that he is given some thought to segmental colectomy for addressing his diverticular disease but is not yet decided. He denies any further questions related to procedure after a brief overview was reviewed. Therefore we will proceed to theendoscopy suite for diagnostic colonoscopy as discussed in greater detail above. 01/06/24728 <Electronically signed by Nehemias Beauchamp MD> Cosigner Signature (if applicable): CC: Dr. Nehemias Beauchamp MD; Dr. Humberto Dsouza MD~ Signed [facility] Work Phone: Summary Purpose Family History No Family History Records FoundNo Family History Records FoundNo Family History Records FoundNo Family History Records Found Advance Directives No Advanced Directives Records Found Advance Directive Response Recorded Date/ Time Living Will No November 02, 2 023 3:39pm Power of Acute Care Physical Therapist No November 02, 2023 3:39pm Advance Directive Response Recorded Date/ Time Living Will No December 30 11:55am Power of Acute Care Physical Therapist No December 30, 2023 11:55am Advance Directive Response Recorded Date/ Time Living Will No November 02, 2 023 9:07pm Power of Acute Care Physical Therapist No November 02, 2023 9:07pm Chief Complaint and Reason for Visit Chief Complaint abd pain COMPLICATED DIVERTICULITIS Reason for Visit Colonic diverticular abscess Hyponatremia Leukocytosis Sigmoid diverticulitis Chief Complaint abd pain COMPLICATED DIVERTICULITIS COMPLICATED DIVERTICULITIS COMPLICATED DIVERTICULITIS COMPLICATED DIVERTICULITIS DIVERTICULITIS 11/05 DIVERTICULITIS 11/05 Reason for Visit Colonic diverticular abscess Hyponatremia Leukocytosis Sigmoid diverticulitis Colonic diverticular abscess Colonic diverticular abscess Chief Complaint abd pain COMPLICATED DIVERTICULITIS COMPLICATED DIVERTICULITIS COMPLICATED DIVERTICULITIS COMPLICATED DIVERTICULITIS Reason for Visit Colonic diverticular abscess Hyponatremia Leukocytosis Sigmoid diverticulitis Additional Source Comments (unrecognized sect ion and content) No Status Records FoundNo Status Records FoundNo Status Records FoundNo Status Records Found INFORMATION SOURCE (unrecogn ized section and content) DATE CREATED AUTHOR 12/18/2018 [facility] DATE CREATED AUTHOR AUTHOR'S ORGANIZ ATION 11/12/2023 [facility] ([place]) DATE CREATED AUTHOR AUTHOR'S ORGANIZ ATION 01/17/2024 [facility] DATE CREATED AUTHOR AUTHOR'S ORGANIZ ATION 02/23/2025 [facility] Care Teams (unrecognized sec tion and content) Team Status: Active Member Role Status Dates Dr. Humberto Dsouza MD Primary Care Provider Active Team Status: Active Member Role Status Dates Dr. Humberto Dsouza MD Primary Care Provider Active Kentrell Solano MD Emergency Provider Active Dr. Nehemias Beauchamp MD Attending Provider Active Team Status: Active Member Role Status Dates Dr. Humberto Dsouza MD Primary Care Provider Active Kentrell Solano MD Emergency Provider Active Dr. Nehemias Beauchamp MD Admit Provider, Attending Provi maddy Active Team Status: Active Member Role Status Dates Dr. Humberto Dsouza MD Primary Care Provider Active Kentrell Solano MD Emergency Provider Active Dr. Nehemias Beauchamp MD Admit Provider, A ttending Provider, Other Provider Active Team Status: Active Member Role Status Dates Dr. Humberto Dsouza MD Primary Care Provider Active Kentrell Solano MD Emergency Provider Active Dr. Nehemias Beauchamp MD Admit Provider, Other Provider Active Dr. Alcides Diaz MD Attending Provider Active Team Status: Inactive Member Role Status Dates Dr. Humberto Dsouza MD Primary Care Provider, Referring Provider Active Dr. Nehemias Beauchamp MD Attending Provider Active Team Status: Active Member Role Status Dates Dr. Humberto Dsouza MD Primary Care Provider, Referring Provider Active Dr. Nehemias Beauchamp MD Attending Provider, Other Provi maddy Active Team Status: Inactive Member Role Status Dates Dr. Humberto Dsouza MD Primary Care Provider Active Kentrell Solano MD Emergency Provider Active Dr. Nehemias Beauchamp MD Admit Provider, Attending Provi maddy Active Goals (unrecognized section and content) Goals may be documented in a n alternate section FOR RECORDS PERTAINING TO PATIENTS WHO ARE [...] BE BASED ON THE PRIMARY CLINICAL RECORDS. [employer] provides no warranty or guarantee of the accuracy or completeness of information in this document.
[2025-06-23 16:05] LABS: Differential Indicated SCAN CRITERIA MET
[2025-06-23 16:22] LABS: Anion Gap 16 (5-15); BUN 28 mg/dL (4-19); BUN/Creat Ratio 21.0 RATIO (10-20); Calcium,Total 9.7 mg/dL (7.6-11.0); Carbon Dioxide 21.6 mmol/L (21.0-32.0); Chloride 96 mmol/L (98-108); Estimated Creatinine Clearance 77.72 ml/min (50-250); Glucose 124 mg/dL (70-99); Potassium 3.5 mmol/L (3.3-5.1)
[2025-06-23] MEDS: 0.9% Normal Saline (1000mL) 1,000 ML 999 ML IV (16:29)
[2025-06-23] MEDS: metroNIDAZOLE 500 MG/100 ML BAG 100 MG IV ×2 (17:12→22:21)
--- NOTE | 2025-06-23 18:00 | HP.PCM.HOS_ITS ---
HPI - General General Date of Admission: 06/23/25 Date of Service: 06/23/25 Chief Complaint: Abdominal pain HPI Narrative JOE GARCÍA, is a 44 M who presented to [facility] on 06/23/2025 with abdominal pain. Medical history significant for sigmoid diverticulitis with abscess back in October 2023. Dr. Beauchamp followed at that time and he did require drain placement. He had follow-up colonoscopy done in December that showed complete resolution of abscess. Patient has had 1 episode since then several months ago where he began to have left lower quadrant pain. Called Dr. Beauchamp's office and had labs and imaging done that showed uncomplicated diverticulitis. Patient was able to manage this at home and did well. He states today that he began to have left lower quadrant pain on Tuesday. He modified his diet as he had previously done but unfortunately he continued to have more pain and had an episode of vomiting yesterday evening. Thus, he came in today for further evaluation. On arrival to the ED he was in sinus tachycardia to the 120s but normotensive and afebrile. Heart rate improved significantly with pain control and IV fluids. CT abdomen pelvis showed sigmoid colon inflammation with bowel thickening concerning for recurrent diverticulitis. Importantly no drainable fluid collection was noted. WBC count 25,000 and creatinine 1.34 (baseline around 0.7). ED physician discussed with general surgery who noted no acute surgical needs. Hospitalist was then contacted for admission. I saw the patient at bedside in the ED, was present. Patient was sitting back comfortably in bed, conversing normally, in no acute distress. Noted that the pain medication had been moderately helpful for his pain and we had minimal lower quadrant pain currently. He did feel acute tolerate a liquid diet at this point. Denied any other acute concerns currently. Will be admitted for further management. [facility] Medical History Alcohol use Arthritis History of diverticulitis Former smoker Home Medications ?Medication ?Instructions ?Recorded ?Last Taken ?Type acetaminophen 500 mg tablet 500 mg PO Q4H PRN fever or pain 06/23/25 06/23/25 History Allergy/AdvReac Type Severity Reaction Status Date / Time amoxicillin Allergy Intermediate Hives Verified 06/23/25 15:02 Surgical History Hx of tonsillectomy Hx of left knee surgery History of right hip replacement Social History Smoking Status: Former smoker alcohol intake: current alcohol intake frequency: holidays/special occasions only substance use type: does not use ROS Constitutional Constitutional: Denies chills, fatigue, fever(s) or weakness Eyes Eyes: Denies change in vision Cardiovascular Cardiovascular: Denies chest pain Respiratory/Chest Respiratory/Chest: Denies shortness of breath at rest Gastrointestinal Gastrointestinal: Reports abdominal pain, loose stools and nausea; Denies constipation, hematochezia, melena or vomiting Genitourinary Genitourinary: Denies dysuria Musculoskeletal Musculoskeletal: Denies arthralgias or myalgias Vital Signs Vital Signs Vital Signs: 06/23/25 14:59 06/23/25 16:02 06/23/25 17:00 Temperature 99.1 F 98.4 F 98.5 F Temperature Source Oral Oral Oral Pulse Rate 128 H 103 H 92 Respiratory Rate 18 18 18 Blood Pressure 134/96 H 125/78 H 130/88 H Blood Pressure Mean 108 93 102 Pulse Ox 98 97 98 Oxygen Delivery Method Room Air Room Air Room Air 06/23/25 17:21 Temperature 98.5 F Temperature Source Pulse Rate 92 Respiratory Rate 18 Blood Pressure 130/88 H Blood Pressure Mean 102 Pulse Ox 97 Oxygen Delivery Method Weight Weight: 87.815 kg Body Mass Index (BMI) 27.8 Results Lab / Micro Data 06/23/25 15:45 06/23/25 15:45 Labs: Laboratory Results - last 24 hr 06/23/25 15:45: WBC 25.7 H, RBC 4.95, Hgb 15.5, Hct 42.8, MCV 86.5, MCH 31.3, M CHC 36.2 H, RDW Std Deviation 43.2, RDW Coeff of Hayden 13.6, Plt Count 249, MPV 11.3, Immature Gran % (Auto) 0.800, Neut % (Auto) 90.1 H, Lymph % (Auto) 5.1 L, Kane % (Auto) 3.3, Eos % (Auto) 0.4, Baso % (Auto) 0.3, Absolute Neuts (auto) 23.2 H, Absolute Lymphs (auto) 1.31, Nucleated RBC % 0, Sodium 134, Potassium 3.5, Chloride 96 L, Carbon Dioxide 21.6, Anion Gap 16 H, BUN 28 H, Creatinine 1.34 H, Estim Creat Clear Calc 77.72, Est GFR (MDRD) Non-Af 67, BUN/Creatinine Ratio 21.0 H, Glucose 124 H, Calcium 9.7 06/23/25 16:35: Lactic Acid 1.0 Imaging Radiology Impression Abdomen/Pelvis CT 06/23/25 15:35 IMPRESSION: Inflammatory process in the left lower quadrant with bowel wall thickening of the sigmoid colon suggest possibility of recurrent diverticulitis. Trace fluid and fat stranding. No drainable fluid collection. Fluid-filled distended loops of small bowel indicate possible SBO or ileus, please correlate clinically Subtle patchy airspace disease inferior lingula and to lesser extent lung bases, please provide clinical correlation to exclude pneumonia [facility] Assessment & Plan Assessment/Plan (1) Sigmoid diverticulitis: (2) Acute kidney injury: PLAN: Plan Patient is a 44-year-old male who presented [facility] ED on 06/23/2025 with abdominal pain. 1. Recurrent sigmoid diverticulitis ? Admit under inpatient status to [facility]. General surgery consulted. History of sigmoid diverticulitis with abscess back in 10/2023, see HPI for further details. CT abdomen pelvis on this admit shows sigmoid colon inflammation with bowel thickening concerning for recurrent diverticulitis. WBC count 25,000. Per surgery, consistent with recurrent diverticulitis but no need for surgical intervention at this time. Will treat with IV ciprofloxacin and Flagyl for now. Will start full liquid diet tonight; appreciate surgery recommendations on advancement of diet. 2. LELA ? Creatinine 1.34 on admit, baseline around 0.7. Presume prerenal in setting of diverticulitis as above. Given IV fluids on admit, follow-up a.m. BMP and monitor urine output. DVT prophylaxis: Lovenox CODE STATUS: Full code, verified Expected disposition: Home, 2 to 3 days Total clinical time spent by myself addressing the patient's medical issues, reviewing all the data, and collaborating with patient's care team: 55 minutes. Charges/Coding Visit Charges Inpatient E&M: 68689 Init Hosp L2
[2025-06-23 18:10] LABS: Differential Comment SCANNED
--- OUTSIDE RECORDS SUMMARY | 2025-06-23 18:32 | XMS RPT_ITS | CCD ---
Author Organization [facility] Care Team Providers Care Patient Scheduling Coordinator Name Role Phone RATNA ABDUL Attending UnavailBOB Thompson Attending Unavailable Dr. Humberto Dsouza Primary Care Provider MD Xiomara Kentrell Emergency Provider [phone] Nehemias Beauchamp Attending Provider LIANNA CHAMPION, DR HUMBERTO Puga Attending Unavaildeisi [facility] Manning Unavailable NEHEMIAS LAMBERT DO Unavailable Unavailable JOSE LUIS DSOUZA MD Unavailable Liana Ceron RN Unavailable Unavailable HUMBERTO DSOUZA MD Unavailable Juan PEARCE MD Unavailable Madonna Maldonado Unavailable Unavailable Xavier MALDONADO MD Unavailable Erum Valle Unavailable Unavailable Fortunato WAN, Bri Unavailable Unavaila ble Unavailable Unavailable Dr. Nehemias Beauchamp Admit Provider Dr. Nehemias Beauchamp Other Provider [phone] Alcides Diaz Attending Provider [phone] Dr. Humberto Dsouza Referring Provider Nehemias Beauchamp Consulting Unavailable Nehemias Beauchamp Attending [...] Attending Unavailable Humberto Dsouza Primary Care Unavailable DsouzauHmberto brandt Referring Unavailable Nehemias Beauchamp Attending Unavailable [...] Facility (6 sources) Amoxicillin Drug Allergy 11-02-2023 [facility] (1 source) Amoxicillin Drug Allergy 01-06-2024 [facility] Repository Medications Current Medications Medication Drug Class(es) [...] D 1-3=6tab daily D 4-6=4tab D 7-9=2tab M88-12=9dqt for 12 days Quantity: 40 {Tablet} Refills: [...] !Patient notification of lab results 1 - [facility]. The test(s) that you had done were/was [...] antibiotics. Pt. decided he will go to [place] [facility] You should call our office if [...] Range Facility Colonoscopy Reporton 024 Colonoscopy Report [facility] Medical Records Department [address] [place] [address] Colonoscopy Report MR#: [id number] Acct: [id number] Name: JOE CLARK Rep #: [id number] : 1980 43 From: Nehemias Beauchamp MD PCP: Dr. Humberto Dsouza MD Status:[facility] Patient Name: Joe Clark Procedure Date: 01/06/2024 [...] 1 week. Procedure Code(s): --- Professional --- 21674, Colonoscopy, flexible; with removal of tumor(s), polyp(s), or other lesion(s) by snare technique Diagnosis Code(s): --- Professional --- D12.5, Benign neoplasm of sigmoid colon K57.32, Diverticulitis of large intestine without perforation or abscess without bleeding K57.30, Diverticulosis of large intestine without perforation or abscess without bleeding CPT copyright 2021 [employer]. All rights reserved. The codes documented in this report are preliminary and upon coffee roaster review may be revised to meet current compliance requirements. Nehemias Beauchamp MD 01/06/2024 8:14:27 AM This report has been signed electronically. Number of Addenda: 0 Note Initiated On: 01/06/2024 7:19 AM 01/06/24 0815 Date Nehemias Beauchamp MD Cosigner Signature: Date (if indicated) CC: Dr. Nehemias Beauchamp MD; Dr. Humberto Dsouza MD Date Dictated: 01/06/24718 Date Transcribed: Cover Inspector: RITCHIE Garrison [facility] No Panel Informationon 01-06 [facility] [employer]; [facility] [employer]; [facility] [employer] Surgery Specimen Level Layne 01-06-2024 Surgery Specimen Level IV Patient Age/Sex Location Account Attending Physician JOE CLARK 43/M EN [id number] Dr. Nehemias Beauchamp MD Specimen: [id number] Received: 01/06/24 Status: MILTON Che Num: [id number] Spec Type: COLON BX Subm Dr: Dr. [...] one cassette. / SJ:ashley 01/09/2024 TC:5 CPT: 25321 Patient Age/Sex Location Account Attending Physician JOE CLARK 43/M EN [id number] Dr. Nehemias Beauchamp MD Signed (signature on file) Dr. Naga Gruber DO 01/10/24 1216 Normal [facility] Comment on above: Performed By: #### P KELI ####[facility] [address] [place], [place], [id number] No Panel Informationon 11-22 [facility], [facility]. Surgery Visit Reporton 11-15 Surgery Visit Report [facility] [address] [place] [address] OFFICE VISIT Date of Service: 11/15/23 MR#: [id number] Acct: [id number] Name: JOE CLARK Rep #: [id number] : 1980 Provider: Dr. Nehemias garcia MD Age/Sex: 43/M Location: [facility] Status: Signed Intake Vital Signs 11/03/23 10:18 [...] that his bowels been regular and unremarkable. [facility] Musculoskeletal: Yes arthritis Gastro Gastrointestinal: Yes abdominal [...] K57.20 11/15/23 1724 Date Nehemias Beauchamp MD [facility] Signature: Date (if applicable) CC: Normal [facility] Surgery Visit Reporton 11-10 Surgery Visit Report [facility] [address] [place] [address] OFFICE VISIT Date of Service: 11/10/23 MR#: [id number] Acct: [id number] Name: JOE CLARK Rep #: [id number] : 1980 Provider: Dr. Nehemias garcia MD Age/Sex: 43/M Location: [facility] Status: Signed Intake Vital Signs 11/03/23 10:18 [...] that his bowels been regular and unremarkable. [facility] Musculoskeletal: Yes arthritis Gastro Gastrointestinal: Yes abdominal [...] Cosigner Signature: Date (if applicable) CC: Normal [facility] Culture, Anaerobic Any Sourc sneha 11-09-2023 CUAN [...] caccae Beta Lactamase-Reportable Positive Schaalia turicensis Normal [facility] Comment on above: Performed By: #### M 100.2000, M100.3000, M100.4001 ####[facility] [address] [place], [place], [address] CBC W/Diff, Automatedon 10-21 PATH REV Reviewed [facility] Comment on above: Result Comment: Neut rophilic leukocytosis with left shift. Clinical correlation necessary. Taj Jimenez M.D. 11/07/23 AMENDED REPORT 11/07/23 1324 PATH REV previously reported as: March foll Performed By: #### L 501.5200, L500.2500, L100.0100, L501.2300 #### [facility] [address] [place], [address] PATH REV Reviewed Normal [facility] Comment on above: Result Comment: Neut rophilic leukocytosis with left shift. Clinical correlation necessary. Taj Jimenez M.D. 11/07/23 AMENDED REPORT 11/07/23 1318 PATH REV previously reported as: March foll Performed By: #### L 100.0100, L501.2300, L500.2500, L501.5200 ####[facility] [address] [place], [address] Wound Cultureon 11-07-2023 WC Escherichia coli Amount [...] S Vancomycin Islt LUZ 0.5 S Normal [facility] Comment on above: Performed By: #### M 100.2000, M100.3000, M100.4001 ####[facility] [address] [place], [address] Basic Metabolic Profile (BMP )on 11-06-2023 BUN Normal - [facility] Comment on above: Result Comment: Canc elled via OM: Order cancelled - Patient discharged Performed By: #### L 100.0100, L500.2500 ####[facility] [address] [place], [address] BUN/CRE Normal - [facility] Comment on above: Result Comment: Canc elled via OM: Order cancelled - Patient discharged Performed By: #### L 100.0100, L500.2500 ####[facility] [address] [place], [address] CA,Total Normal 8.5-10.1 [facility] Comment on above: Result Comment: Canc elled via OM: Order cancelled - Patient discharged Performed By: #### L 100.0100, L500.2500 ####[facility] [address] [place], [address] CL Normal 98-107 [facility] Comment on above: Result Comment: Canc elled via OM: Order cancelled - Patient discharged Performed By: #### L 100.0100, L500.2500 ####[facility] [address] [place], [address] CO2 Normal 21.0-32.0 [facility] Comment on above: Result Comment: Canc elled via OM: Order cancelled - Patient discharged Performed By: #### L 100.0100, L500.2500 ####[facility] [address] [place], [address] CREAT,SERUM Normal 0.70-1.30 [facility] Comment on above: Result Comment: Canc elled via OM: Order cancelled - Patient discharged Performed By: #### L 100.0100, L500.2500 ####[facility] [address] [place], [address] EST GFR Normal >60 [facility] Comment on above: Result Comment: Canc elled via OM: Order cancelled - Patient discharged Performed By: #### L 100.0100, L500.2500 ####[facility] [address] [place], [address] EST GFR - AA Normal >60 [facility] Comment on above: Result Comment: Canc elled via OM: Order cancelled - Patient discharged Performed By: #### L 100.0100, L500.2500 ####[facility] [address] [place], [address] GAP Normal 5-15 [facility] Comment on above: Result Comment: Canc elled via OM: Order cancelled - Patient discharged Performed By: #### L 100.0100, L500.2500 ####[facility] [address] [place], [address] GLU Normal 74-106 [facility] Comment on above: Result Comment: Canc elled via OM: Order cancelled - Patient discharged Performed By: #### L 100.0100, L500.2500 ####[facility] [address] [place], [address] Potassium Normal 3.5-5.1 [facility] Comment on above: Result Comment: Canc elled via OM: Order cancelled - Patient discharged Performed By: #### L 100.0100, L500.2500 ####[facility] [address] [place], [address] Basic Metabolic Profile (BMP) Normal 136-145 [facility] Comment on above: Result Comment: Canc elled via OM: Order cancelled - Patient discharged Performed By: #### L 100.0100, L500.2500 ####[facility] [address] [place], [address] CBC W/Diff, Automatedon 12- Absolute Neut Normal 2.0-7.7 [facility] Comment on above: Result Comment: Canc elled via OM: Order cancelled - Patient discharged Performed By: #### L 100.0100, L500.2500 ####[facility] [address] [place], [address] HCT Normal 40-54 [facility] Comment on above: Result Comment: Canc elled via OM: Order cancelled - Patient discharged Performed By: #### L 100.0100, L500.2500 ####[facility] [address] [place], [address] HGB Normal 13.0-16.5 [facility] Comment on above: Result Comment: Canc elled via OM: Order cancelled - Patient discharged Performed By: #### L 100.0100, L500.2500 ####[facility] [address] [place], [address] MCH Normal 27.0-32.0 [facility] Comment on above: Result Comment: Canc elled via OM: Order cancelled - Patient discharged Performed By: #### L 100.0100, L500.2500 ####[facility] [address] [place], [address] MCHC Normal 32-36 [facility] Comment on above: Result Comment: Canc elled via OM: Order cancelled - Patient discharged Performed By: #### L 100.0100, L500.2500 ####[facility] [address] [place], [address] MCV Normal 80-94 [facility] Comment on above: Result Comment: Canc elled via OM: Order cancelled - Patient discharged Performed By: #### L 100.0100, L500.2500 ####[facility] [address] [place], [address] NEUT% Normal 47-70 [facility] Comment on above: Result Comment: Canc elled via OM: Order cancelled - Patient discharged Performed By: #### L 100.0100, L500.2500 ####[facility] [address] [place], [address] PLT Normal 150-450 [facility] Comment on above: Result Comment: Canc elled via OM: Order cancelled - Patient discharged Performed By: #### L 100.0100, L500.2500 ####[facility] [address] [place], [address] RBC Normal 4.6-6.2 [facility] Comment on above: Result Comment: Canc elled via OM: Order cancelled - Patient discharged Performed By: #### L 100.0100, L500.2500 ####[facility] [address] [place], [address] RDW CV Normal 11.6-14.6 [facility] Comment on above: Result Comment: Canc elled via OM: Order cancelled - Patient discharged Performed By: #### L 100.0100, L500.2500 ####[facility] [address] [place], [address] RDW SD Normal 35.1-43.9 [facility] Comment on above: Result Comment: Canc elled via OM: Order cancelled - Patient discharged Performed By: #### L 100.0100, L500.2500 ####[facility] [address] [place], [address] WBC Normal 4.4-11.0 [facility] Comment on above: Result Comment: Canc elled via OM: Order cancelled - Patient discharged Performed By: #### L 100.0100, L500.2500 ####[facility] [address] [place], [address] Absolute lymphocyte countOrd ered By: Nehemias Beauchamp on 11-05-2023 Lymphocytes Auto (Unsp spec) [#/Vol] 1.62 10*3/uL 0.83-4.51 [facility] Basic Metabolic Profile (BMP )on 11-05-2023 BUN/CRE 9.5 RATIO Low 10-20 [facility] Comment on above: Performed By: #### L 501.5200, L500.2500, L100.0100, L501.2300 #### [facility] [address] [place], [address] CA,Total 8.2 mg/dL Low 8.5-10.1 [facility] Comment on above: Performed By: #### L 501.5200, L500.2500, L100.0100, L501.2300 #### [facility] [address] [place], [address] Chloride [Moles/Vol] 103 mmol/L Normal 98-107 [facility] Comment on above: Performed By: #### L 501.5200, L500.2500, L100.0100, L501.2300 #### [facility] [address] [place], [address] CO2 [Moles/Vol] 27.0 mmol/L Normal 21.0-32.0 [facility] Comment on above: Performed By: #### L 501.5200, L500.2500, L100.0100, L501.2300 #### [facility] [address] [place], [address] Creatinine [Mass/Vol] 0.74 mg/dL Normal 0.70-1.30 [facility] Comment on above: Result Comment: The validity of the calculated GFR GFRAA in patients over 70 years has not been determined. Clinical correlation is essential. Performed By: #### L 501.5200, L500.2500, L100.0100, L501.2300 #### [facility] [address] [place], [address] ECRCL 132.90 ml/min Normal [facility] Comment on above: Performed By: #### L 501.5200, L500.2500, L100.0100, L501.2300 #### [facility] [address] [place], [address] EST GFR - AA 148 mL/min Normal >60 [facility] Comment on above: Result Comment: Afri can [employer] [employer] GFR Calc Performed By: #### L 501.5200, L500.2500, L100.0100, L501.2300 #### [facility] [address] [place], [address] GAP 5 Normal 5-15 [facility] Comment on above: Performed By: #### L 501.5200, L500.2500, L100.0100, L501.2300 #### [facility] [address] [place], [address] GFR/1.73 sq M.predicted among non-blacks MDRD (S/P/Bld) [Vol rate/Area] 122 mL/min/{1.73_m2} Normal >60 [facility] Comment on above: Result Comment: Non- GFR Calc Performed By: #### L 501.5200, L500.2500, L100.0100, L501.2300 #### [facility] [address] [place], [address] Glucose [Mass/Vol] 87 mg/dL Normal 74-106 [facility] Comment on above: Performed By: #### L 501.5200, L500.2500, L100.0100, L501.2300 #### [facility] [address] [place], [address] Potassium [Moles/Vol] 3.4 mmol/L Low 3.5-5.1 [facility] Comment on above: Performed By: #### L 501.5200, L500.2500, L100.0100, L501.2300 #### [facility] [address] [place], [address] Sodium [Moles/Vol] 135 mmol/L Low 136-145 [facility] Comment on above: Performed By: #### L 501.5200, L500.2500, L100.0100, L501.2300 #### [facility] [address] [place], [address] Urea nitrogen [Mass/Vol] 7 mg/dL Normal 7-18 [facility] Comment on above: Performed By: #### L 501.5200, L500.2500, L100.0100, L501.2300 #### [facility] [address] [place], [address] Basophil percentageOrdered B y: Nehemias Beauchamp on 11-05-2023 Basophil percentage Not Reportable [facility] Basophil percentage 2.9 mg/dL 2.5-4.9 [facility] Chloride [Moles/Vol] 103 mmol/L 98-107 [facility] Glucose [Mass/Vol] 87 mg/dL 74-106 [facility] Neutrophils (Bld) [#/Vol] 14.9 10*3/uL 2.0-7.7 [facility] Potassium [Moles/Vol] 3.4 mmol/L 3.5-5.1 [facility] Sodium [Moles/Vol] 135 mmol/L 136-145 [facility] WBC (Bld) [#/Vol] 18.0 10*3/uL 4.4-11.0 [facility] Blood band neutrophil count as percentage of total leukocytesOrdered By: Nehemias Beauchamp on 11-05-2023 Band form neutrophils/100 WBC (Bld) 3 % 0-5 [facility] Blood erythrocytes count (nu mber/volume)Ordered By: Nehemias Beauchamp on 11-05-2023 RBC (Bld) [#/Vol] 4.78 10*6/uL 4.6-6.2 [facility] Blood hemoglobin measurement (mass/volume)Ordered By: Nehemias Beauchamp on 11-05-2023 Hemoglobin (Bld) [Mass/Vol] 14.5 g/dL 13.0-16.5 [facility] Blood lymphocytes/100 leukoc ytesOrdered By: Nehemias Beauchamp on 11-05-2023 Lymphocytes/100 WBC (Bld) 9 % 19-41 [facility] Blood monocytes/100 leukocyt esOrdered By: Nehemias Beauchamp on 11-05-2023 Monocytes/100 WBC (Bld) 5 % 0-10 [facility] Blood platelet adequacy dete ction by light microscopyOrdered By: Nehemias Beauchamp on 11-05-2023 Platelets LM Ql (Bld) ADEQUATE ADEQ [facility] Blood platelet mean volumeOr dered By: Nehemias Beauchamp on 11-05-2023 Platelet mean volume (Bld) [Entitic vol] 10.2 fL 6.2-12.0 [facility] Blood segmented neutrophils/ 100 leukocytesOrdered By: Nehemias Beauchamp on 11-05-2023 Segmented neutrophils/100 WBC (Bld) 80 % 47-70 [facility] Determination of erythrocyte mean corpuscular volume (MCV)Ordered By: Nehemias Beauchamp on 11-05-2023 MCV (RBC) [Entitic vol] 89.7 fL 80-94 [facility] Hematocrit Auto (Bld) [Volum e fraction]Ordered By: Nehemias Beauchamp on 11-05-2023 Hematocrit (Bld) [Volume fraction] 42.9 % 40-54 [facility] - Chemistry and C hemistry - challengeOrdered By: Nehemias Beauchamp on 11-05-2023 CO2 [Moles/Vol] 27.0 mmol/L 21.0-32.0 [facility] Magnesium [Mass/Vol] 2.4 mg/dL 1.6-2.6 [facility] Urea nitrogen/Creatinine [Mass ratio] 9.5 mg/mg 10-20 [facility] - Hematology and Cell countsOrdered By: Nehemias Beauchamp on 11-05-2023 Erythrocyte distribution width (RBC) [Entitic vol] 48.1 fL 35.1-43.9 [facility] Erythrocyte distribution width (RBC) [Ratio] 14.5 % 11.6-14.6 [facility] MCH (RBC) [Entitic mass] 30.3 pg 27.0-32.0 [facility] Myelocytes/100 WBC (Bld) 3 % 0-0 [facility] MCHC Auto (RBC) [Mass/Vol]Or dered By: Nehemias Beauchamp on 11-05-2023 MCHC (RBC) [Mass/Vol] 33.8 g/dL 32-36 [facility] Magnesiumon 11-05-2023 Magnesium [Mass/Vol] 2.4 mg/dL Normal 1.6-2.6 [facility] Comment on above: Performed By: #### L 501.5200, L500.2500, L100.0100, L501.2300 #### [facility] [address] [place], [address] No Panel InformationOrdered By: Nehemias Beauchamp on 11-05-2023 Estimated Creatinine Clearance Calc 132.90 ml/min [facility] Estimated GFR (MDRD) Amer 148 mL/min >60 [facility] Comment on above: GFR Calc Estimated GFR (MDRD) Non-Af Amer 122 mL/min >60 [facility] Comment on above: Non- GFR Calc Phosphoruson 11-05-2023 Phosphate [Mass/Vol] 2.9 mg/dL Normal 2.5-4.9 [facility] Comment on above: Performed By: #### L 501.5200, L500.2500, L100.0100, L501.2300 #### [facility] [address] [place], [address] Platelets bldOrdered By: Luz Beauchamp on 11-05-2023 Platelets (Bld) [#/Vol] 408 10*3/uL 150-450 [facility] RBC morphologyOrdered By: Merissa Beauchamp on 11-05-2023 RBC morphology finding Nom (Bld) NORM C+C NORMAL NORM C&C [facility] Review by pathologistOrdered By: Nehemias Beauchamp on 11-05-2023 Pathologist review Hernesto (Unsp spec) [Interp] Reviewed [facility] Comment on above: Previous reported re sult: Tatiana bhatti Edited by: REGIS on 11/07/23:1324Neutrophilic leukocytosis with left shift.Clinical correlation necessary.Taj Jimenez M.D. 11/07/23 AMENDED REPORT 11/07/23 1324 PATH REV previously reported as: Tatiana bhatti Pathologist review Hernesto (Unsp spec) [Interp] Tatiana bhatti [facility] Serum or plasma calcium adam urement (mass/volume)Ordered By: Nehemias Beauchamp on 11-05-2023 Calcium [Mass/Vol] 8.2 mg/dL 8.5-10.1 [facility] Serum or plasma creatinine m easurement (mass/volume)Ordered By: Nehemias Beauchamp on 11-05-2023 Creatinine [Mass/Vol] 0.74 mg/dL 0.70-1.30 [facility] Comment on above: The validity of the calculated GFR & GFRAA in patients over 70 years has not been determined. Clinical correlation is essential. Serum or plasma urea nitroge n measurement (mass/volume)Ordered By: Nehemias Beauchamp on 11-05-2023 Urea nitrogen [Mass/Vol] 7 mg/dL 7-18 [facility] Thin prep Papanicolaou smear with manual screeningOrdered By: Nehemias Beauchamp on 11-05-2023 Thin prep Papanicolaou smear with manual screening 5 5-15 [facility] Total cell countOrdered By: Nehemias Beauchamp on 11-05-2023 Cells counted Molgen (Bld/Tiss) [#] 100 MANUAL DIFF [facility] Abdomen/Pelvis WITH Contrast on 11-04-2023 Abdomen/Pelvis WITH Contrast [facility] [address] [place] [address] Abdomen/Pelvis WITH Contrast MR#: [id number] Acct: [id number] Name: JOE CLARK Rep #: [id number] : 1980 M 42 From: Yonatan Obando MD PCP: Dr. Humberto Dsouza MD Status: ADM IN Study: Abdomen/Pelvis WITH Contrast Date of Exam: Exam# [id number] Ordering Dr: Debbie Rodríguez P A-C ADDENDUM by Dr. Yonatan Obando MD on 11/04/23 at 0815 ADDENDUM [id number] A prior CT abdomen pelvis from an [...] Rodríguez; Dr. Humberto Dsouza MD * Signed [id number] EXAM: CT abdomen and pelvis with contrast. [...] and a 6.2 cm abscess. Electronically Signed: Yonatan Obando MD at 7:42 EST , CT/Abdomen/Pelvis WITH Contrast IMPRESSION: undefined CC: LM Rodríguez; Dr. Humberto Dsouza MD Cover Inspector: Signed Normal [facility] Bacteria identified Anaer cx Nom (Unsp spec)Ordered By: Nehemias Beauchamp on 11-04-2023 Anaerobic Culture Bacteroides caccae [facility] Anaerobic Culture Schaalia turgerbernsis [facility] Bacteria identified Cx Nom ( Wound)Ordered By: Nehemias Beauchamp on 11-04-2023 Wound Culture Escherichia coli [facility] Wound Culture Streptococcus sanguinis [facility] Basic Metabolic Profile (BMP )on 11-04-2023 BUN/CRE 10.5 RATIO Normal 10-20 [facility] Comment on above: Performed By: #### L 100.0100, L501.2300, L500.2500, L501.5200 ####[facility] [address] [place], [address] CA,Total 8.1 mg/dL Low 8.5-10.1 [facility] Comment on above: Performed By: #### L 100.0100, L501.2300, L500.2500, L501.5200 ####[facility] [address] [place], [address] Chloride [Moles/Vol] 99 mmol/L Normal 98-107 [facility] Comment on above: Performed By: #### L 100.0100, L501.2300, L500.2500, L501.5200 ####[facility] [address] [place], [address] CO2 [Moles/Vol] 29.0 mmol/L Normal 21.0-32.0 [facility] Comment on above: Performed By: #### L 100.0100, L501.2300, L500.2500, L501.5200 ####[facility] [address] [place], [address] Creatinine [Mass/Vol] 0.76 mg/dL Normal 0.70-1.30 [facility] Comment on above: Result Comment: The validity of the calculated GFR GFRAA in patients over 70 years has not been determined. Clinical correlation is essential. Performed By: #### L 100.0100, L501.2300, L500.2500, L501.5200 ####[facility] [address] [place], [address] ECRCL 129.40 ml/min Normal [facility] Comment on above: Performed By: #### L 100.0100, L501.2300, L500.2500, L501.5200 ####[facility] [address] [place], [address] EST GFR - AA 144 mL/min Normal >60 [facility] Comment on above: Result Comment: Afri can [place] GFR Calc Performed By: #### L 100.0100, L501.2300, L500.2500, L501.5200 ####[facility] [address] [place], [address] GAP 6 Normal 5-15 [facility] Comment on above: Performed By: #### L 100.0100, L501.2300, L500.2500, L501.5200 ####[facility] [address] [place], [address] GFR/1.73 sq M.predicted among non-blacks MDRD (S/P/Bld) [Vol rate/Area] 119 mL/min/{1.73_m2} Normal >60 [facility] Comment on above: Result Comment: Non- GFR Calc Performed By: #### L 100.0100, L501.2300, L500.2500, L501.5200 ####[facility] [address] [place], [address] Glucose [Mass/Vol] 90 mg/dL Normal 74-106 [facility] Comment on above: Performed By: #### L 100.0100, L501.2300, L500.2500, L501.5200 ####[facility] [address] [place], [address] Potassium [Moles/Vol] 3.2 mmol/L Low 3.5-5.1 [facility] Comment on above: Performed By: #### L 100.0100, L501.2300, L500.2500, L501.5200 ####[facility] [address] [place], [address] Sodium [Moles/Vol] 134 mmol/L Low 136-145 [facility] Comment on above: Performed By: #### L 100.0100, L501.2300, L500.2500, L501.5200 ####[facility] [address] [place], [address] Urea nitrogen [Mass/Vol] 8 mg/dL Normal 7-18 [facility] Comment on above: Performed By: #### L 100.0100, L501.2300, L500.2500, L501.5200 ####[facility] [address] [place], [address] Blood eosinophils/100 leukoc ytesOrdered By: Nehemias Beauchamp on 11-04-2023 Eosinophils/100 WBC (Bld) 1 % 0-5 [facility] Blood metamyelocytes/100 benny kocytesOrdered By: Nehemias Beauchamp on 11-04-2023 Metamyelocytes/100 WBC (Bld) 3 % 0-1 [facility] CBC W/Diff, Automatedon 10-21 PATH REV Reviewed Normal [facility] Comment on above: Result Comment: Neut rophilic leukocytosis. Clinical correlation necessary. Taj Jimenez M.D. 11/04/23 AMENDED REPORT 11/04/23 1320 PATH REV previously reported as: March magy Performed By: #### L 100.0100, L501.5200, L501.2300, L500.2500 ####[facility] [address] [place], [address] Absolute Neut Normal 2.0-7.7 [facility] Comment on above: Result Comment: Canc elled via OM: Duplicate Order Performed By: #### L 100.0100, L300.3900, L300.4310 ####[facility] [address] [place], [address] HCT Normal 40-54 [facility] Comment on above: Result Comment: Canc elled via OM: Duplicate Order Performed By: #### L 100.0100, L300.3900, L300.4310 ####[facility] [address] [place], [address] HGB Normal 13.0-16.5 [facility] Comment on above: Result Comment: Canc elled via OM: Duplicate Order Performed By: #### L 100.0100, L300.3900, L300.4310 ####[facility] [address] [place], [address] MCH Normal 27.0-32.0 [facility] Comment on above: Result Comment: Canc elled via OM: Duplicate Order Performed By: #### L 100.0100, L300.3900, L300.4310 ####[facility] [address] [place], [address] MCHC Normal 32-36 [facility] Comment on above: Result Comment: Canc elled via OM: Duplicate Order Performed By: #### L 100.0100, L300.3900, L300.4310 ####[facility] [address] [place], [address] MCV Normal 80-94 [facility] Comment on above: Result Comment: Canc elled via OM: Duplicate Order Performed By: #### L 100.0100, L300.3900, L300.4310 ####[facility] [address] [place], [address] NEUT% Normal 47-70 [facility] Comment on above: Result Comment: Canc elled via OM: Duplicate Order Performed By: #### L 100.0100, L300.3900, L300.4310 ####[facility] [address] [place], [address] PLT Normal 150-450 [facility] Comment on above: Result Comment: Canc elled via OM: Duplicate Order Performed By: #### L 100.0100, L300.3900, L300.4310 ####[facility] [address] [place], [address] RBC Normal 4.6-6.2 [facility] Comment on above: Result Comment: Canc elled via OM: Duplicate Order Performed By: #### L 100.0100, L300.3900, L300.4310 ####[facility] [address] [place], [address] RDW CV Normal 11.6-14.6 [facility] Comment on above: Result Comment: Canc elled via OM: Duplicate Order Performed By: #### L 100.0100, L300.3900, L300.4310 ####[facility] [address] [place], [address] RDW SD Normal 35.1-43.9 [facility] Comment on above: Result Comment: Canc elled via OM: Duplicate Order Performed By: #### L 100.0100, L300.3900, L300.4310 ####[facility] [address] [place], [address] WBC Normal 4.4-11.0 [facility] Comment on above: Result Comment: Canc elled via OM: Duplicate Order Performed By: #### L 100.0100, L300.3900, L300.4310 ####[facility] [address] [place], [address] CT Guidance Abscess Drg w/Ca thon 11-04-2023 CT Guidance Abscess Drg w/Cath [facility] [address] [place] [address] CT Guidance Abscess Drg w/Cath MR#: [id number] Acct: [id number] Name: JOE CLARK Rep #: [id number] : 1980 M 42 From: Lobo perdue MD PCP: Dr. Humberto Dsouza MD Status: ADM IN Study: CT Guidance Abscess Drg w/Cath Date of Exam: 1 01/05/23 Exam# [id number] Ordering Dr: Nehemias Beauchamp MD [id number] PROCEDURE: CT DIRECTED ABSCESS DRAINAGE, PERITONEAL DATE [...] needle and fluid was aspirated. An 8 Argentine Drainage catheter was then inserted into the [...] Nehemias Beauchamp MD; Dr. Humberto Dsouza MD Cover Inspector: Signed Normal [facility] Gram Stainon 11-04-2023 GS Gram Stain 4+ White Blood Cells 4+ Gram variable khalida 4+ Gram positive cocci Normal [facility] Comment on above: Performed By: #### M 100.2000, M100.3000, M100.4001 ####[facility] [address] [place], [address] Gram stain for investigation of transfusion reactionOrdered By: Nehemias Beauchamp on 11-04-2023 Microscopic observation Gram stain Nom (Unsp spec) [facility] Laboratory - CoagulationOrde red By: Jaclyn Delong on 11-04-2023 aPTT Coag (Bld) [Time] 33.2 s 24.1-36.2 [facility] PT Coag (PPP) [Time] 14.1 s 11.7-14.9 [facility] Magnesiumon 11-04-2023 Magnesium [Mass/Vol] 2.5 mg/dL Normal 1.6-2.6 [facility] Comment on above: Performed By: #### L 100.0100, L501.2300, L500.2500, L501.5200 ####[facility] [address] [place], [address] Partial Thromboplast Timeon 11-04-2023 aPTT Coag (Bld) [Time] 33.2 s Normal 24.1-36.2 [facility] Comment on above: Performed By: #### L 100.0100, L300.3900, L300.4310 ####[facility] [address] [place], [address] Phosphoruson 11-04-2023 Phosphate [Mass/Vol] 2.9 mg/dL Normal 2.5-4.9 [facility] Comment on above: Performed By: #### L 100.0100, L501.2300, L500.2500, L501.5200 ####[facility] [address] [place], [address] Prothrombin Time w/INRon INR Coag (PPP) [Relative time] 1.1 {INR} Normal [facility] Comment on above: Performed By: #### L 100.0100, L300.3900, L300.4310 ####[facility] [address] [place], [address] PT Coag (PPP) [Time] 14.1 s Normal 11.7-14.9 [facility] Comment on above: Performed By: #### L 100.0100, L300.3900, L300.4310 ####[facility] [address] [place], [address] Whole blood international no rmalized ratio (INR)Ordered By: Jaclyn Delong on 11-04-2023 INR Coag (Bld) [Relative time] 1.1 {INR} [facility] Basic Metabolic Profile (BMP )on 11-03-2023 BUN/CRE 14.2 RATIO Normal 10-20 [facility] Comment on above: Performed By: #### L 100.0100, L501.5200, L501.2300, L500.2500 ####[facility] [address] [place], [address] CA,Total 8.2 mg/dL Low 8.5-10.1 [facility] Comment on above: Performed By: #### L 100.0100, L501.5200, L501.2300, L500.2500 ####[facility] [address] [place], [address] Chloride [Moles/Vol] 101 mmol/L Normal 98-107 [facility] Comment on above: Performed By: #### L 100.0100, L501.5200, L501.2300, L500.2500 ####[facility] [address] [place], [address] CO2 [Moles/Vol] 28.0 mmol/L Normal 21.0-32.0 [facility] Comment on above: Performed By: #### L 100.0100, L501.5200, L501.2300, L500.2500 ####[facility] [address] [place], [address] Creatinine [Mass/Vol] 0.78 mg/dL Normal 0.70-1.30 [facility] Comment on above: Result Comment: The validity of the calculated GFR GFRAA in patients over 70 years has not been determined. Clinical correlation is essential. Performed By: #### L 100.0100, L501.5200, L501.2300, L500.2500 ####[facility] [address] [place], [address] ECRCL 126.09 ml/min Normal [facility] Comment on above: Performed By: #### L 100.0100, L501.5200, L501.2300, L500.2500 ####[facility] [address] [place], [address] EST GFR - AA 140 mL/min Normal >60 [facility] Comment on above: Result Comment: Afri can [place] GFR Calc Performed By: #### L 100.0100, L501.5200, L501.2300, L500.2500 ####[facility] [address] [place], [address] GAP 8 Normal 5-15 [facility] Comment on above: Performed By: #### L 100.0100, L501.5200, L501.2300, L500.2500 ####[facility] [address] [place], [address] GFR/1.73 sq M.predicted among non-blacks MDRD (S/P/Bld) [Vol rate/Area] 116 mL/min/{1.73_m2} Normal >60 [facility] Comment on above: Result Comment: Non- GFR Calc Performed By: #### L 100.0100, L501.5200, L501.2300, L500.2500 ####[facility] [address] [place], [address] Glucose [Mass/Vol] 89 mg/dL Normal 74-106 [facility] Comment on above: Performed By: #### L 100.0100, L501.5200, L501.2300, L500.2500 ####[facility] [address] [place], [address] Potassium [Moles/Vol] 3.1 mmol/L Low 3.5-5.1 [facility] Comment on above: Performed By: #### L 100.0100, L501.5200, L501.2300, L500.2500 ####[facility] [address] [place], [address] Sodium [Moles/Vol] 137 mmol/L Normal 136-145 [facility] Comment on above: Performed By: #### L 100.0100, L501.5200, L501.2300, L500.2500 ####[facility] [address] [place], [address] Urea nitrogen [Mass/Vol] 11 mg/dL Normal 7-18 [facility] Comment on above: Performed By: #### L 100.0100, L501.5200, L501.2300, L500.2500 ####[facility] [address] [place], [address] CBC W/Diff, Automatedon 10-21 PATH REV Reviewed Normal [facility] Comment on above: Result Comment: Leuk ocytosis. Clinical correlation necessary. Taj Jimenez M.D. 11/03/23 AMENDED REPORT 11/03/23 1356 PATH REV previously reported as: March magy Performed By: #### L 500.4050, L100.0100 #### [facility] [address] [place], [address] Magnesiumon 11-03-2023 Magnesium [Mass/Vol] 2.7 mg/dL High 1.6-2.6 [facility] Comment on above: Performed By: #### L 100.0100, L501.5200, L501.2300, L500.2500 ####[facility] [address] [place], [address] Phosphoruson 11-03-2023 Phosphate [Mass/Vol] 2.7 mg/dL Normal 2.5-4.9 [facility] Comment on above: Performed By: #### L 100.0100, L501.5200, L501.2300, L500.2500 ####[facility] [address] [place], [address] Absolute lymphocyte countOrd ered By: Kentrell Solano on 11-02-2023 Lymphocytes Auto (Unsp spec) [#/Vol] 2.54 10*3/uL 0.83-4.51 [facility] Basophil percentageOrdered B y: Kentrell Solano on 11-02-2023 Basophil percentage Not Reportable [facility] Bilirubin [Mass/Vol] 1.20 mg/dL 0.20-1.00 [facility] Comment on above: For patients on eltr ombopag therapy, use of Dimension [place] TBIL is not recommended. Chloride [Moles/Vol] 93 mmol/L 98-107 [facility] Glucose [Mass/Vol] 116 mg/dL 74-106 [facility] Comment on above: Fasting Glucose resu lt from 100 to 125 mg/dL suggests IMPAIRED HOMEOSTASIS per A.D.A. criteria. Neutrophils (Bld) [#/Vol] 22.8 10*3/uL 2.0-7.7 [facility] Potassium [Moles/Vol] 3.4 mmol/L 3.5-5.1 [facility] Comment on above: Slight Hemolysis, Re sult may be falsely increased. Protein [Mass/Vol] 8.1 g/dL 6.4-8.2 [facility] Sodium [Moles/Vol] 130 mmol/L 136-145 [facility] WBC (Bld) [#/Vol] 28.2 10*3/uL 4.4-11.0 [facility] Blood band neutrophil count as percentage of total leukocytesOrdered By: Kentrell Solano on 11-02-2023 Band form neutrophils/100 WBC (Bld) 8 % 0-5 [facility] Blood eosinophils/100 leukoc ytesOrdered By: Kentrell Solano on 11-02-2023 Eosinophils/100 WBC (Bld) 1 % 0-5 [facility] Blood erythrocytes count (nu mber/volume)Ordered By: Kentrell Solano on 11-02-2023 RBC (Bld) [#/Vol] 4.95 10*6/uL 4.6-6.2 [facility] Blood hemoglobin measurement (mass/volume)Ordered By: Kentrell Solano on 11-02-2023 Hemoglobin (Bld) [Mass/Vol] 15.0 g/dL 13.0-16.5 [facility] Blood lymphocytes/100 leukoc ytesOrdered By: Kentrell Solano on 11-02-2023 Lymphocytes/100 WBC (Bld) 9 % 19-41 [facility] Blood metamyelocytes/100 benny kocytesOrdered By: Kentrell Solano on 11-02-2023 Metamyelocytes/100 WBC (Bld) 1 % 0-1 [facility] Blood monocytes/100 leukocyt esOrdered By: Kentrell Solano on 11-02-2023 Monocytes/100 WBC (Bld) 5 % 0-10 [facility] Blood platelet adequacy dete ction by light microscopyOrdered By: Kentrell Solano on 11-02-2023 Platelets LM Ql (Bld) ADEQUATE ADEQ [facility] Blood platelet mean volumeOr dered By: Kentrell Solano on 11-02-2023 Platelet mean volume (Bld) [Entitic vol] 10.4 fL 6.2-12.0 [facility] Blood segmented neutrophils/ 100 leukocytesOrdered By: Kentrell Solano on 11-02-2023 Segmented neutrophils/100 WBC (Bld) 73 % 47-70 [facility] Comprehensive Metabolic Prof ilon 11-02-2023 Albumin [Mass/Vol] 3.3 g/dL Normal 3.2-5.0 [facility] Comment on above: Performed By: #### L 500.4050, L100.0100 #### [facility] [address] [place], [address] Albumin/Globulin [Mass ratio] 0.7 {ratio} Low 0.9-2.4 [facility] Comment on above: Performed By: #### L 500.4050, L100.0100 #### [facility] [address] [place], [address] ALK P 148 U/L High 45-117 [facility] Comment on above: Performed By: #### L 500.4050, L100.0100 #### [facility] [address] [place], [address] ALT [Catalytic activity/Vol] 105 U/L High 16-61 [facility] Comment on above: Performed By: #### L 500.4050, L100.0100 #### [facility] [address] [place], [address] AST [Catalytic activity/Vol] 58 U/L High 15-37 [facility] Comment on above: Result Comment: Slig ht Hemolysis, Result may be falsely increased. Performed By: #### L 500.4050, L100.0100 #### [facility] [address] [place], [address] Bilirubin [Mass/Vol] 1.20 mg/dL High 0.20-1.00 [facility] Comment on above: Result Comment: For patients on eltrombopag therapy, use of Dim[employer] [place] TBIL is not recommended. Performed By: #### L 500.4050, L100.0100 #### [facility] [address] [place], [address] BUN/CRE 14.0 RATIO Normal 10-20 [facility] Comment on above: Performed By: #### L 500.4050, L100.0100 #### [facility] [address] [place], [address] CA,Total 9.3 mg/dL Normal 8.5-10.1 [facility] Comment on above: Performed By: #### L 500.4050, L100.0100 #### [facility] [address] [place], [address] Chloride [Moles/Vol] 93 mmol/L Low 98-107 [facility] Comment on above: Performed By: #### L 500.4050, L100.0100 #### [facility] [address] [place], [address] CO2 [Moles/Vol] 32.0 mmol/L Normal 21.0-32.0 [facility] Comment on above: Performed By: #### L 500.4050, L100.0100 #### [facility] [address] [place], [address] Creatinine [Mass/Vol] 1.14 mg/dL Normal 0.70-1.30 [facility] Comment on above: Result Comment: The validity of the calculated GFR GFRAA in patients over 70 years has not been determined. Clinical correlation is essential. Performed By: #### L 500.4050, L100.0100 #### [facility] [address] [place], [address] ECRCL 86.27 ml/min Normal [facility] Comment on above: Performed By: #### L 500.4050, L100.0100 #### [facility] [address] [place], [address] EST GFR - AA 90 mL/min Normal >60 [facility] Comment on above: Result Comment: Afri can [place] GFR Calc Performed By: #### L 500.4050, L100.0100 #### [facility] [address] [place], [address] GAP 5 Normal 5-15 [facility] Comment on above: Performed By: #### L 500.4050, L100.0100 #### [facility] [address] [place], [address] GFR/1.73 sq M.predicted among non-blacks MDRD (S/P/Bld) [Vol rate/Area] 74 mL/min/{1.73_m2} Normal >60 [facility] Comment on above: Result Comment: Non- GFR Calc Performed By: #### L 500.4050, L100.0100 #### [facility] [address] [place], [address] Globulin (S) [Mass/Vol] 4.8 g/dL High 2.2-4.2 [facility] Comment on above: Performed By: #### L 500.4050, L100.0100 #### [facility] [address] [place], [address] Glucose [Mass/Vol] 116 mg/dL High 74-106 [facility] Comment on above: Result Comment: Fast ing Glucose result from 100 to 125 mg/dL suggests IMPAIRED HOMEOSTASIS per A.D.A. criteria. Performed By: #### L 500.4050, L100.0100 #### [facility] [address] [place], [address] Potassium [Moles/Vol] 3.4 mmol/L Low 3.5-5.1 [facility] Comment on above: Result Comment: Slig ht Hemolysis, Result may be falsely increased. Performed By: #### L 500.4050, L100.0100 #### [facility] [address] [place], [address] Sodium [Moles/Vol] 130 mmol/L Low 136-145 [facility] Comment on above: Performed By: #### L 500.4050, L100.0100 #### [facility] [address] [place], [address] T PROT 8.1 g/dL Normal 6.4-8.2 [facility] Comment on above: Performed By: #### L 500.4050, L100.0100 #### [facility] [address] [place], [address] Urea nitrogen [Mass/Vol] 16 mg/dL Normal 7-18 [facility] Comment on above: Performed By: #### L 500.4050, L100.0100 #### [facility] [address] [place], [address] Determination of erythrocyte mean corpuscular volume (MCV)Ordered By: Kentrell Solano on 11-02-2023 MCV (RBC) [Entitic vol] 88.9 fL 80-94 [facility] Emergency Department Summary on 11-02-2023 Emergency Department Summary [facility] Medical Records Department [address] [place] [address] Emergency Department Summary 11/02/23 MR#: [id number] Acct: [id number] Name: JOE CLARK Rep #: [id number] : 1980 42 From: Kentrell Solano MD [...] he denies any past abdominal surgical history. [facility] Medical History no medical history Allergy/AdvReac [...] Absolute Lymphs (more content not included)... Normal [facility] Hematocrit Auto (Bld) [Volum e fraction]Ordered By: Kentrell Solano on 11-02-2023 Hematocrit (Bld) [Volume fraction] 44.0 % 40-54 [facility] - Chemistry and C hemistry - challengeOrdered By: Kentrell Solano on 11-02-2023 ALP [Catalytic activity/Vol] 148 U/L 45-117 [facility] ALT [Catalytic activity/Vol] 105 U/L 16-61 [facility] CO2 [Moles/Vol] 32.0 mmol/L 21.0-32.0 [facility] Globulin (S) [Mass/Vol] 4.8 g/dL 2.2-4.2 [facility] Urea nitrogen/Creatinine [Mass ratio] 14.0 mg/mg 10-20 [facility] - Hematology and Cell countsOrdered By: Kentrell Solano on 11-02-2023 Erythrocyte distribution width (RBC) [Entitic vol] 45.5 fL 35.1-43.9 [facility] Erythrocyte distribution width (RBC) [Ratio] 14.1 % 11.6-14.6 [facility] MCH (RBC) [Entitic mass] 30.3 pg 27.0-32.0 [facility] Myelocytes/100 WBC (Bld) 3 % 0-0 [facility] MCHC Auto (RBC) [Mass/Vol]Or dered By: Kentrell Solano on 11-02-2023 MCHC (RBC) [Mass/Vol] 34.1 g/dL 32-36 [facility] No Panel InformationOrdered By: Kentrell Solano on 11-02-2023 Estimated Creatinine Clearance Calc 86.27 ml/min [facility] Estimated GFR (MDRD) Amer 90 mL/min >60 [facility] Comment on above: GFR Calc Estimated GFR (MDRD) Non-Af Amer 74 mL/min >60 [facility] Comment on above: Non- GFR Calc Platelets bldOrdered By: Mis Solano on 11-02-2023 Platelets (Bld) [#/Vol] 370 10*3/uL 150-450 [facility] RBC morphologyOrdered By: Bryan Solano on 11-02-2023 RBC morphology finding Nom (Bld) NORM C+C NORMAL NORM C&C [facility] Review by pathologistOrdered By: Kentrell Solano on 11-02-2023 Pathologist review [place] (Unsp spec) [Interp] May foll [facility] Serum or plasma albumin adam urement (mass/volume)Ordered By: Kentrell Solano on 11-02-2023 Albumin [Mass/Vol] 3.3 g/dL 3.2-5.0 [facility] Serum or plasma albumin/glob ulin mass ratioOrdered By: Kentrell Solano on 11-02-2023 Albumin/Globulin [Mass ratio] 0.7 {ratio} 0.9-2.4 [facility] Serum or plasma calcium adam urement (mass/volume)Ordered By: Kentrell Solano on 11-02-2023 Calcium [Mass/Vol] 9.3 mg/dL 8.5-10.1 [facility] Serum or plasma creatinine m easurement (mass/volume)Ordered By: Kentrell oSlano on 11-02-2023 Creatinine [Mass/Vol] 1.14 mg/dL 0.70-1.30 [facility] Comment on above: The validity of the calculated GFR & GFRAA in patients over 70 years has not been determined. Clinical correlation is essential. Serum or plasma urea nitroge n measurement (mass/volume)Ordered By: Kentrell Solano on 11-02-2023 Urea nitrogen [Mass/Vol] 16 mg/dL 7-18 [facility] Thin prep Papanicolaou smear with manual screeningOrdered By: Kentrell Solano on 11-02-2023 Thin prep Papanicolaou smear with manual screening 58 U/L 15-37 [facility] Comment on above: Slight Hemolysis, Re sult may be falsely increased. Thin prep Papanicolaou smear with manual screening 5 5-15 [facility] Total cell countOrdered By: Kentrell Solano on 11-02-2023 Cells counted Molgen (Bld/Tiss) [#] 100 MANUAL DIFF [facility] .Auto Diffon 11-01-2023 Basophil, Absolute 0.0 10 3/mcL Normal 0.0-0.3 [facility] Comment on above: Performed By: #### C MP, ANEU, CBC, ADIFF, GFR #### [facility] [address] [place] [id number] Basophils/100 WBC (Bld) 0.2 % Normal 0.0-2.5 A [facility] ([place] Comment on above: Performed By: #### C MP, ANEU, CBC, ADIFF, GFR #### [address] [address] Eosinophil, Absolute 0.1 10 3/mcL Normal 0.0-0.7 [facility] [place] Comment on above: Performed By: #### C MP, ANEU, CBC, ADIFF, GFR #### [address] [address] Eosinophils/100 WBC (Bld) 0.5 % Normal 0.0-6.0 Formerly [facility], [facility] ([place] Comment on above: Performed By: #### C MP, ANEU, CBC, ADIFF, GFR #### [address] [address] Lymphocyte, Absolute 1.6 10 3/mcL Normal 0.9-4.3 [facility] [place] Comment on above: Performed By: #### C MP, ANEU, CBC, ADIFF, GFR #### [address] [address] Lymphocytes/100 WBC (Bld) 8.8 % Low 20.0-40.0 [facility]ly [facility], [facility] ([place] Comment on above: Performed By: #### C MP, ANEU, CBC, ADIFF, GFR #### [address] [address] Monocyte, Absolute 1.4 10 3/mcL Normal 0.1-1.4 [facility] [place] Comment on above: Performed By: #### C MP, ANEU, CBC, ADIFF, GFR #### [address] [address] Monocytes/100 WBC (Bld) 7.7 % Normal 2.0-13.0 A [facility] ([place] Comment on above: Performed By: #### C MP, ANEU, CBC, ADIFF, GFR #### [address] [address] Neutrophils/100 WBC (Bld) 82.8 % High 50.0-75.0 [facility]ly [facility], [facility] ([place] Comment on above: Performed By: #### C MP, ANEU, CBC, ADIFF, GFR #### [address] [address] .GFRon 11-01-2023 GFR Non- >60 Normal [facility]ly [facility], [facility] ([place] Comment on above: Result Comment: GFR Population [...] C MP, ANEU, CBC, ADIFF, GFR #### [address] [address] GFR >60 Normal [facility] [place] Comment on above: Result Comment: GFR Population [...] C MP, ANEU, CBC, ADIFF, GFR #### [address] [address] .NEUABSon 11-01-2023 Neutrophil, Absolute 15.0 10 3/mcL High 2.3-8.1 A [facility] ([place] Comment on above: Performed By: #### C MP, ANEU, CBC, ADIFF, GFR #### [address] [address] CBCon 11-01-2023 Erythrocyte distribution width (RBC) [Ratio] 14.9 % Normal 11.5-15.5 [facility]ly [facility], [facility] ([place] Comment on above: Performed By: #### C MP, ANEU, CBC, ADIFF, GFR #### [place] [address] Hematocrit (Bld) [Volume fraction] 42.4 % Normal 40.0-52.0 [facility]ly [facility], [facility] ([place] Comment on above: Performed By: #### C MP, ANEU, CBC, ADIFF, GFR #### [place] [id number] Hgb 13.8 G/dL Normal 13.0-17.5 [facility]ly [facility], [facility] ([place] Comment on above: Performed By: #### C MP, ANEU, CBC, ADIFF, GFR #### [place] [address] MCH (RBC) [Entitic mass] 30.3 pg Normal 27.0-33.0 [facility], [facility] ([place] Comment on above: Performed By: #### C MP, ANEU, CBC, ADIFF, GFR #### [place] [address] MCHC 32.6 G/dL Normal 32.0-36.0 [facility], [facility] ([place] Comment on above: Performed By: #### C MP, ANEU, CBC, ADIFF, GFR #### [place] [address] MCV (RBC) [Entitic vol] 93.0 fL Normal 81.0-100.0 A [facility] ([place] Comment on above: Performed By: #### C MP, ANEU, CBC, ADIFF, GFR #### [place] [address] Platelet 336 10 3/mcL Normal 150-450 [facility] ([place] Comment on above: Performed By: #### C MP, ANEU, CBC, ADIFF, GFR #### [place] [address] Platelet mean volume (Bld) [Entitic vol] 10.0 fL Normal 6.4-10.5 [facility] ([place] Comment on above: Performed By: #### C MP, ANEU, CBC, ADIFF, GFR #### [place] [address] RBC 4.56 10 6/mcL Normal 4.50-6.00 [facility] [place] Comment on above: Performed By: #### C MP, ANEU, CBC, ADIFF, GFR #### [place] [address] WBC 18.1 10 3/mcL High 4.5-10.8 [facility] [place] Comment on above: Performed By: #### C MP, ANEU, CBC, ADIFF, GFR #### [address] [address] CMPon 11-01-2023 Albumin Level 3.7 G/dL Normal 3.2-4.8 [facility] [place] Comment on above: Performed By: #### C MP, ANEU, CBC, ADIFF, GFR #### [place] [address] Albumin/Globulin [Mass ratio] 1.0 {ratio} Normal 0.9-1.6 [facility], [facility] ([place] Comment on above: Performed By: #### C MP, ANEU, CBC, ADIFF, GFR #### [address] [address] ALP [Catalytic activity/Vol] 121 U/L Normal 38-126 [facility], [facility] ([place] Comment on above: Performed By: #### C MP, ANEU, CBC, ADIFF, GFR #### [address] [address] ALT [Catalytic activity/Vol] 122 U/L High 12-55 [facility], [facility] ([place] Comment on above: Performed By: #### C MP, ANEU, CBC, ADIFF, GFR #### [address] [address] AST [Catalytic activity/Vol] 72 U/L High 8-34 [facility], [facility] ([place] Comment on above: Performed By: #### C MP, ANEU, CBC, ADIFF, GFR #### [place] [id number] Bili Total 0.70 mg/dL Normal 0.20-1.20 [facility], [facility] ([place] Comment on above: Result Comment: Use of this assay is not recommended for patients undergoing treatment with eltrombopag due to the potential for falsely elevated results. Performed By: #### C MP, ANEU, CBC, ADIFF, GFR #### [place] [address] BUN/Creatinine Ratio 14.3 ratio Normal 10.0-22.0 [facility] [place] Comment on above: Performed By: #### C MP, ANEU, CBC, ADIFF, GFR #### [place] [address] Calcium [Mass/Vol] 9.2 mg/dL Normal 8.7-10.4 [facility] ([place] Comment on above: Performed By: #### C MP, ANEU, CBC, ADIFF, GFR #### [place] [address] Chloride [Moles/Vol] 98 mmol/L Normal 98-110 [facility] [place] Comment on above: Performed By: #### C MP, ANEU, CBC, ADIFF, GFR #### [place] [id number] CO2 [Moles/Vol] 30 mmol/L Normal 22-32 [facility] ([place] Comment on above: Performed By: #### C MP, ANEU, CBC, ADIFF, GFR #### [address] [address] Creatinine [Mass/Vol] 0.84 mg/dL Normal 0.60-1.40 [facility] ([place] Comment on above: Performed By: #### C MP, ANEU, CBC, ADIFF, GFR #### [address] [address] Electrolyte Balance 7.0 mEq/L Normal 4.0-15.0 [facility] ([place] Comment on above: Performed By: #### C MP, ANEU, CBC, ADIFF, GFR #### [address] [address] Globulin 3.7 G/dL Normal 1.5-3.8 [facility], [facility] ([place] Comment on above: Performed By: #### C MP, ANEU, CBC, ADIFF, GFR #### [address] [address] Glucose [Mass/Vol] 101 mg/dL Normal 70-110 [facility] ([place] Comment on above: Performed By: #### C MP, ANEU, CBC, ADIFF, GFR #### [address] [address] Potassium [Moles/Vol] 3.3 mmol/L Low 3.5-5.0 [facility] ([place] Comment on above: Performed By: #### C MP, ANEU, CBC, ADIFF, GFR #### [address] [address] Sodium [Moles/Vol] 135 mmol/L Low 136-145 [facility] ([place] Comment on above: Performed By: #### C MP, ANEU, CBC, ADIFF, GFR #### [address] [address] Total Protein 7.4 G/dL Normal 5.7-8.2 [facility] [place] Comment on above: Result Comment: No te - New Reference Range in effect 20 Performed By: #### C MP, ANEU, CBC, ADIFF, GFR #### [address] [address] Urea nitrogen [Mass/Vol] 12.0 mg/dL Normal 8.0-22.0 [facility], [facility] ([place] Comment on above: Performed By: #### C MP, ANEU, CBC, ADIFF, GFR #### [address] [address] Laboratory - Chemistry and C hemistry - challengeon 10-31-2023 Albumin BCP dye [Mass/Vol] 3.7 g/dL Normal 3.2 - 4.8 g/dL [facility]; [facility] Albumin/Globulin [Mass ratio] 1.0 {ratio} Normal 0.9 - 1.6 {ratio} [facility]; [facility] ALP [Catalytic activity/Vol] 121 U/L Normal 38 - 126 U/L [facility] ALT No additional P-5'-P [Catalytic activity/Vol] 122 U/L Abnormal 12 - 55 U/L [facility]; [facility]. AST [Catalytic activity/Vol] 72 U/L Abnormal 8 - 34 U/L [facility]; [facility], [facility]. Bilirubin [Mass/Vol] 0.70 mg/dL Normal 0.20 - 1.20 mg/dL [facility]; [facility] Calcium [Mass/Vol] 9.2 mg/dL Normal 8.7 - 10. 4 mg/dL [facility]; [facility], [facility]. Chloride [Moles/Vol] 98 mmol/L Normal 98 - 11 0 meq/L [facility]; [facility], [facility]. CO2 [Moles/Vol] 30 mmol/L Normal 22 - 32 meq/L [facility]; [facility], [facility] Creatinine [Mass/Vol] 0.84 mg/dL Normal 0.60 - 1.40 mg/dL [facility], [facility]. Globulin (S) [Mass/Vol] 3.7 g/dL Normal 1.5 - 3.8 g/dL [facility]; [facility], [facility] Glucose [Mass/Vol] 101 mg/dL Normal 70 - 110 mg/dL [facility]; [facility], [facility] Potassium [Moles/Vol] 3.3 mmol/L Abnormal 3.5 - 5.0 meq/L [facility]; [facility] Protein [Mass/Vol] 7.4 g/dL Normal 5.7 - 8.2 g/dL [facility]; [facility] Sodium [Moles/Vol] 135 mmol/L Abnormal 136 - 145 meq/L [facility]; [facility] Urea nitrogen [Mass/Vol] 12.0 mg/dL Normal 8.0 - 22.0 mg/dL [facility]; [facility] Urea nitrogen/Creatinine [Mass ratio] 14.3 {ratio} Normal 10.0 - 22.0 {ratio} [facility]; [facility] Laboratory - Hematology and Cell countson 10-31-2023 Erythrocyte distribution width (RBC) [Ratio] 14.9 % Normal 11.5 - 15.5 % [facility]; [facility] Hematocrit (Bld) [Volume fraction] 42.4 % Normal 40.0 - 52.0 % [facility]; [facility] Hemoglobin (Bld) [Mass/Vol] 13.8 g/dL Normal 13.0 - 17.5 g/dL [facility]; [facility] MCH (RBC) [Entitic mass] 30.3 pg Normal 27.0 - 33.0 pg [facility]; [facility] MCHC (RBC) [Mass/Vol] 32.6 g/dL Normal 32.0 - 36.0 g/dL [facility]; [facility] MCV (RBC) [Entitic vol] 93.0 fL Normal 81.0 - 100.0 fL [facility]; [facility] Platelet mean volume (Bld) [Entitic vol] 10.0 fL Normal 6.4 - 10.5 fL [facility]; [facility], [facility] Platelets (Bld) [#/Vol] 336 {10^3/mcL} Normal 15 0 - 450 {10^3/mcL} [facility], [facility] RBC (Bld) [#/Vol] 4.56 {10^6/mcL} Normal 4.50 - 6.00 {10^6/mcL} [facility], [facility] WBC (Bld) [#/Vol] 18.1 {10^3/mcL} Abnormal 4.5 - 1 0.8 {10^3/mcL} [facility], [facility]. No Panel Informationon 10-31 Electrolyte Balance 7.0 meq/L Normal 4.0 - 15 .0 meq/L [facility] Vital Signs Date Time Vital Sign Value Performing Clinician Faci lity 01-06-2024 08:20-0500 Body temperature 98 [degF] Dr. Humberto Dsouza Work Phone: [facility] 01-06-2024 08:20-0500 Diastolic blood pressure 85 mm[Hg] Dr. Humberto Dsouza Work Phone: [facility] 01-06-2024 08:20-0500 Heart rate 87 /min Dr. Humberto Dsouza Work Phone: [facility] 01-06-2024 08:20-0500 Respiratory rate 16 /min Dr. Humberto Dsouza Work Phone: [facility] 01-06-2024 08:20-0500 SaO2% (BldA) [Mass fraction] 99 % Dr. Humberto Dsouza Work Phone: [facility] 01-06-2024 08:20-0500 Systolic blood pressure 121 mm[Hg] Dr. Humberto Dsouza Work Phone: [facility] 01-06-2024 07:04-0500 Body height 177.[address] Humberto Dsouza Work Phone: [facility] 01-06-2024 07:04-0500 Body mass index (BMI) [Ratio] 29.3 kg/m2 Dr. Humberto Dsouza Work Phone: [facility] 01-06-2024 07:04-0500 Body weight 92.[address] Humberto Dsouza Work Phone: [facility] 11-05-2023 16:00-0500 Body temperature 98.2 [degF] Dr. Humberto Dsouza Work Phone: [facility] 11-05-2023 16:00-0500 Diastolic blood pressure 87 mm[Hg] Dr. Humberto Dsouza Work Phone: [facility] 11-05-2023 16:00-0500 Heart rate 71 /min Dr. Humberto Dsouza Work Phone: [facility] 11-05-2023 16:00-0500 Respiratory rate 16 /min Dr. Humberto Dsouza Work Phone: [facility] 11-05-2023 16:00-0500 SaO2% (BldA) [Mass fraction] 95 % Dr. Humberto Dsouza Work Phone: [facility] 11-05-2023 16:00-0500 Systolic blood pressure 127 mm[Hg] Dr. Humberto Dsouza Work Phone: [facility] 11-05-2023 14:45-0500 SaO2% (BldA) [Mass fraction] 96 % Dr. Humberto Dsouza Work Phone: [facility] 11-05-2023 06:44-0500 Body temperature 97.8 [degF] Dr. Humberto Dsouza Work Phone: [facility] 11-05-2023 06:44-0500 Diastolic blood pressure 99 mm[Hg] Dr. Humberto Dsouza Work Phone: [facility] 11-05-2023 06:44-0500 Heart rate 73 /min Dr. Humberto Dsouza Work Phone: [facility] 11-05-2023 06:44-0500 Respiratory rate 18 /min Dr. Humberto Dsouza Work Phone: [facility] 11-05-2023 06:44-0500 Systolic blood pressure 146 mm[Hg] Dr. Humberto Dsouza Work Phone: [facility] 11-04-2023 12:10-0500 Inhaled oxygen flow rate 2 L/min Dr. Humberto Dsouza Work Phone: [facility] 11-03-2023 10:18-0500 Body height [address] Humberto Dsouza Work Phone: [facility] 11-03-2023 10:18-0500 Body weight 97.[address] Humberto Dsouza Work Phone: [facility] 11-02-2023 21:04-0500 Body mass index (BMI) [Ratio] 30.8 kg/m2 Dr. Humberto Dsouza Work Phone: [facility] 11-02-2023 18:00-0500 Body temperature 97.8 [degF] Dr. Humberto Dsouza Work Phone: [facility] 11-02-2023 18:00-0500 Diastolic blood pressure 64 mm[Hg] Dr. Humberto Dsouza Work Phone: [facility] 11-02-2023 18:00-0500 Heart rate 67 /min Dr. Humberto Dsouza Work Phone: [facility] 11-02-2023 18:00-0500 Respiratory rate 14 /min Dr. Humberto Dsouza Work Phone: [facility] 11-02-2023 18:00-0500 SaO2% (BldA) [Mass fraction] 99 % Dr. Humberto Dsouza Work Phone: [facility] 11-02-2023 18:00-0500 Systolic blood pressure 123 mm[Hg] Dr. Humberto Dsouza Work Phone: [facility] 11-02-2023 15:27-0500 Body height 177.[address] Humberto Dsouza Work Phone: [facility] 11-02-2023 15:27-0500 Body mass index (BMI) [Ratio] 30.9 kg/m2 Dr. Humberto Dsouza Work Phone: [facility] 11-02-2023 15:27-0500 Body weight 97.[address] Humberto Dsouza Work Phone: [facility] 10-31-2023 14:45-0500 Body height 179.07 cm Liana Ceron RN [facility] 10-31-2023 14:45-0500 Body mass index (BMI) [Ratio] 32.11 kg/m2 Liana Ceron RN [facility] [employer] [facility] 10-31-2023 14:45-0500 Body surface area Derived from formula 2.21 m2 Liana Ceron RN [facility] [employer] [facility] 10-31-2023 14:45-0500 Body temperature 98.5 [degF] Liana Ceron RN [facility] [employer] [facility] Comment on above: Method: Oral 10-31-2023 14:45-0500 Body weight 102.97 kg Liana Ceron RN [facility] [employer] [facility] 10-31-2023 14:45-0500 Diastolic blood pressure 98 mm[Hg] Liana Ceron RN [facility] [employer] [facility] [employer] Comment on above: Patient Position: Sitting; Cuff Location : Left Arm; Cuff Size: Standard 10-31-2023 14:45-0500 Heart rate 101 /min Liana Ceron RN [facility] Comment on above: Pattern: Regular 10-31-2023 14:45-0500 Inhaled oxygen concentration 21 % Liana Ceron RN [facility] Comment on above: Room air 10-31-2023 14:45-0500 SaO2% (BldA) [Mass fraction] 97 % Liana Ceron RN [facility] 10-31-2023 14:45-0500 Systolic blood pressure 142 mm[Hg] Liana Ceron RN [facility] Comment on above: Patient Position: Sitting; Cuff Location : Left Arm; Cuff Size: Standard 10-08-2021 15:43-0500 Body height 179.07 cm Bri Bucio RN [facility] 10-08-2021 15:43-0500 Body mass index (BMI) [Ratio] 31.12 kg/m2 Bri Bucio RN [facility] 10-08-2021 15:43-0500 Body surface area Derived from formula 2.19 m2 Bri Bucio RN [facility] 10-08-2021 15:43-0500 Body weight 99.79 kg Bri Bucio RN [facility] 10-08-2021 15:43-0500 Diastolic blood pressure 96 mm[Hg] Bri Bucio RN [facility] Comment on above: Patient Position: Sitting; Cuff Location : Left Arm; Cuff Size: Large 10-08-2021 15:43-0500 Heart rate 89 /min Bri Bucio RN [facility] [employer] [facility] Comment on above: Pattern: Regular 10-08-2021 15:43-0500 Systolic blood pressure 144 mm[Hg] Bri Bucio RN [facility] [employer] [facility] Comment on above: Patient Position: Sitting; Cuff Location : Left Arm; Cuff Size: Large 09-09-2017 16:06-0400 Body height 179.07 cm Bri Bucio RN [facility] [employer] [facility] 09-09-2017 16:06-0400 Body mass index (BMI) [Ratio] 28.8 kg/m2 Bri Bucio RN [facility] [employer] [facility] [employer] [facility] 09-09-2017 16:06-0400 Body surface area Derived from formula 2.11 m2 Bri Bucio RN [facility] 09-09-2017 16:06-0400 Body weight 92.35 kg Bri Bucio RN [facility] 09-09-2017 16:06-0400 Diastolic blood pressure 77 mm[Hg] Bri Bucio RN [facility] [employer] [facility] Comment on above: Patient Position: Sitting; Cuff Location : Left Arm; Cuff Size: Large 09-09-2017 16:06-0400 Heart rate 94 /min Bri Bucio RN [facility] [employer] [facility] Comment on above: Pattern: Regular 09-09-2017 16:06-0400 Systolic blood pressure 128 mm[Hg] Bri Bucio RN [facility] [employer] [facility] Comment on above: Patient Position: Sitting; Cuff Location : Left Arm; Cuff Size: Large 09-02-2017 13:23-0400 Body height 178.44 cm Madonna Horner [facility] [employer] [facility] [employer] [facility] 09-02-2017 13:23-0400 Body mass index (BMI) [Ratio] 29.06 kg/m2 Madonna Evens Maldonado [facility] [employer] [facility] 09-02-2017 13:23-0400 Body surface area Derived from formula 2.11 m2 Madonna Maldonado [facility] [employer] [facility] 09-02-2017 13:23-0400 Body weight 92.53 kg Madonna Wilcox [facility] 09-02-2017 13:23-0400 Diastolic blood pressure 81 mm[Hg] Madonna Wilcox [place] [facility] [employer] [facility] Comment on above: Patient Position: Sitting; Cuff Location : Left Arm; Cuff Size: Standard 09-02-2017 13:23-0400 Heart rate 92 /min Madonna Maldonado [facility] [employer] [facility] Comment on above: Pattern: Regular 09-02-2017 13:23-0400 Systolic blood pressure 147 mm[Hg] Madonna Horner [facility] [employer] [facility] Comment on above: Patient Position: Sitting; Cuff Location : Left Arm; Cuff Size: Standard 03-19-2014 16:05-0400 Body height 179.07 cm Bri Bucio RN [facility] [employer] [facility] 03-19-2014 16:05-0400 Body mass index (BMI) [Ratio] 32.18 kg/m2 Bri Bucio RN [facility] [employer] 03-19-2014 16:05-0400 Body surface area Derived from formula 2.22 m2 Bri Bucio RN [facility].; [employer] [facility] 03-19-2014 16:05-0400 Body weight 103.19 kg Bri Bucio RN [facility].; [facility] 03-19-2014 16:05-0400 Diastolic blood pressure 88 mm[Hg] Bri Bucio RN [facility].; [employer] [facility] [facility] Comment on above: Patient Position: Sitting; Cuff Location : Left Arm; Cuff Size: Large 03-19-2014 16:05-0400 Heart rate 99 /min Bri Bucio RN [employer] [facility]. Comment on above: Pattern: Regular 03-19-2014 16:05-0400 Systolic blood pressure 132 mm[Hg] Bri Bucio RN [facility] [employer].; [employer] [facility], [employer]. Comment on above: Patient Position: Sitting; Cuff Location : Left Arm; Cuff Size: Large 02-26-2014 13:56-0400 Body height 179.07 cm PHILLIP WorldWingerP-C Work Phone: [facility] [employer] [facility]. 02-26-2014 13:56-0400 Body mass index (BMI) [Ratio] 32.11 kg/m2 [place] [employer] Work Phone: [employer] [facility] [employer]. 02-26-2014 13:56-0400 Body surface area Derived from formula 2.21 m2 [place] [employer] Work Phone: [employer] [facility] [employer]. 02-26-2014 13:56-0400 Body weight 102.97 kg PHILLIP WorldWingerP-C Work Phone: [employer] [facility] [employer]. 02-26-2014 13:56-0400 Diastolic blood pressure 96 mm[Hg] [employer] Knowledge RENTAL CLERK-C Work Phone: [employer] [facility] [employer]. Comment on above: Patient Position: Sitting; Cuff Location : Left Arm; Cuff Size: Large 02-26-2014 13:56-0400 Heart rate 103 /min PHILLIP NosopharmER RENTAL CLERK-C Work Phone: [employer] [facility] [employer]. Comment on above: Pattern: Regular 02-26-2014 13:56-0400 Systolic blood pressure 160 mm[Hg] PHILLIP REAER RENTAL CLERK-C Work Phone: [facility] IllTomo Cl[facility]; [employer] [facility] Ill[facility]. Comment on above: Patient Position: Sitting; Cuff Location : Left Arm; Cuff Size: Large 06-12-2012 15:02-0400 Body height 179.07 cm PHILLIP CISSE RENTAL CLERK-C Work Phone: [facility] Ill[facility].; [employer] [facility]. 06-12-2012 15:02-0400 Body mass index (BMI) [Ratio] 30.41 kg/m2 PHILLIP CISSE RENTAL CLERK-C Work Phone: [facility] Ill[facility].; [employer] [facility]. 06-12-2012 15:02-0400 Body surface area Derived from formula 2.16 m2 PHILLIP GARCIAEchoing GreenERIKA RENTAL CLERK-C Work Phone: [facility] IllTomo Clases; [employer] [facility]. 06-12-2012 15:02-0400 Body temperature 98.7 [degF] PHILLIP REAER RENTAL CLERK-C Work Phone: [facility] IllTomo Clases; [employer] [facility] Ill[facility]. Comment on above: Method: Oral 06-12-2012 15:02-0400 Body weight 97.52 kg PHILLIP REAER RENTAL CLERK-C Work Phone: [facility] IllTom[facility] Clases; [employer] [facility] Ill[facility]. 06-12-2012 15:02-0400 Diastolic blood pressure 91 mm[Hg] PHILLIP REAER RENTAL CLERK-C Work Phone: [facility] IllTomo Clases; [employer] [facility] [employer]. Comment on above: Patient Position: Sitting; Cuff Location : Left Arm; Cuff Size: Standard 06-12-2012 15:02-0400 Heart rate 88 /min PHILLIP GARCIATTER RENTAL CLERK-C Work Phone: [facility].; [facility]. Comment on above: Pattern: Regular 06-12-2012 15:02-0400 Systolic blood pressure 144 mm[Hg] PHILLIP CISSE RENTAL CLERK-C Work Phone: [facility].; [facility]. Comment on above: Patient Position: Sitting; Cuff Location : Left Arm; Cuff Size: Standard Encounters Encounter Date Encounter Type Care Provider Facility Start: 02-20-2025 Emergency department [facility] Start: 01-06-2024 End: 01-06-2024 ambulatory Humberto Dsouza Facility:[facility] Start: 01-06-2024 Non-patient / Non-visit Dr. Kelly Dsouza Work Phone: [facility] Start: 01-06-2024 End: 01-06-2024 Admission to same day surgery center Dr. Humberto Dsouza Work Phone: [facility] Work Phone: Start: 01-06-2024 End: 01-06-[address] Humberto Dsouza Work Phone: [facility] Work Phone: Start: 11-15-2023 End: 11-15-2023 ambulatory Humberto Dsouza Facility:[facility] Start: 11-15-2023 End: 11-15-[address] Humberto Dsouza Work Phone: [facility] Work Phone: Start: 11-10-2023 End: 11-10-2023 ambulatory Humberto Dsouza Facility:[facility] Start: 11-10-2023 End: 11-10-[address] Humberto Dsouza Work Phone: [facility] Work Phone: Start: 11-05-2023 Non-patient / Non-visit Dr. Kelly Dsouza [facility] Phone[facility] Start: 11-04-2023 Non-patient / Non-visit Dr. Kelly Dsouza Work Phone: [facility] Start: 11-03-2023 Non-patient / Non-visit Dr. Kelly Dsouza Work Phone: [facility] Start: 11-02-2023 End: 11-05-2023 Evaluation and management of inpatient Nehemias Beauchamp Facility:[facility] Start: 11-02-2023 ambulatory Nehemias Beauchamp Facility: [facility] Start: 11-02-2023 End: 11-05-2023 Evaluation and management of inpatient Dr. Humberto Dsouza Work Phone: [facility] Work Phone: Start: 11-02-2023 Non-patient / Non-visit Dr. Kelly Dsouza Work Phone: [facility] Start: 11-02-2023 End: 11-02-2023 Results Review PHILLIP CISSE RENTAL CLERK-C Work Phone: [facility] Start: 10-31-2023 End: 11-05-[address] HUMBERTO DSOUZA MD Facility:[facility] Start: 10-31-2023 End: 10-31-2023 Office outpatient visit 15 minutes PHILLIP CISSE RENTAL CLERK-C Work Phone: [facility] IllTomo Clases Start: 10-08-2021 End: 10-08-2021 Office outpatient visit 15 minutes PHILLIP CISSE RENTAL CLERK-C Work Phone: [facility] IllRet[facility]. Start: 12-08-2018 End: 12-08-2018 Patient encounter procedure BOB OSULLIVAN [facility] Start: 11-06-2018 Encounter for other preprocedural examination [facility] Start: 11-06-2018 End: 11-06-2018 Patient encounter procedure RATNAAMI LIRIANO [facility] Start: 09-09-2017 End: 09-09-2017 Office outpatient visit 10 minutes PHILLIP CISSE RENTAL CLERK-C Work Phone: [facility] Start: 09-02-2017 End: 09-02-2017 Office outpatient visit 25 minutes PHILLIP CISSE RENTAL CLERK-C Work Phone: [facility]. Start: 04-02-2014 End: 04-02-2014 Follow-up encounter PHILLIP CISSE RENTAL CLERK-C Work Phone: [facility] Start: 04-01-2014 End: 04-01-2014 Lab Only PHILLIP CISSE RENTAL CLERK-C Work Phone: [facility]. Start: 03-19-2014 End: 03-19-2014 Medication Refill/Order PHILLIP CISSE RENTAL CLERK-C Work Phone: [facility]. Start: 03-19-2014 End: 03-19-2014 Patient encounter procedure PHILLIP CISSE RENTAL CLERK-C Work Phone: [facility]. Start: 02-26-2014 End: 02-26-2014 Patient encounter procedure PHILLIP CISSE RENTAL CLERK-C Work Phone: [facility]. Start: 06-12-2012 End: 06-12-2012 Patient encounter procedure PHILLIP CISSE RENTAL CLERK-C Work Phone: [facility] Encounter for other preprocedural examination [facility] Procedures Date Procedure Procedure Detail Performing [...] Start: 10-08-2021 End: 10-08-2021 Removal skn tags vertica architect fibrq tags any area upw/ HUMBERTO DSOUZA MD Work Phone: Start: 09-02-2017 End: 09-02-2017 Incision & drainage abscess simple/single J EMORY MALDONADO MD Work Phone: [facility] Adacel[facility]ost[facility] Theresa Ceron RN Comment on above: Discussed. Plan of Treatment Date Care Activity Detail Author Start: 01-06-2024 Patient discharge [facility] Start: 11-05-2023 Patient discharge [facility] Start: 11-04-2023 Anaerobic Culture Anaerobic Culture [facility] Start: 11-04-2023 Microbial culture, routine Wound Culture [facility] Start: 11-04-2023 Oxygen therapy [facility] Start: 11-04-2023 Vital signs measurements [facility] Start: 11-04-2023 Abdomen/Pelvis WITH Contrast Abdomen/Pelvis WITH Contrast [facility] Start: 11-04-2023 CT Abdomen and Pelvis W contrast IV [facility] Start: 11-03-2023 Blood chemistry [facility] Start: 11-03-2023 [facility] Start: 11-02-2023 Following clinical pathway protocol [facility] Start: 11-02-2023 Admission procedure [facility] Start: 11-02-2023 Hospital admission, emergency, from emergency room, medical nature [facility] Start: 10-31-2023 Ct abdomen & pelvis w/contrast material CT ABDOMEN AND PELVIS WITH IV AND ORAL CONTRAST (06503) Start: 31-Oct-2023 Intent [facility]; [facility]. Start: 05-16-2014 Assay of thyroid stimulating hormone tsh TSH (THYROID STIMULATING HORMONE) (41677) Start: 16-May-2014 21:10 Request [facility].; [facility]. Start: 02-26-2014 Patient Education Dietary Approaches to Stop Hypertension (The DASH Diet): blood pressure Indication: Hypertension Start: 26-Feb-2014 Instruction Type: Patient Education [facility].; [facility]. Anion gap measurement [facility] Bacteria identified in Unspecified specimen by Anaerobe culture [facility] BUN/Creatinine ratio [facility] Calcium [Mass/volume ] in Serum or Plasma [facility] Carbon dioxide, tota l [Moles/volume] in Serum or Plasma [facility] Chloride [Moles/volu me] in Serum or Plasma [facility] Colonoscopy [facility] Creatinine [Moles/vo lume] in Serum or Plasma [facility] Glucose [Mass/volume ] in Serum or Plasma [facility] Hematocrit [Volume Fraction] of Blood [facility] Hemoglobin [Mass/vol ume] in Blood [facility] Leukocytes [#/volume ] in Blood [facility] Magnesium [Mass/volu me] in Serum or Plasma [facility] Mean corpuscular hemoglobin concentration determination [facility] Mean corpuscular hemoglobin determination [facility] Measurement of renal function [facility] Neutrophil count [facility] Neutrophil percent differential count [facility] Patient Education Jan King Drain Tube Dc Post Op Drain Emptying Steps [facility] Work Phone: Patient referral [facility] Work Phone: Platelets [#/volume] in Blood [facility] Potassium [Moles/vol ume] in Serum or Plasma [facility] Red blood cell count [facility] Red cell distributio n width determination [facility] Sodium [Moles/volume ] in Serum or Plasma [facility] Urea nitrogen [Mass/volume] in Serum or Plasma [facility] Immunizations Immunization Date Immunization Notes Care Provider Tanvir james 04-21-2020 Covid (Moderna) Dr. Humberto Dsouza Work Phone: [facility] 03-21-2020 Covid (Moderna) Dr. Humberto Dsouza Work Phone: [facility] influenza virus vaccine, unspecified formulation PHILLIP CISSE RENTAL CLERK-C Work Phone: [facility]. Comment on above: Refused. 10/31/2023 Payers Date Payer Category Payer Self-pay 2023 Unknown [id number] 2017 Unknown [id number] 1980 Unknown [id number] 2.16.8 [id number] 1979 Unknown [id number] 2.16.8 [id number] 1979 Unknown [id number] 2.16.8 [id number] 1979 Unknown [id number] 2.16.8 [id number] Unknown [facility] [id number] Unknown [facility] Unknown [id number] 2.16.8 [id number] Unknown [id number] 2.16.8 [id number] Unknown [id number] 2.16.8 [id number] Unknown [id number] 2.16.8 [id number] Unknown [id number] 2.16.8 [id number] Unknown [id number] 2.16.8 [id number] Unknown [id number] 2.16.8 [id number] Unknown [id number] 2.16.8 [id number] Unknown [id number] 2.16.8 [id number] Social History Date Type Detail Facility Start: 11-02-2023 End: 11-03-2023 Tobacco smoking status IDIS Unknown if ever smoked [facility] Start: 1980 Sex Assigned At Male W [facility] Alcohol Use: Alcohol Use: ; Y es for Alcohol Use. 1 to 7 drinks per week. [facility]; [facility] Current Work/Study Status Current Work/Study Status [facility]; [facility] Tobacco use: Tobacco use: ; C urrent some day smoker. [facility]; [facility] Occasional tobac co smoker [facility]Doc[facility] HospitalEccentex [facility]; [facility]. Work Phone: [facility].; [facility]. Work Phone: Goals Date Patient Goal Desired Activity /State Functional Status Date Assessment Result Facility 11-05-2023 Functional status Bathroom Privilege [facility] Work Phone: 11-03-2023 Functional status Tolerates Activity Well [facility] Work Phone: Mental Status Date Assessment Result Facility 01-06-2024 Cognitive function Voice/Name [facility] Work Phone: 01-06-2024 Cognitive function Patient Orien tation Person;Place;Time [facility] Work Phone: 11-04-2023 Cognitive function Voice/Name [facility] Work Phone: Clinical Notes 11-02-2023 to 01-06-2024 Note Date & Type Note Facility 01-06-2024 Note [facility] Medical Records Department [address] [place] [address] History Physical Exam 01/06/24 0728 MR#: [id number] Acct: [id number] Name: JOE CLARK Rep #: [id number] : 1980 43 From: Nehemias Beauchamp MD PCP: Dr. Humberto Dsouza MD Status:[facility] Location: [place] [address] History and Physical Date of Admission: 01/06/24 OFFICE VISIT Date of Service: 11/15/23 MR#: [id number] Acct: [id number] Name: JOE CLARK Rep #: [id number] : 1980 Provider: Dr. Nehemias Beauchamp MD Age/Sex: 43/M Location: [facility] Status: Signed Intake Vital Signs 11/03/2310:18 Height [...] that his bowels been regular and unremarkable. [facility] Musculoskeletal: Yes arthritis Gastro Gastrointestinal: Yes abdominal [...] 0729 Cosigner Sig (more content not included)... [facility] 01-06-2024 Procedure note [facility] 01-06-2024 Procedure note [facility] 11-05-2023 Note [facility] Medical Records Department [address] [place] [address] Discharge Summary 11/05/23 1508 MR#: [id number] Acct: [id number] Name: JOE CLARK Rep #: [id number] : 1980 42 From: Alcides Diaz MD PCP: Dr. Humberto Dsouza MD Status:ADM IN [id number] Providers Date of Admission: 11/02/23 Primary Care [...] in the morning. 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 Humberto Dsouza MD Signed [facility] 11-05-2023 Progress note Note Date/Time November 05, 2023 7:57am [facility] Medical Records Department [address] [place] [address] Progress Note - Surgery 11/05/23 0755 MR#: [id number] Acct: [id number] Name: JOE CLARK Rep #:[id number] : 1980 42 From: Alcides ram MD PCP: Dr. Humberto Dsouza MD Status:ADM I N Location: [place] [address] Subjective Subjective Patient reports no abdominal pain [...] BUN 7, Creatinine 0.74, Estim Creat Clear Vhyh378.90, Est GFR (MDRD) Af Amer 148, Est [...] in the morning. Alcides Diaz MD Pager: [facility] [address] [facility], [address] [place] [address] Office: 11/05/23 0757 <Electronically signed by Alcides Diaz MD> Cosigner Signature (if applicable): CC: ~ Signed [facility] Work Phone: 1(254) 172-991612-15-2023 Progress note Author Nehemias Beauchamp [facility] November 04, 2023 10:00am Note Date/Time November 04, 2023 8:24am [facility] Medical Records Department [address] [place] [address] Progress Note - Surgery 11/04/23823 MR#: [id number] Acct: [id number] Name: JOE CLARK Rep #:[id number] : 1980 42 From: Nehemias Brandt PCP: Dr. Humberto Dsouza MD Status:ADM I N Location: [place] [address] Subjective Subjective Patient seen and examined during [...] Ensure clears Charges/Coding Visit Charges Inpatient E&M: 57075 Subs Hosp L2 11/04/23 1000 <Electronically signed by Nehemias Beauchamp MD> Cosigner Signature (if applicable): CC: ~ Signed [facility] Work Phone: 1(115) 735-780612-14-2023 Progress note Author Nehemias Beauchamp [facility] November 03, 2023 7:24am Note Date/Time November 03, 2023 7:24am [facility] Medical Records Department [address] [place] [address] Progress Note - Surgery 11/03/23721 MR#: [id number] Acct: [id number] Name: JOE CLARK Rep #:[id number] : 1980 42 From: Nehemias Brandt PCP: Dr. Humberto Dsouza MD Status:ADM I N Location: [place] [address] Subjective Subjective Patient seen and examined during [...] contrast tomorrow Charges/Coding Visit Charges Inpatient E&M: 43858 Subs Hosp L2 11/03/23 0724 <Electronically signed by Nehemias Beauchamp MD> Cosigner Signature (if applicable): CC: ~ Signed [facility] Work Phone: 1(142) 552-977512-13-2023 History and physical note Author Nehemias Beauchamp [facility] November 02, 2023 5:26pm Note Date/Time November 02, 2023 5:16pm [facility] Medical Records Department [address] [place] [address] History & Physical Exam 11/02/231712 MR#: [id number] Acct: [id number] Name: JOE CLARK Rep #:[id number] : 1980 42 From: Nehemias Brandt PCP: Dr. Humberto Dsouza MD Status:REG E R Location: ED HPI - General General Date of Service: 11/02/23 HPI Narrative JOE CLARK, is a 42 M who presents to [facility] after being referred to present for emergency evaluation upon a reading of an outpatient CT scan that was arranged through his primary care provider and performed at [facility]. He shares that he has had [...] cancer. He has never undergone colonoscopy himself. [facility] Medical History no medical history Allergy/AdvReac Type [...] percutaneous drainage. Charges/Coding Visit Charges Inpatient E&M: 66592 Init Hosp L2 11/02/236 <Electronically signed by Nehemias Beauchamp MD> Cosigner Signature (if applicable): CC: Dr. Nehemias Beauchamp MD; Dr. Humberto Dsouza MD~ Signed [facility] Work Phone: 1(966) 815-631512-13-2023 History and physical note Author Nehemias Beauchamp [facility] November 02, 2023 5:26pm Note Date/Time November 02, 2023 5:16pm [facility] Medical Records Department [address] [place] [address] History & Physical Exam 11/02/231712 MR#: [id number] Acct: [id number] Name: JOE CLARK Rep #:[id number] : 1980 42 From: Nehemias Brandt PCP: Dr. Humberto Dsouza MD Status:REG E R Location: ED HPI - General General Date of Service: 11/02/23 HPI Narrative JOE CLARK, is a 42 M who presents to [facility] after being referred to present for emergency evaluation upon a reading of an outpatient CT scan that was arranged through his primary care provider and performed at [facility]. He shares that he has had [...] cancer. He has never undergone colonoscopy himself. [facility] Medical History no medical history Allergy/AdvReac Type [...] percutaneous drainage. Charges/Coding Visit Charges Inpatient E&M: 18828 Init Hosp L2 11/02/23 1726 <Electronically signed by Nehemias Beauchamp MD> Cosigner Signature (if applicable): CC: Dr. Nehemias Beauchamp MD; Dr. Humberto Dsouza MD~ Signed [facility] Work Phone: 1(531) 256-344812-13-2023 [facility] Medical Records Department [address] [place] [address] History Physical Exam 11/02/23 1713 MR#: [id number] Acct: [id number] Name: JOE CLARK Rep #: [id number] : 1980 42 From: Nehemias Beauchamp MD PCP: Dr. Humberto Dsouza MD Status:REG ER Location: ED HPI - General General Date of Service: 11/02/23 HPI Narrative JOE CLARK, is a 42 M who presents to [facility] after being referred to present for emergency evaluation upon a reading of an outpatient CT scan that was arranged through his primary care provider and performed at [facility]. He shares that he has had [...] cancer. He has never undergone colonoscopy himself. [facility] Medical History no medical history Allergy/AdvReac Type [...] CT scan he h (more content not included)...[facility] 11-02-2023 Discharge summary Author Kentrell Solano [facility] November 02, 2023 5:00pm Note Date/Time November 02, 2023 3:45pm [facility] Medical Records Department [address] [place] [address] Emergency Department Summary 11/02/23 MR#: [id number] Acct: [id number] Name: JOE CLARK Rep #:[id number] : 1980 42 From: Kentrell Solano MD [...] 0.7 L Management Discussion w/another healthcare provider: Record Tabulating Clerk (Dr. Beauchamp, general surgery) Discharge Plan Dx/Rx/DC Orders Clinical Impression: Hyponatremia, Leukocytosis, Sigmoid diverticulitis, Colonic diverticular abscess Disposition Disposition: Acute Care Hospital [facility] What to do if you have Problems For any increased pain, shortness of breath, bleeding, nausea or vomiting, chestpain, or any unexpected problems, contact your Primary Care Provider. Call [facility] ([phone]) or report to the closest Emergency Room. Call 911 if necessary. 11/02/23 1700 <Electronically signed by Kentrell Solano MD> Cosigner Signature (if applicable): CC: Dr. Humberto Dsouza MD ~ Signed [facility] Work Phone: Discharge summary Author Alcides Diaz [facility] November 05, 2023 3:12pm Note Date/Time November 05, 2023 3:10pm [facility] Medical Records Department [address] [place] [address] Discharge Summary 11/05/23 1508 MR#: [id number] Acct: [id number] Name: JOE CLARK Rep #:[id number] : 1980 42 From: Alcides ram MD PCP: Dr. Humberto Dosuza MD Status:ADM I N Location: [place] [address]91-1 Providers Date of Admission: 11/02/23 Primary Care [...] in the morning. 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 Humberto Dsouza MD~ Signed [facility] Work Phone: Evaluation note* Diagnosis Onset Date Resolution Status Colonic diverticular abscess acute Hyponatremia acute Leukocytosis acute Sigmoid diverticulitis acute [facility] Work Phone: Evaluation note* Diagnosis Onset Date Resolution Status Colonic diverticular abscess acute Hyponatremia resolved Leukocytosis resolved Sigmoid diverticulitis resol yanna Colonic diverticular abscess acute Colonic diverticular abscess acute [facility] Work Phone: History and physical note Author Nehemias Beauchamp [facility] January 06, 2024 7:29am Note Date/Time January 06, 2024 7:29am [facility] Medical Records Department [address] [place] [address] History & Physical Exam 01/06/24 0728 MR#: [id number] Acct: [id number] Name: JOE CLARK Rep #:[id number] : 1980 43 From: Nehemias Brandt PCP: Dr. Humberto Dsouza MD Status:REG S IN Location: [place] [address] History and Physical Date of Admission: 01/06/24 OFFICE VISIT Date of Service: 11/15/23 MR#: [id number] Acct: [id number] Name: JOE CLARK Rep #: [id number] : 1980 Provider: Dr. Nehemias Beauchamp MD Age/Sex: 43/M Location: [facility] Status: Signed Intake Vital Signs 11/03/2310:18 Height [...] confirms thathis bowels been regular and unremarkable. [facility] Musculoskeletal: Yes arthritis Gastro Gastrointestinal: Yes abdominal [...] Beauchamp MD; Dr. Humberto Dsouza MD~ Signed [facility] Work Phone: Summary Purpose Family History No Family History Records FoundNo Family History Records FoundNo Family History Records FoundNo Family History Records Found Advance Directives No Advanced Directives Records Found Advance Directive Response Recorded Date/ Time Living Will No November 02, 2 023 3:39pm Power of Health Director No November 02, 2023 3:39pm Advance Directive Response Recorded Date/ Time Living Will No December 30 11:55am Power of Health Director No December 30, 2023 11:55am Advance Directive Response Recorded Date/ Time Living Will No November 02, 2 023 9:07pm Power of Health Director No November 02, 2023 9:07pm Chief Complaint [...] section and content) DATE CREATED AUTHOR 12/18/2018 [facility] DATE CREATED AUTHOR AUTHOR'S ORGANIZ ATION 11/12/2023 [facility] ([place]) DATE CREATED AUTHOR AUTHOR'S ORGANIZ ATION 01/17/2024 [facility] DATE CREATED AUTHOR AUTHOR'S ORGANIZ ATION 02/23/2025 [facility] Care Teams (unrecognized sec tion and content) [...] BE BASED ON THE PRIMARY CLINICAL RECORDS. [employer] provides no warranty or guarantee of the accuracy or completeness of information in this document.
[2025-06-23] MEDS: Lactated Ringers 1,000 ML 100 ML IV (19:53)
[2025-06-23 23:13] LABS: Mucous, Urine 0 SEEN /hpf (<or=2+)
[2025-06-23 23:24] LABS: Color, Urine Amber (Yellow); Glucose, Dipstick Normal (Normal); Leukocyte Esterase-Dipstick 25 /ul (Negative); Nitrite-Dipstick Negative (Negative); Occult Blood-Urine 10 /ul (Negative); Protein-Dipstick 100 mg/dl (Negative); Specific Gravity, Urine 1.010 (1.002-1.030)
[2025-06-23 23:26] LABS: Urine Bilirubin Dipstick 1 mg/dL (Negative)
[2025-06-23 23:27] LABS: Ketone-Dipstick 150 mg/dl (Negative)
[2025-06-23 23:35] LABS: Red Blood Cells-Urine 5-10 SEEN /hpf (0-5); Squamous Epithelial Cells - UA 0-5 SEEN /hpf (0-5)
[2025-06-24] MEDS: metroNIDAZOLE 500 MG/100 ML BAG 100 MG IV ×3 (05:41→21:46)
[2025-06-24 06:04] VITALS: BP 150/94; PULSE 101; RESP 19; TEMP 36.9; O2SAT 94
[2025-06-24 07:25] LABS: Hematocrit 41.8 % (40-54); Hemoglobin 15.0 g/dL (13.0-16.5); Mean Corp Hgb Conc 35.9 g/dL (32-36); Mean Corpuscular Volume 87.6 fL (80-94); Mean Platelet Vol. 11.5 fl (6.2-12.0); Platelet Count 237 K/mm3 (150-450); RBC Distribution Width CV 13.8 % (11.6-14.6); RBC Distribution Width SD 44.7 fl (35.1-43.9); Red Blood Count 4.77 M/mm3 (4.6-6.2); White Blood Count 19.9 K/mm3 (4.4-11.0)
[2025-06-24 08:04] LABS: Anion Gap 16 (5-15); BUN 22 mg/dL (4-19); BUN/Creat Ratio 22.8 RATIO (10-20); Calcium,Total 9.6 mg/dL (7.6-11.0); Carbon Dioxide 22.3 mmol/L (21.0-32.0); Chloride 96 mmol/L (98-108); Estimated Creatinine Clearance 111.09 ml/min (50-250); Glucose 120 mg/dL (70-99); Potassium 3.4 mmol/L (3.3-5.1)
--- NOTE | 2025-06-24 08:23 | CON.PCM.SX_ITS ---
Assessment & Plan Assessment/Plan (1) Sigmoid diverticulitis: PLAN: Plan The patient is a 44-year-old male admitted with uncomplicated sigmoid diverticulitis. He had a previous episode of sigmoid diverticulitis with abscess back in 2022. This resolved with percutaneous drainage. He underwent colonoscopy shortly thereafter. It sounds as though surgery was discussed at that time but patient declined. Would recommend continued IV antibiotics and n.p.o. for now. Will likely require oral antibiotics on discharge. Patient can follow-up as an outpatient to again discuss option of surgical resection. Will continue to follow and advise accordingly. HPI Consult Data Date of Consult: 06/24/25 HPI Narrative Reason for Consultation: Recurrent sigmoid diverticulitis HPI Narrative: JOE GARCÍA, is a 44 M who was admitted to [facility] on 06/23/2025 with left lower quadrant abdominal pain. Patient has past medical history of previous sigmoid diverticulitis with abscess back in October 2023. At that time he had a drain placed by interventional radiology. He improved with antibiotics. He had a follow-up colonoscopy a couple months later that showed resolution. Since that time he had another episode of diverticulitis which was treated with antibiotics as an outpatient. He began again having abdominal pain about 3 or 4 days ago. He felt that this was similar to his previous episodes of diverticulitis. Due to persistence of this pain, he presented to the emergency department yesterday afternoon. He was seen and evaluated by the ER staff. Blood work was performed and showed a white blood cell count of 25,000. Creatinine was slightly elevated at 1.3. CT scan was performed showed sigmoid colon inflammation and thickening without abscess or perforation. This was felt to be consistent with diverticulitis of the sigmoid colon. He was subsequently admitted to the medicine service with IV antibiotics. A surgical consult was obtained as well [facility] Medical History Sleep apnea Alcohol use Arthritis History of diverticulitis Former smoker Home Medications ?Medication ?Instructions ?Recorded ?Last Taken ?Type acetaminophen 500 mg tablet 500 mg PO Q4H PRN fever or pain 06/23/25 06/23/25 History Allergy/AdvReac Type Severity Reaction Status Date / Time amoxicillin Allergy Intermediate Hives Verified 06/23/25 15:02 Surgical History Hx of tonsillectomy Hx of left knee surgery History of right hip replacement Social History Smoking Status: Former smoker alcohol intake: current alcohol intake frequency: holidays/special occasions only substance use type: does not use ROS Eyes Eyes: Reports systems reviewed and no addt'l complaints, except as documented ENT HEENT: Reports systems reviewed and no addt'l complaints, except as documented Cardiovascular Cardiovascular: Reports systems reviewed and no addt'l complaints, except as documented Respiratory/Chest Respiratory/Chest: Reports systems reviewed and no addt'l complaints, except as documented Gastrointestinal Gastrointestinal: Reports systems reviewed and no addt'l complaints, except as documented Genitourinary Genitourinary: Reports systems reviewed and no addt'l complaints, except as documented Physical Exam Const alert, oriented x3 and no apparent distress General Appearance: cooperative HEENT normocephalic Eyes PERRL and EOMs intact bilaterally Chest inspection of chest normal Resp normal respiratory effort Effort and Inspection: able to speak in complete sentences GI GI Narrative: Abdomen is soft and nondistended. Patient does have mild to moderate left lower quadrant tenderness to palpation. No rebound or guarding. Medical Records Data Attestation: I reviewed the patient's medical records Lab / Micro Data Attestation: I reviewed the patient's lab results. 06/24/25 06:58 06/24/25 06:58 Labs: Laboratory Results - last 24 hr 06/23/25 15:45: WBC 25.7 H, RBC 4.95, Hgb 15.5, Hct 42.8, MCV 86.5, MCH 31.3, M CHC 36.2 H, RDW Std Deviation 43.2, RDW Coeff of [place]den 13.6, Plt Count 249, MPV 11.3, Immature Gran % (Auto) 0.800, Neut % (Auto) 90.1 H, Lymph % (Auto) 5.1 L, [place] % (Auto) 3.3, Eos % (Auto) 0.4, Baso % (Auto) 0.3, Absolute Neuts (auto) 23.2 H, Absolute Lymphs (auto) 1.31, Nucleated RBC % 0, Differential Comment SCANNED, Platelet Estimate ADEQUATE, Sodium 134, Potassium 3.5, Chloride 96 L, Carbon Dioxide 21.6, Anion Gap 16 H, BUN 28 H, Creatinine 1.34 H, Estim Creat Clear Calc 77.72, Est GFR (MDRD) Non-Af 67, BUN/Creatinine Ratio 21.0 H, Glucose 124 H, Calcium 9.7 06/23/25 16:35: Lactic Acid 1.0 06/23/25 23:05: Urine Color Carol, Urine Clarity Clear, Urine pH 6.5, Ur Specific [place] 1.010, Urine Protein 100 H, Urine Glucose (UA) Normal, Urine Ketones 150 A*, Urine Occult Blood 10 H, Urine Nitrite Negative, Urine Bilirubin 1 H, Urine Urobilinogen 1 H, Ur Leukocyte Esterase 25 H, Urine RBC 5-10 SEEN, Urine WBC 0-5 SEEN, Ur Squamous Epith Cells 0-5 SEEN, Urine Bacteria 0 SEEN, Urine Mucus 0 SEEN 06/24/25 06:58: WBC 19.9 H, RBC 4.77, Hgb 15.0, Hct 41.8, MCV 87.6, MCH 31.4, MCHC 35.9, RDW Std Deviation 44.7 H, RDW Coeff of [place] 13.8, Plt Count 237, MPV 11.5, Sodium 134, Potassium 3.4, Chloride 96 L, Carbon Dioxide 22.3, Anion Gap 16 H, BUN 22 H, Creatinine 0.94, Estim Creat Clear Calc 111.09, Est GFR (MDRD) Non-Af 101, BUN/Creatinine Ratio 22.8 H, Glucose 120 H, Calcium 9.6 Imaging Radiology Impression Abdomen/Pelvis CT 06/23/25 15:35 IMPRESSION: Inflammatory process in the left lower quadrant with bowel wall thickening of the sigmoid colon suggest possibility of recurrent diverticulitis. Trace fluid and fat stranding. No drainable fluid collection. Fluid-filled distended loops of small bowel indicate possible SBO or ileus, please correlate clinically Subtle patchy airspace disease inferior lingula and to lesser extent lung bases, please provide clinical correlation to exclude pneumonia Reading Location: [facility] Charges/Coding Visit Charges Inpatient E&M: 38327 Init Hosp L3
[2025-06-24 09:13] VITALS: BP 134/76; PULSE 112; RESP 18; TEMP 36.8; O2SAT 95
--- NOTE | 2025-06-24 09:51 | CASEMGMT ---
Dx: Recurrent Diverticulitis LACE: 1 6-Clicks: 24 Medical record reviewed and patient evaluated for identification of discharge planning needs. Based on this review, at this time criteria are not present to indicate a need for discharge planning. Will remain available to assist with discharge planning needs as identified or requested.
[2025-06-24] MEDS: 0.9% Normal Saline (250mL Bag) 250 ML 15 ML IV (10:38)
--- NOTE | 2025-06-24 10:53 | PN.HOSP_ITS ---
Reason for Visit Chief Complaint: Abdominal pain Subjective Subjective Saw patient at bedside this morning. Patient appeared similar to yesterday, was somewhat fatigued appearing but otherwise laying back and in no acute distress. He did note that he became nauseous with a few small episodes of vomiting overnight and this morning with liquids. Has had a few small bowel movements with minimal pain with the bowel movements. Denies any fevers or chills. No other acute concerns currently. Objective Data Objective Data Vital Signs: Vital Signs Temp Pulse Resp BP Pulse Ox O2 Del Method 98.2 F 112 H 18 134/76 H 95 Room Air 06/24/25 09:13 06/24/25 09:13 06/24/25 09:13 06/24/25 09:13 06/24/25 09:13 06/24/25 09:15 Oxygen Delivery Method Room Air Weight: 88.36 kg Body Mass Index (BMI) 27.9 Intake & Output: Intake and Output for Last 24 Hours 06/22/25 06/23/25 06/24/25 23:59 23:59 23:59 Intake Total 1400 / 1600 1750 / 1750 Balance 1400 / 1600 1750 / 1750 Lab / Micro Data 06/24/25 06:58 06/24/25 06:58 Labs: Laboratory Results - last 24 hr 06/23/25 15:45: WBC 25.7 H, RBC 4.95, Hgb 15.5, Hct 42.8, MCV 86.5, MCH 31.3, M CHC 36.2 H, RDW Std Deviation 43.2, RDW Coeff of [place] 13.6, Plt Count 249, MPV 11.3, Immature Gran % (Auto) 0.800, Neut % (Auto) 90.1 H, Lymph % (Auto) 5.1 L, [place] % (Auto) 3.3, Eos % (Auto) 0.4, Baso % (Auto) 0.3, Absolute Neuts (auto) 23.2 H, Absolute Lymphs (auto) 1.31, Nucleated RBC % 0, Differential Comment SCANNED, Platelet Estimate ADEQUATE, Sodium 134, Potassium 3.5, Chloride 96 L, Carbon Dioxide 21.6, Anion Gap 16 H, BUN 28 H, Creatinine 1.34 H, Estim Creat Clear Calc 77.72, Est GFR (MDRD) Non-Af 67, BUN/Creatinine Ratio 21.0 H, Glucose 124 H, Calcium 9.7 06/23/25 16:35: Lactic Acid 1.0 06/23/25 23:05: Urine Color Carol, Urine Clarity Clear, Urine pH 6.5, Ur Specific [place] 1.010, Urine Protein 100 H, Urine Glucose (UA) Normal, Urine Ketones 150 A*, Urine Occult Blood 10 H, Urine Nitrite Negative, Urine Bilirubin 1 H, Urine Urobilinogen 1 H, Ur Leukocyte Esterase 25 H, Urine RBC 5-10 SEEN, Urine WBC 0-5 SEEN, Ur Squamous Epith Cells 0-5 SEEN, Urine Bacteria 0 SEEN, Urine Mucus 0 SEEN 06/24/25 06:58: WBC 19.9 H, RBC 4.77, Hgb 15.0, Hct 41.8, MCV 87.6, MCH 31.4, MCHC 35.9, RDW Std Deviation 44.7 H, RDW Coeff of [place] 13.8, Plt Count 237, MPV 11.5, Sodium 134, Potassium 3.4, Chloride 96 L, Carbon Dioxide 22.3, Anion Gap 16 H, BUN 22 H, Creatinine 0.94, Estim Creat Clear Calc 111.09, Est GFR (MDRD) Non-Af 101, BUN/Creatinine Ratio 22.8 H, Glucose 120 H, Calcium 9.6 Radiography Diagnostic Testing: Radiology Impression Abdomen/Pelvis CT 06/23/25 15:35 IMPRESSION: Inflammatory process in the left lower quadrant with bowel wall thickening of the sigmoid colon suggest possibility of recurrent diverticulitis. Trace fluid and fat stranding. No drainable fluid collection. Fluid-filled distended loops of small bowel indicate possible SBO or ileus, please correlate clinically Subtle patchy airspace disease inferior lingula and to lesser extent lung bases, please provide clinical correlation to exclude pneumonia Reading [facility] Physical Exam Const alert, oriented x3, no apparent distress and average body habitus Constitutional Narrative: Pleasant middle-age male, mildly fatigued appearing but otherwise laying back comfortably in bed, conversing normally, in no acute distress. General Appearance: cooperative and comfortable HEENT normocephalic, head/scalp atraumatic, hearing grossly normal bilaterally, nasal mucous membranes and turbinates normal and moist oral mucous membranes Eyes PERRL, EOMs intact bilaterally and conjunctivae normal Neck full ROM Chest inspection of chest normal Resp normal respiratory effort, normal air movement, no use of accessory muscles and clear to auscultation bilaterally Cardio regular rate, regular rhythm, no murmurs and peripheral pulses 2+ throughout GI GI Narrative: Abdomen mildly tender to palpation in the left lower quadrant. Otherwise soft and nondistended. Back/Spine normal ROM Extremity normal to inspection, full ROM and no pedal edema Skin no rashes or lesions noted Psych mental status grossly normal Assessment & Plan Assessment/Plan (1) Sigmoid diverticulitis: (2) Acute kidney injury: PLAN: Plan Patient is a 44-year-old male who presented [facility] ED on 06/23/2025 with abdominal pain. 1. Recurrent sigmoid diverticulitis ? General surgery following. History of sigmoid diverticulitis with abscess back in 10/2023, see HPI for further details. CT abdomen pelvis on this admit shows sigmoid colon inflammation with bowel thickening concerning for recurrent diverticulitis. WBC count 25,000. Per surgery, consistent with uncomplicated sigmoid diverticulitis, no need for surgical intervention at this time. Continue treatment with IV ciprofloxacin and Flagyl. Leukocytosis improving. Has had some nausea with vomiting with liquid diet; okay to continue clear liquid diet for now. Will defer diet advancement to surgery. 2. LELA, resolving ? Creatinine 1.34 on admit, baseline around 0.7. Presume prerenal in setting of diverticulitis as above. Given IV fluids on admit, repeat creatinine 0.9 on hospital day 2. On clear liquid diet as above, will hold on further IV fluids. Continue to monitor daily BMP and urine output. DVT prophylaxis: Lovenox CODE STATUS: Full code, verified Expected disposition: Home, 2 to 3 days Total clinical time spent by myself addressing the patient's medical issues, reviewing all the data, and collaborating with patient's care team: 35 minutes. Charges/Coding Visit Charges Inpatient E&M: 82533 Subs Hosp L2
[2025-06-24 15:00] VITALS: BP 142/102; PULSE 96; RESP 18; TEMP 36.6; O2SAT 97
[2025-06-24 21:58] VITALS: BP 132/88; PULSE 78; RESP 16; TEMP 36.8; O2SAT 96
[2025-06-25 04:14] VITALS: BP 124/82; PULSE 85; RESP 16; TEMP 36.6; O2SAT 96
[2025-06-25] MEDS: 0.9% Normal Saline (250mL Bag) 250 ML 15 ML IV ×2 (04:14→13:31)
[2025-06-25] MEDS: metroNIDAZOLE 500 MG/100 ML BAG 100 MG IV ×3 (06:21→21:13)
--- NOTE | 2025-06-25 06:55 | PCM.PN.SRG ---
Subjective Subjective Patient evaluated resting comfortably in bed. He denies any nausea, vomiting. He notes abdominal discomfort has improved of LLQ. He notes feeling bloated still. He is passing flatus and having bowel movements. He denies any pain with bowel movements. Objective Data Objective Data Vital Signs: Vital Signs Temp Pulse Resp BP Pulse Ox O2 Del Method 97.9 F 85 16 124/82 H 96 Room Air 06/25/25 04:14 06/25/25 04:14 06/25/25 04:14 06/25/25 04:14 06/25/25 04:14 06/25/25 04:14 Oxygen Delivery Method Room Air Weight: 194 lb 12.8 oz Body Mass Index (BMI) 27.9 Intake & Output: Intake and Output for Last 24 Hours 06/23/25 06/24/25 06/25/25 23:59 23:59 23:59 Intake Total 1400 / 1600 2116 / 2116 288.00 / 288.00 Balance 1400 / 1600 2116 / 2116 288.00 / 288.00 Lab / Micro Data 06/25/25 06:40 06/25/25 06:40 Labs: Laboratory Results - last 24 hr 06/24/25 06:58: WBC 19.9 H, RBC 4.77, Hgb 15.0, Hct 41.8, MCV 87.6, MCH 31.4, MCHC 35.9, RDW Std Deviation 44.7 H, RDW Coeff of [place] 13.8, Plt Count 237, MPV 11.5, Sodium 134, Potassium 3.4, Chloride 96 L, Carbon Dioxide 22.3, Anion Gap 16 H, BUN 22 H, Creatinine 0.94, Estim Creat Clear Calc 111.09, Est GFR (MDRD) Non-Af 101, BUN/Creatinine Ratio 22.8 H, Glucose 120 H, Calcium 9.6 Physical Exam GI GI Narrative: Abdomen- slight distended, soft. Hypoactive bowel sounds. Very slight tenderness in the left lower quadrant. Assessment & Plan Assessment/Plan (1) Sigmoid diverticulitis: PLAN: I am following this patient in conjunction with Dr. Mejias. He will independently evaluate this patient. Labs reviewed. WBC continues to trend down Continue IV antibiotics for at least 1 more day May increase diet to full liquid or low-residue food At discharge, patient will need to continue oral antibiotics and follow-up with Dr. Mejias in 2 weeks from discharge date We will continue to monitor this patient Charges/Coding Visit Charges Inpatient E&M: 38604 Subs Hosp L2
[2025-06-25 07:12] LABS: Hematocrit 41.1 % (40-54); Hemoglobin 14.5 g/dL (13.0-16.5); Mean Corp Hgb Conc 35.3 g/dL (32-36); Mean Corpuscular Volume 87.8 fL (80-94); Mean Platelet Vol. 11.6 fl (6.2-12.0); Platelet Count 255 K/mm3 (150-450); RBC Distribution Width CV 13.8 % (11.6-14.6); RBC Distribution Width SD 44.4 fl (35.1-43.9); Red Blood Count 4.68 M/mm3 (4.6-6.2); White Blood Count 15.8 K/mm3 (4.4-11.0)
[2025-06-25 07:23] LABS: Anion Gap 15 (5-15); BUN 13 mg/dL (4-19); BUN/Creat Ratio 14.9 RATIO (10-20); Calcium,Total 9.3 mg/dL (7.6-11.0); Carbon Dioxide 23.8 mmol/L (21.0-32.0); Chloride 95 mmol/L (98-108); Estimated Creatinine Clearance 117.33 ml/min (50-250); Glucose 113 mg/dL (70-99); Potassium 2.9 mmol/L (3.3-5.1)
[2025-06-25 07:52] VITALS: BP 131/87; PULSE 79; RESP 15; TEMP 36.3; O2SAT 97
--- NOTE | 2025-06-25 07:56 | PN.HOSP_ITS ---
Reason for Visit Chief Complaint: Abdominal pain Subjective Subjective Patient is a 44-year-old gentleman admitted with abdominal pain diagnosed with recurrent sigmoid diverticulitis. Objective Data Objective Data Vital Signs: Vital Signs Temp Pulse Resp BP Pulse Ox O2 Del Method 97.3 F L 79 15 131/87 H 97 Room Air 06/25/25 07:52 06/25/25 07:52 06/25/25 07:52 06/25/25 07:52 06/25/25 07:52 06/25/25 07:52 Oxygen Delivery Method Room Air Weight: 88.36 kg Body Mass Index (BMI) 27.9 Intake & Output: Intake and Output for Last 24 Hours 06/23/25 06/24/25 06/25/25 23:59 23:59 23:59 Intake Total 1399 / 1599 388.00 / 388.00 Balance 1399 / 1599 388.00 / 388.00 Lab / Micro Data 06/25/25 06:40 06/25/25 06:40 Labs: Laboratory Results - last 24 hr 06/24/25 06:58: Sodium 134, Potassium 3.4, Chloride 96 L, Carbon Dioxide 22.3, A nion Gap 16 H, BUN 22 H, Creatinine 0.94, Estim Creat Clear Calc 111.09, Est GFR (MDRD) Non-Af 101, BUN/Creatinine Ratio 22.8 H, Glucose 120 H, Calcium 9.6 06/25/25 06:40: WBC 15.8 H, RBC 4.68, Hgb 14.5, Hct 41.1, MCV 87.8, MCH 31.0, MCHC 35.3, RDW Std Deviation 44.4 H, RDW Coeff of [place] 13.8, Plt Count 255, MPV 11.6, Sodium 133, Potassium 2.9 L, Chloride 95 L, Carbon Dioxide 23.8, Anion Gap 15, BUN 13, Creatinine 0.89, Estim Creat Clear Calc 117.33, Est GFR (MDRD) Non- Af 108, BUN/Creatinine Ratio 14.9, Glucose 113 H, Calcium 9.3 Physical Exam Narrative GENERAL: cooperative HEENT: Atraumatic; normocephalic EYES; Anicteric, Normal Conjunctiva NECK; supple, normal thyroid, RESPIRATORY: Diminished to auscultation CARDIOVASCULAR: Regular S1 S2, GI: soft, normoactive bowel sounds, : No Renal angle tenderness; EXTREMITIES: No edema, no clubbing, MUSCULOSKELETAL: no muscle wasting NEURO: Awake; no lateralizing signs. SKIN: No Rash PSYCH; Flat affect Assessment & Plan Assessment/Plan (1) Sigmoid diverticulitis: PLAN: Plan Patient is a 44-year-old gentleman who presented with abdominal pain 1. Recurrent sigmoid diverticulitis ? Admitted to regular medicine floor managed with Cipro and Flagyl. Patient was also seen in consultation by general surgery given history of sigmoid diverticulitis with abscess. Noted recommendations from general surgery reviewed. Patient WBC count remains elevated we will continue with current antibiotic therapy and observe for 1 more day. Patient diet to be advanced as tolerated 2. Hypokalemia ? Corrected per protocol 3. Acute kidney injury ? Present on admission baseline creatinine 0.7, creatinine on admission was 0.7 rehydrated resolved 4. DVT prophylaxis ? Subcu Lovenox Time spent in the patient's overall evaluation,decision-making process, review of diagnostic data, adjustment of management, discussion with other providers, nursing nursing and ancillary staff involved in patient's care documentation, 36 Minutes Charges/Coding Visit Charges Inpatient E&M: 40461 Subs Hosp L2
[2025-06-25] MEDS: Potassium Chloride Oral Tablet 20 MEQ 40 MEQ PO (08:05)
[2025-06-25] MEDS: Potassium Chloride 10mEq/100mL 10 MEQ/100 ML IV.SOLN. 100 MEQ IV BOLUS ×4 (08:06→11:09)
[2025-06-25] MEDS: 0.9% Saline Lock 10 ML Syringe IV (13:30)
[2025-06-25 14:00] VITALS: BP 137/89; PULSE 77; RESP 15; TEMP 37; O2SAT 95
[2025-06-25 14:19] LABS: Potassium 3.3 mmol/L (3.3-5.1)
[2025-06-25] MEDS: Potassium Chloride Oral Tablet 20 MEQ PO (18:01)
[2025-06-25 20:00] VITALS: BP 152/92; PULSE 85; RESP 16; TEMP 36.8; O2SAT 96
[2025-06-26] MEDS: metroNIDAZOLE 500 MG/100 ML BAG 100 MG IV ×2 (05:53→13:33)
[2025-06-26 05:54] VITALS: BP 148/101; PULSE 84; RESP 16; TEMP 36.6; O2SAT 96
[2025-06-26 07:18] LABS: Hematocrit 41.2 % (40-54); Hemoglobin 14.6 g/dL (13.0-16.5); Immature Granulocytes Count 0.160 X10^3/uL (0.0-0.0); Mean Corp Hgb Conc 35.4 g/dL (32-36); Mean Corpuscular Volume 87.5 fL (80-94); Mean Platelet Vol. 11.2 fl (6.2-12.0); NRBC Flagged by Analyzer 0 % (0-5); POSITIVE DIFFERENTIAL YES; Platelet Count 271 K/mm3 (150-450); RBC Distribution Width CV 13.8 % (11.6-14.6); RBC Distribution Width SD 44.2 fl (35.1-43.9); Red Blood Count 4.71 M/mm3 (4.6-6.2); White Blood Count 14.9 K/mm3 (4.4-11.0)
[2025-06-26 07:20] LABS: Differential Indicated SCAN CRITERIA MET
--- NOTE | 2025-06-26 07:31 | PCM.DC.SUM ---
Providers Date of Admission: 06/23/25 Date of Discharge: 06/26/25 Primary Care Physician: Dr. Jamar Roldan MD Consultations 06/23/25 19:03 Consult: General Surgery Routine Consulting Provider: Ion Mejias Reason for Consult: recurrent diverticulitis EMERGENT Consult: No MD Notified: Yes Date Notified: 06/23/25 Time Notified: 20:07 Method of Notification: Text Reason For Visit: RECURRENT DIVERTICULITIS Diagnosis Discharge Diagnosis (1) Sigmoid diverticulitis: Status: Acute Code(s): K57.32 - Diverticulitis of large intestine without perforation or abscess without bleeding Plan Patient is a 44-year-old gentleman who presented with abdominal pain 1. Recurrent sigmoid diverticulitis ? Admitted to regular medicine floor managed with Cipro and Flagyl. Patient was also seen in consultation by general surgery given history of sigmoid diverticulitis with abscess. Noted recommendations from general surgery reviewed. Patient WBC count remains elevated we will continue with current antibiotic therapy and observe for 1 more day. Patient diet to be advanced as tolerated 2. Hypokalemia ? Corrected per protocol 3. Acute kidney injury ? Present on admission baseline creatinine 0.7, creatinine on admission was 0.7 rehydrated resolved 4. DVT prophylaxis ? Subcu Lovenox Time spent in the patient's overall evaluation,decision-making process, review of diagnostic data, adjustment of management, discussion with other providers, nursing nursing and ancillary staff involved in patient's care documentation, 36 Minutes Medications at Discharge Home Medications acetaminophen 500 mg tablet 500 mg PO Q4H PRN fever or pain 06/23/25 acetaminophen 325 mg tablet 650 mg (2 x 325 mg) PO Q6H PRN PRN Pain 1-10 Or Fever>100.7 #0 tabs 06/26/25 ciprofloxacin HCl 500 mg tablet (Cipro) 500 mg PO BID #20 tabs 06/26/25 docusate sodium 100 mg capsule (Colace) 100 mg PO BID #30 caps 06/26/25 metronidazole 500 mg tablet 500 mg PO TID #30 tabs 06/26/25 potassium chloride 20 mEq tablet,extended release(part/cryst) 20 meq PO BIDCM #30 tabs 06/26/25 Physical Exam Narrative GENERAL: cooperative HEENT: Atraumatic; normocephalic EYES; Anicteric, Normal Conjunctiva NECK; supple, normal thyroid, RESPIRATORY: Diminished to auscultation CARDIOVASCULAR: Regular S1 S2, GI: soft, normoactive bowel sounds, : No Renal angle tenderness; EXTREMITIES: No edema, no clubbing, MUSCULOSKELETAL: no muscle wasting NEURO: Awake; no lateralizing signs. SKIN: No Rash PSYCH; Flat affect Weight / BMI Weight Weight: 88.36 kg Body Mass Index (BMI) 27.9 ABG / Lab / Microbiology Data 06/26/25 06:50 06/26/25 06:50 Laboratory: Laboratory Results - last 24 hr 06/25/25 12:36: Potassium 3.3 06/26/25 06:50: WBC 14.9 H, RBC 4.71, Hgb 14.6, Hct 41.2, MCV 87.5, MCH 31.0, MCHC 35.4, RDW Std Deviation 44.2 H, RDW Coeff of Hayden 13.8, Plt Count 271, MPV 11.2, Immature Gran % (Auto) 1.100 H, Neut % (Auto) 78.6 H, Lymph % (Auto) 8.8 L, [place] % (Auto) 10.2 H, Eos % (Auto) 1.0, Baso % (Auto) 0.3, Absolute Neuts (auto) 11.8 H, Absolute Lymphs (auto) 1.31, Nucleated RBC % 0, Sodium 134, Potassium 3.3, Chloride 96 L, Carbon Dioxide 22.4, Anion Gap 16 H, BUN 10, Creatinine 0.75, Estim Creat Clear Calc 139.23, Est GFR (MDRD) Non-Af 113, BUN/Creatinine Ratio 13.7, Glucose 106 H, Calcium 9.1, Phosphorus 3.6, Magnesium 2.3 H D/C Instructions Discharge Activity: Return to Normal Activity Call your doctor if you observe: Fever of 101 or Higher, Shortness of breath, Fainting spells and Chest pain DC O2, CPAP, BIPAP Needs Home O2 Discharge instructions: No Meaningful Use Info Meaningful Use Meaningful Use Diagnoses (Choose all that apply): None applicable Discharge Plan Admission Admit Date/Time: 06/23/25 18:00 Attending Provider: Christopher Little Primary Care Provider: Jamar Roldan Consulting Providers: Ion Mejias; Bob Murry Discharge Orders/Prescriptions Prescriptions: New acetaminophen 325 mg Tablet 650 mg PO Q6H PRN PRN (Reason: Pain 1-10 Or Fever>100.7) Qty: 0 0RF potassium chloride 20 mEq Tablet,Er Particles/Crystals 20 meq PO BIDCM Qty: 30 0RF docusate sodium [Colace] 100 mg capsule 100 mg PO BID Qty: 30 0RF ciprofloxacin HCl [Cipro] 500 mg tablet 500 mg PO BID Qty: 20 0RF metronidazole 500 mg tablet 500 mg PO TID Qty: 30 0RF No Action acetaminophen 500 mg Tablet 500 mg PO Q4H PRN (Reason: fever or pain) Referrals / Follow Up: Amos Beauchamp MD [Med Staff - Active Staff] - Within 2 Weeks Jamar Roldan MD [Primary Care Provider] - Within 2 Weeks Disposition Disposition (needs filled in before D/C Order can be placed): Home, Self Care Charges/Coding Visit Charges Inpatient E&M: 50556 Disch Hosp >30min
[2025-06-26 07:52] LABS: Anion Gap 16 (5-15); BUN 10 mg/dL (4-19); BUN/Creat Ratio 13.7 RATIO (10-20); Calcium,Total 9.1 mg/dL (7.6-11.0); Carbon Dioxide 22.4 mmol/L (21.0-32.0); Chloride 96 mmol/L (98-108); Estimated Creatinine Clearance 139.23 ml/min (50-250); Glucose 106 mg/dL (70-99); Magnesium 2.3 mg/dL (1.5-2.2); Potassium 3.3 mmol/L (3.3-5.1)
--- NOTE | 2025-06-26 08:16 | PCM.PN.SRG ---
Subjective Subjective Patient evaluated resting comfortably in bed. He notes very minimal amount of left lower quadrant discomfort. He denies any nausea, vomiting. He is passing flatus and having bowel movements. Objective Data Objective Data Vital Signs: Vital Signs Temp Pulse Resp BP Pulse Ox O2 Del Method 98 F 84 16 148/101 H 96 Room Air 06/26/25 05:54 06/26/25 05:54 06/26/25 05:54 06/26/25 05:54 06/26/25 05:54 06/26/25 05:54 Oxygen Delivery Method Room Air Weight: 194 lb 12.807 oz Body Mass Index (BMI) 27.9 Intake & Output: Intake and Output for Last 24 Hours 06/24/25 06/25/25 06/26/25 23:59 23:59 23:59 Intake Total 2116 1302.08 / 1302.08 200 / 200 Balance 2116 1302.08 / 1302.08 200 / 200 Lab / Micro Data 06/26/25 06:50 06/26/25 06:50 Labs: Laboratory Results - last 24 hr 06/25/25 12:36: Potassium 3.3 06/26/25 06:50: WBC 14.9 H, RBC 4.71, Hgb 14.6, Hct 41.2, MCV 87.5, MCH 31.0, MCHC 35.4, RDW Std Deviation 44.2 H, RDW Coeff of Hayden 13.8, Plt Count 271, MPV 11.2, Immature Gran % (Auto) 1.100 H, Neut % (Auto) 78.6 H, Lymph % (Auto) 8.8 L, [place] % (Auto) 10.2 H, Eos % (Auto) 1.0, Baso % (Auto) 0.3, Absolute Neuts (auto) 11.8 H, Absolute Lymphs (auto) 1.31, Nucleated RBC % 0, Sodium 134, Potassium 3.3, Chloride 96 L, Carbon Dioxide 22.4, Anion Gap 16 H, BUN 10, Creatinine 0.75, Estim Creat Clear Calc 139.23, Est GFR (MDRD) Non-Af 113, BUN/Creatinine Ratio 13.7, Glucose 106 H, Calcium 9.1, Phosphorus 3.6, Magnesium 2.3 H Physical Exam GI GI Narrative: Abdomen- soft, slightly distended, slight tenderness in the left lower quadrant. No guarding. Assessment & Plan Assessment/Plan (1) Sigmoid diverticulitis: PLAN: I am following this patient in conjunction with Dr. Beauchamp. He has independently evaluated this patient. Labs reviewed. WBC continues to trend down Increase diet to transitional diet. If patient tolerates transitional diet without pain, he may be discharged. Plan for outpatient oral antibiotics for a total of 10 days Discussed with the patient to continue a low fiber, low residue diet as an outpatient. Recommendations provided in the d/c instructions. Follow-up with Dr. Beauchamp in 2 weeks Charges/Coding Visit Charges Inpatient E&M: 06974 Subs Hosp L2
--- NOTE | 2025-06-26 08:25 | PCM.DC ---
Discharge Instructions DC O2, CPAP, BIPAP needs Home O2 Discharge instructions: No Dressing / Incision Discharge Activity: Return to Normal Activity and No Restrictions Dressing / Incision Call your doctor if you observe: Fever of 101 or Higher, Shortness of breath, Fainting spells and Chest pain Follow Up Care Please Follow Up With: Amos Beauchamp MD When: Please contact our office at [phone], option #2 to schedule a 2 week follow-up Test Results: Test results from this visit will be discussed in further detail at your follow-up appointment, if applicable. Discharge Plan Admission Admit Date/Time: 06/23/25 18:00 Attending Provider: Christopher Little Primary Care Provider: Jamar Roldan Consulting Providers: Ion Mejias; Bob Murry Instructions Additional Instructions / Restrictions: What are low-fiber foods? If your doctor tells you to follow a low-fiber diet, here are low-fiber foods you can eat and higher-fiber foods you should avoid. Remember to always choose foods that you would normally eat. Do not try any foods that caused you discomfort or allergic reactions in the past. If you are on a ?low-residue diet,? your food choices are even more restricted than those listed below. Talk with your cancer care team or dietitian if you have questions about certain foods or amounts. Meat, fish, poultry, and protein Eat: Tender cuts of meat Ground meat Tofu Fish and shellfish Smooth peanut butter Eggs Bake, broil, or poach meats, and use mild seasonings. Try preparing meats as stews, roasts, meatloaves, casseroles, sandwiches, and soups using ingredients on the approved lists. Scramble, poach, or boil eggs; or make omelets, souffl?s, custard, puddings, and casseroles, using ingredients noted below. You might want to ask your doctor, nurse, or dietitian about other foods may be OK for you to eat, and find out when you can go back to your normal diet. Avoid: All beans, nuts, peas, lentils, and legumes Processed meats, hot dogs, sausage, and cold cuts Tough meats with gristle Dairy: Milk and cheese Eat: Only in small to medium amounts and only if they don?t cause problems for you Milk, chocolate milk, buttermilk, and milk drinks Yogurt without seeds or granola Sour cream Cheese Cottage cheese Custard or pudding Ice cream or frozen desserts (without nuts) Cream sauces, soups, and casseroles You can use these items in desserts, snacks, or breads. Bread, cereals, and grains Eat: White breads, waffles, Turkish toast, plain white rolls, or white bread toast Pretzels Plain pasta or noodles White rice Crackers, zwieback, marybeth, and matzoh (no cracked wheat or whole grains) Cereals without whole grains, added fiber, seeds, raisins, or other dried fruit Use white flour for baking and making sauces. Grains, such as white rice, Cream of Wheat, or grits, should be well-cooked. Include the above grains in casseroles, dumplings, souffl?s, cheese strata, kugels, and pudding. Avoid any food that contains: Brown or wild rice Whole grains, cracked grains, or whole wheat products Kasha (buckwheat) Cornbread or cornmeal Michael crackers Bran Wheat germ Nuts Granola Coconut Dried fruit Seeds Vegetables and potatoes Eat: Tender, well-cooked fresh or canned vegetables without seeds, stems, or skins Cooked sweet or white potatoes without skins Strained vegetable juices without pulp or spices You can also eat these with cream sauces, or in soups, souffl?s, kugels, and casseroles. Avoid: All raw or steamed vegetables All types of beans Potatoes with skin Peas [place] Cabbage, broccoli, cauliflower, [place] sprouts, and greens Sauerkraut Onions Fruits and desserts Eat: Soft canned or cooked fruit without seeds or skins (small amounts) Small amounts of well-ripened banana Strained or clear juices Small amounts of soft cantaloupe or honeydew melon Cookies and other desserts without whole grains, dried fruit, berries, nuts, or coconut Sherbet and popsicles Serving suggestions include gelatins, milk shakes, frozen desserts, puddings, tapioca, cakes, and sauces. Avoid: All raw or dried fruits Berries Prune juice, prunes, and raisins Other foods Eat: Mayonnaise and mild salad dressings Margarine, butter, cream, and oils in small amounts Plain gravies Plain bouillon and broth Ketchup and mild mustard Spices, cooked herbs, and salt Sugar, honey, and syrup Clear jellies Hard candy and marshmallows Plain chocolate Avoid: Marmalade Pickles, olives, relish, and horseradish Popcorn Potato chips Liquids Keep in mind that low-fiber foods cause fewer bowel movements and smaller stools. You may need to drink extra fluids to help prevent constipation while you are on a low-fiber diet. Drink plenty of water unless your doctor tells you otherwise, and use juices and milk as noted above. Discharge Orders/Prescriptions Prescriptions: New acetaminophen 325 mg Tablet 650 mg PO Q6H PRN PRN (Reason: Pain 1-10 Or Fever>100.7) Qty: 0 0RF potassium chloride 20 mEq Tablet,Er Particles/Crystals 20 meq PO BIDCM Qty: 30 0RF docusate sodium [Colace] 100 mg capsule 100 mg PO BID Qty: 30 0RF ciprofloxacin HCl [Cipro] 500 mg tablet 500 mg PO BID Qty: 20 0RF metronidazole 500 mg tablet 500 mg PO TID Qty: 30 0RF No Action acetaminophen 500 mg Tablet 500 mg PO Q4H PRN (Reason: fever or pain) Referrals / Follow Up: Amos Beauchamp MD [Med Staff - Active Staff] - Within 2 Weeks Jamar Roldan MD [Primary Care Provider] - Within 2 Weeks Disposition Disposition (needs filled in before D/C Order can be placed): Home, Self Care
[2025-06-26 08:44] VITALS: BP 144/94; PULSE 78; RESP 13; TEMP 36.7; O2SAT 99
[2025-06-26] MEDS: Potassium Chloride Oral Tablet 20 MEQ PO (08:47)
--- NOTE | 2025-06-26 11:30 | PHA.DC_ITS ---
Pharmacy [facility] Service has performed discharge medication reconciliation and counseling for this patient. 1. CIPROFLOXACIN 500MG PO BID X 10 DAYS 2. DOCUSATE 100MG PO BID 3. METRONIDAZOLE 500MG PO TID X 10 DAYS 4. POTASSIUM CHLORIDE 20MEQ PO BIDCM The patient's discharge medication list was reviewed for discrepancies and discrepancies were resolved. The patient was counseled on the following discharge medications and changes in medications for homegoing were reviewed. The Reason for Use, instructions for use, and potential side effects were reviewed for all new medications. The patient's questions regarding all of their medications were answered. The patient was able to verbally demonstrate an understanding of their discharge medications.
[2025-06-26] MEDS: 0.9% Saline Lock 10 ML Syringe IV (13:33)
[2025-06-26 13:56] VITALS: BP 136/80; PULSE 91; RESP 14; TEMP 36.9; O2SAT 94
== END 2025-06-26 15:05 | disposition home or self-care (01) | DRG 392 ==
LOC: ED 16:01 → MS3 18:30
PROVIDERS: Physician Assistant; Admitting Provider Hospitalist; Emergency Provider Emergency Medicine; PCP Family Medicine; Visit Provider Internal Medicine
DX: K57.32 Diverticulitis of large intestine without perforation or abscess without bleeding (principal); N17.9 Acute kidney failure, unspecified; E87.6 Hypokalemia; Z87.891 Personal history of nicotine dependence
CPT/HCPCS: 36415; 74177; 80048; 81001; 83605; 83735; 84100; 84132; 85025; 85027; 87040; 94668; 99284; Q9967; A4216; J0744; J2405